=== PATIENT | male | born 1975 | race Caucasian/White ===

== ENCOUNTER 2022-07-11 21:41 | Inpatient (IN) | payer OTHER, SELFPAY ==
[2022-07-11 22:30] VITALS: BP 142/82; PULSE 87; RESP 18; TEMP 36.3; O2SAT 95
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
[2022-07-12 06:00] VITALS: BP 132/72; PULSE 73; RESP 18; TEMP 36.6; O2SAT 96
[2022-07-12] MEDS: Levothyroxine Sodium 112 MCG TABLET PO (08:12)
[2022-07-12] MEDS: Omeprazole 20 MG CAPSULE.DR PO ×2 (08:12→18:16)
[2022-07-12] MEDS: Acetaminophen 325 MG TABLET 650 MG PO ×2 (08:16→23:32)
--- NOTE | 2022-07-12 09:25 | HO.PM.IMCN ---
History of Present Illness Data of Consult Service Date: 07/12/22 Primary Care Provider: SHARI Hollins HPI Reason for consult: Routine Medical H&P This is an insightful 47 yo M who is admitted to the inpatient psychiatric unit. Medical consult has been requested for routine medical H&P (he was transferred from an outside facility). Pt seen and examined in the exam room. He denies any current medical issues. He endorses a medical history of HLD, hypothyroid and GERD. PMH HLD Hypothyroid GERD PSH Denies FH non-contributory SH Denies etoh, illicit substances; endorses smoking cigars a few times a year Review of Systems Review of Systems: negative except HPI PMFSH Social History Household Members: None Housing: Apartment Do you presently have visiting nurse or other home services: No Patient Tobacco Use Status: Never used Tobacco Smoked in Last 30 Days: No e-Cigarette/Vaping Use: Never Used Use of substances other than those prescribed or required for medical reasons: No Have you been hit, kicked, punched, or otherwise hurt by someone within the past year? If so, by whom?: No Do you feel safe in your current relationship?: No Current Relationship Is there a partner from a previous relationship who is making you feel unsafe now?: No Are you made to feel afraid or neglected: No Gnosticist Healthcare Practices: Anabaptist Advance Directives: No Advance Directives Information Provided: No Do you have thoughts of harming others: None Do you have a plan to hurt others: No Plan Recently lost weight without trying: No How much weight loss: Not applicable Eating poorly because of decreased appetite: No Nutrition screen score: 0 Nutrition Risks: No Nutritional Risk Poor oral hygiene: No Meds Allergies Allergy/AdvReac Type Severity Reaction Status Date / Time No Known Allergies Allergy Verified 07/11/22 22:21 Active Medications: Current Medications Acetaminophen (Acetaminophen 325 Mg Tablet) 650 mg PO Q6H PRN PRN Reason: Headache/Pain Mild Scale (1-3) Last Admin: 07/12/22 08:16 Dose: 650 mg Al Hydroxide/Mg Hydroxide (Magnesium Hydrox/Alum Hydrox 30 Ml Oral.Susp) 30 ml PO Q6H PRN PRN Reason: Heartburn/Nausea Haloperidol (Haloperidol 5 Mg Tablet) 10 mg PO BEDTIME BECKY Hydroxyzine HCl (Hydroxyzine Hcl 25 Mg Tablet) 25 mg PO Q6H PRN PRN Reason: Anxiety Levothyroxine Sodium (Levothyroxine Sodium 112 Mcg Tablet) 112 mcg PO DAILY@0630 [facility] Last Admin: 07/12/22 08:12 Dose: 112 mcg Magnesium Hydroxide (Milk Of Magnesia 30 Ml Oral.Susp) 30 ml PO DAILY PRN PRN Reason: Constipation Nicotine Polacrilex (Nicotine Polacrilex 2 Mg Gum) 4 mg BUCCAL Q2H PRN PRN Reason: Nicotine Cravings Omeprazole (Omeprazole 20 Mg Capsule.Dr) 20 mg PO BID@0630,1630 [facility] Last Admin: 07/12/22 08:12 Dose: 20 mg Quetiapine Fumarate (Quetiapine Fumarate 200 Mg Tablet) 200 mg PO BEDTIME [facility] Trazodone HCl (Trazodone Hcl 50 Mg Tablet) 50 mg PO BEDTIME PRN PRN Reason: Insomnia Home Medications Medication Instructions Recorded Confirmed Last Taken Type haloperidol 10 mg tablet 10 mg PO BEDTIME 07/11/22 07/11/22 07/11/22 20:39 History levothyroxine 112 mcg tablet 112 mcg PO DAILY 07/11/22 07/11/22 Unknown History omeprazole 20 mg capsule,delayed 20 mg PO BID 07/11/22 07/11/22 Unknown History release quetiapine 200 mg tablet (Seroquel) 200 mg PO BEDTIME 07/11/22 07/11/22 07/11/22 20:30 History atorvastatin 40 mg tablet 40 mg PO BEDTIME 07/12/22 07/12/22 Unknown History Physical Exam Vital Signs and Narrative: Vital Signs: Last Vital Signs Temp 97.9 F 07/12/22 06:00 Pulse 73 07/12/22 06:00 Resp 18 07/12/22 06:00 BP 132/72 07/12/22 06:00 Pulse Ox 96 07/12/22 06:00 O2 Del Method 07/12/22 06:00 Const: Other: General - no acute distress, appears comfortable Cardiovascular - regular rate and rhythm, S1-S2 Lungs - normal respiratory effort, clear to auscultation bilaterally, no wheezing Abdomen - soft, nontender, no rebound or guarding Extremities - no edema bilaterally Neuro - awake and alert, no focal deficits; cn 2-12 intact b/l Assessment and Plan (1) Routine medical exam: Status: Acute Plan 47 yo M admitted to inpatient psych. Medical consult requested for routine medical H&P (transferred from outside facility). Pt appears to be medically stable. Continue his baseline meds. Consider routine lab (CBC/BMP) if not done at transferring facility. Will sign off, please consult if any issues arise. Thank you.
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
[2022-07-12 20:15] VITALS: BP 147/78; PULSE 86; RESP 18; TEMP 36.6; O2SAT 95
[2022-07-12] MEDS: HaloperidoL 5 MG TABLET 10 MG PO (22:02)
[2022-07-12] MEDS: Atorvastatin Calcium 40 MG TABLET PO (22:02)
[2022-07-12] MEDS: Lithium Carbonate ER 300 MG TABLET.ER 600 MG PO (22:02)
[2022-07-12] MEDS: hydrOXYzine HCL 25 MG TABLET PO (22:02)
[2022-07-12] MEDS: QUEtiapine Fumarate 200 MG TABLET PO (22:02)
[2022-07-13] MEDS: traZODone HCL 50 MG TABLET PO ×2 (01:14→02:17)
[2022-07-13 08:10] VITALS: BP 128/74; PULSE 97; RESP 18; TEMP 36.4; O2SAT 95
[2022-07-13] MEDS: Lithium Carbonate ER 300 MG TABLET.ER 600 MG PO ×2 (10:12→20:36)
[2022-07-13] MEDS: Levothyroxine Sodium 112 MCG TABLET PO (10:13)
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
[2022-07-13] MEDS: Omeprazole 20 MG CAPSULE.DR PO ×2 (11:56→18:11)
[2022-07-13 19:25] VITALS: BP 158/85; PULSE 89; RESP 16; TEMP 36.6; O2SAT 96
[2022-07-13] MEDS: Atorvastatin Calcium 40 MG TABLET PO (20:36)
[2022-07-13] MEDS: QUEtiapine Fumarate 200 MG TABLET PO (20:36)
[2022-07-13] MEDS: HaloperidoL 5 MG TABLET 10 MG PO (20:36)
[2022-07-14] MEDS: traZODone HCL 50 MG TABLET PO ×2 (00:46→01:48)
[2022-07-14] MEDS: Acetaminophen 325 MG TABLET 650 MG PO ×2 (01:15→08:21)
[2022-07-14] MEDS: Dry Mouth Spray 60 ML SPRAY 1 SPRAY MUCOUS MEM ×2 (02:43→05:29)
[2022-07-14] MEDS: Omeprazole 20 MG CAPSULE.DR PO ×2 (05:52→16:11)
[2022-07-14] MEDS: Levothyroxine Sodium 112 MCG TABLET PO (05:52)
[2022-07-14 08:00] VITALS: BP 136/78; PULSE 84; RESP 18; TEMP 36.6; O2SAT 96
[2022-07-14] MEDS: Lithium Carbonate ER 300 MG TABLET.ER 600 MG PO ×2 (08:22→21:35)
[2022-07-14 19:15] VITALS: BP 132/82; PULSE 88; RESP 16; TEMP 36.8; O2SAT 96
--- NOTE | 2022-07-14 19:23 | HO.PSYCHPN ---
Subjective Subjective Date of Service: 07/14/22 Reason For Visit: Schizoaffective disorder bipolar type Interim History: pt still hyperverabl at times, elevated mood, pressured speech, disorganized thought process, racing thoughts, insomnia, poor attention/concentration, impulsivity.?Pt med compliant. Was awake until 1 am last night. Pt tolerating lithium with no side effects Medication Compliance: Yes Side effects from medications: No Attending Groups: No Review of Systems Acute medical concerns: No Medical Review of Systems: unchanged Review of Systems Review of Systems negative except HPI Mental Status Exam Mental Status Exam Narrative: calm, cooperative. intense eye contact. speech incr in amount. nml rate, loudness, tone. decr latency. thoughts generally linear in answering questions and attempting to lay out his narrative. delusions present. affect constricted, hypointense, non-labile. mood not assessed. AVH of angels and demons. denies SI/SIBI/HI. Diagnostics Vital Signs (24Hr): Vital Signs - 24 hr 07/14/22 08:00 Temperature 97.8 F Pulse Rate 84 Respiratory Rate 18 Blood Pressure 136/78 Pulse Oximetry 96 Oxygen Delivery Method Room Air Medications Medications Current Medications Acetaminophen (Acetaminophen 325 Mg Tablet) 650 mg PO Q6H PRN PRN Reason: Headache/Pain Mild Scale (1-3) Last Admin: 07/14/22 08:21 Dose: 650 mg Al Hydroxide/Mg Hydroxide (Magnesium Hydrox/Alum Hydrox 30 Ml Oral.Susp) 30 ml PO Q6H PRN PRN Reason: Heartburn/Nausea Atorvastatin Calcium (Atorvastatin Calcium 40 Mg Tablet) 40 mg PO BEDTIME [facility] Last Admin: 07/13/22 20:36 Dose: 40 mg Haloperidol (Haloperidol 5 Mg Tablet) 10 mg PO BEDTIME [facility] Last Admin: 07/13/22 20:36 Dose: 10 mg Hydroxyzine HCl (Hydroxyzine Hcl 25 Mg Tablet) 25 mg PO Q6H PRN PRN Reason: Anxiety Last Admin: 07/12/22 22:02 Dose: 25 mg Levothyroxine Sodium (Levothyroxine Sodium 112 Mcg Tablet) 112 mcg PO DAILY@0630 [facility] Last Admin: 07/14/22 05:52 Dose: 112 mcg [place] Carbonate ([place] Carbonate Er 300 Mg Tablet.Er) 600 mg PO BID [facility] Last Admin: 07/14/22 08:22 Dose: 600 mg Magnesium Hydroxide (Milk Of Magnesia 30 Ml Oral.Susp) 30 ml PO DAILY PRN PRN Reason: Constipation Melatonin (Melatonin 3 Mg Tablet) 3 mg PO BEDTIME BECKY Nicotine Polacrilex (Nicotine Polacrilex 2 Mg Gum) 4 mg BUCCAL Q2H PRN PRN Reason: Nicotine Cravings Omeprazole (Omeprazole 20 Mg Capsule.Dr) 20 mg PO BID@0630,1630 [facility] Last Admin: 07/14/22 16:11 Dose: 20 mg Quetiapine Fumarate (Quetiapine Fumarate 200 Mg Tablet) 200 mg PO BEDTIME BECKY Last Admin: 07/13/22 20:36 Dose: 200 mg Saliva Substitute (Dry Mouth [place] 60 Ml [place]) 1 spray MUCOUS MEM Q2H PRN PRN Reason: Dry Mouth Last Admin: 07/14/22 05:29 Dose: 1 spray Trazodone HCl (Trazodone Hcl 100 Mg Tablet) 100 mg PO BEDTIME PRN PRN Reason: Insomnia Allergies Allergies Allergy/AdvReac Type Severity Reaction Status Date / Time No Known Allergies Allergy Verified 07/11/22 22:21 Assessment & Plan Assessment & Plan (1) Schizoaffective disorder, bipolar type: Status: Acute Code(s): F25.0 - Schizoaffective disorder, bipolar type (2) Hypothyroidism: Status: Acute Code(s): E03.9 - Hypothyroidism, unspecified Plan 07/14/22 increased trazodone to 100mg aths and added melatonin 3mg at hs continue haldol 10 and seroquel 200 at HS (recently restarted after having been off of them for a week). started lithium 600 BID 07/12 sukhdev. euthyroid currently; continue thyroid replacement therapy. I spent _25 minutes with the patient and/or on the patient floor today, greater than?50% of which was spent counseling/coordinating care. Reason for contiued inpatient stay Substantial Risk for: harm to self, inability to function and rapid decompensation
[2022-07-14] MEDS: HaloperidoL 5 MG TABLET 10 MG PO (21:35)
[2022-07-14] MEDS: QUEtiapine Fumarate 200 MG TABLET PO (21:35)
[2022-07-14] MEDS: Melatonin 3 MG TABLET PO (21:35)
[2022-07-14] MEDS: Atorvastatin Calcium 40 MG TABLET PO (21:35)
[2022-07-14] MEDS: traZODone HCL 100 MG TABLET PO (21:39)
[2022-07-15] MEDS: Dry Mouth Spray 60 ML SPRAY 1 SPRAY MUCOUS MEM ×2 (04:20→22:39)
[2022-07-15] MEDS: Omeprazole 20 MG CAPSULE.DR PO ×2 (09:01→15:42)
[2022-07-15] MEDS: Lithium Carbonate ER 300 MG TABLET.ER 600 MG PO ×2 (09:01→20:23)
[2022-07-15] MEDS: Levothyroxine Sodium 112 MCG TABLET PO (09:01)
[2022-07-15 09:40] VITALS: BP 118/61; PULSE 90; RESP 16; TEMP 36.7; O2SAT 97
[2022-07-15] MEDS: QUEtiapine Fumarate 200 MG TABLET PO (20:23)
[2022-07-15] MEDS: Melatonin 3 MG TABLET PO (20:24)
[2022-07-15] MEDS: HaloperidoL 5 MG TABLET 10 MG PO (20:24)
[2022-07-15] MEDS: Atorvastatin Calcium 40 MG TABLET PO (20:24)
[2022-07-15 20:34] VITALS: BP 142/85; PULSE 86; RESP 20; TEMP 36.4; O2SAT 95
--- NOTE | 2022-07-15 22:06 | P.PNPSI_ITS ---
Subjective Subjective Date of Service: 07/15/22 Reason For Visit: Schizoaffective disorder bipolar type Interim History: calm, cooperative. remains delusional and tangential. asking for his hormone levels to be checked - cortisol and dopamine. an christ told him on the way out the door from the interview that it was the dopamine level he needed to get. reports he slept well last night for the first time in a very long time. informed we will be checking lithium level and associated labs on friday. per staff, c/o being up all NOC friday into friday. appearing hypomanic. hearing from [facility]. reports he is eating well. stood behind his 1:1 staff, holding their shoulders, and whispered into their ear. Mental Status Exam Mental Status Exam Narrative: calm, cooperative. intense eye contact. speech incr in amount. nml rate, loudness, tone. decr latency. thoughts generally tangential and delusional. affect constricted, normo-intense, non-labile. mood not assessed. AVH of angelmihaela and leonides. denies SI/SIBI/HI. Diagnostics Vital Signs (24Hr): Vital Signs - 24 hr 07/15/22 09:40 07/15/22 20:34 Temperature 98.1 F 97.5 F Pulse Rate 90 86 Respiratory Rate 16 20 Blood Pressure 118/61 142/85 H Pulse Oximetry 97 95 Oxygen Delivery Method Room Air Room Air Medications Medications Current Medications Acetaminophen (Acetaminophen 325 Mg Tablet) 650 mg PO Q6H PRN PRN Reason: Headache/Pain Mild Scale (1-3) Last Admin: 07/14/22 08:21 Dose: 650 mg Al Hydroxide/Mg Hydroxide (Magnesium Hydrox/Alum Hydrox 30 Ml Oral.Susp) 30 ml PO Q6H PRN PRN Reason: Heartburn/Nausea Atorvastatin Calcium (Atorvastatin Calcium 40 Mg Tablet) 40 mg PO BEDTIME [facility] Last Admin: 07/15/22 20:24 Dose: 40 mg Haloperidol (Haloperidol 5 Mg Tablet) 10 mg PO BEDTIME [facility] Last Admin: 07/15/22 20:24 Dose: 10 mg Hydroxyzine HCl (Hydroxyzine Hcl 25 Mg Tablet) 25 mg PO Q6H PRN PRN Reason: Anxiety Last Admin: 07/12/22 22:02 Dose: 25 mg Levothyroxine Sodium (Levothyroxine Sodium 112 Mcg Tablet) 112 mcg PO DAILY@0630 [facility] Last Admin: 07/15/22 09:01 Dose: 112 mcg [place] Carbonate ([place] Carbonate Er 300 Mg Tablet.Er) 600 mg PO BID [facility] Last Admin: 07/15/22 20:23 Dose: 600 mg Magnesium Hydroxide (Milk Of Magnesia 30 Ml Oral.Susp) 30 ml PO DAILY PRN PRN Reason: Constipation Melatonin (Melatonin 3 Mg Tablet) 3 mg PO BEDTIME [facility] Last Admin: 07/15/22 20:24 Dose: 3 mg Nicotine Polacrilex (Nicotine Polacrilex 2 Mg Gum) 4 mg BUCCAL Q2H PRN PRN Reason: Nicotine Cravings Omeprazole (Omeprazole 20 Mg Capsule.Dr) 20 mg PO BID@0630,1630 [facility] Last Admin: 07/15/22 15:42 Dose: 20 mg Quetiapine Fumarate (Quetiapine Fumarate 200 Mg Tablet) 200 mg PO BEDTIME [facility] Last Admin: 07/15/22 20:23 Dose: 200 mg Saliva Substitute (Dry Mouth [place] 60 Ml [place]) 1 spray MUCOUS MEM Q2H PRN PRN Reason: Dry Mouth Last Admin: 07/15/22 04:20 Dose: 1 spray Trazodone HCl (Trazodone Hcl 100 Mg Tablet) 100 mg PO BEDTIME PRN PRN Reason: Insomnia Last Admin: 07/14/22 21:39 Dose: 100 mg Allergies Allergies Allergy/AdvReac Type Severity Reaction Status Date / Time No Known Allergies Allergy Verified 07/11/22 22:21 Assessment & Plan Assessment & Plan (1) Schizoaffective disorder, bipolar type: Status: Acute Code(s): F25.0 - Schizoaffective disorder, bipolar type (2) Hypothyroidism: Status: Acute Code(s): E03.9 - Hypothyroidism, unspecified Plan 07/14/22 increased trazodone to 100mg aths and added melatonin 3mg at hs continue haldol 10 and seroquel 200 at HS (recently restarted after having been off of them for a week). started lithium 600 BID 07/12 sukhdev. euthyroid currently; continue thyroid replacement therapy. 07/15: check lithium level and associated labs weds. does not appear to have improved substantially since starting lithium. I spent ___25___ minutes with the patient and/or on the patient floor today, greater than?50% of which was spent counseling/coordinating care. Reason for contiued inpatient stay Substantial Risk for: inability to function and med/psych decompensation
[2022-07-15] MEDS: traZODone HCL 100 MG TABLET PO (22:39)
[2022-07-16] MEDS: Dry Mouth Spray 60 ML SPRAY 1 SPRAY MUCOUS MEM ×4 (00:03→22:24)
[2022-07-16] MEDS: traZODone HCL 100 MG TABLET PO (00:42)
[2022-07-16 08:10] VITALS: BP 112/56; PULSE 77; RESP 18; TEMP 36.6; O2SAT 98
[2022-07-16] MEDS: Lithium Carbonate ER 300 MG TABLET.ER 600 MG PO ×2 (09:36→22:22)
[2022-07-16] MEDS: Levothyroxine Sodium 112 MCG TABLET PO (09:36)
[2022-07-16] MEDS: Omeprazole 20 MG CAPSULE.DR PO ×2 (10:14→17:31)
--- NOTE | 2022-07-16 20:55 | P.PNPSI_ITS ---
Subjective Subjective Date of Service: 07/16/22 Reason For Visit: Schizoaffective disorder bipolar type Interim History: calm, cooperative. no substantial change in presentation. remains delusional and experiencing mixed-modality hallucinations. c/o nightmares. agrees to DC trazodone and increase HS seroquel from 200 mg to 300 mg. per staff, hypo- manic. angels and gargoyles. pleasant in the afternoon, social. c/o insomnia. medication for sleep not helpful. no SI/HI, feels safe on the unit. getting PRN trazodone for sleep, up every couple of hours in the night, c/o nightmares. Mental Status Exam Mental Status Exam Narrative: calm, cooperative. intense eye contact. speech nml amount. nml rate, loudness, tone, latency. thoughts generally more organized, remain delusional. affect constricted, normo-intense, non-labile. mood not assessed. AVH of angels and demons. denies SI/SIBI/HI. Diagnostics Vital Signs (24Hr): Vital Signs - 24 hr 07/16/22 08:10 Temperature 97.8 F Pulse Rate 77 Respiratory Rate 18 Blood Pressure 112/56 L Pulse Oximetry 98 Oxygen Delivery Method Room Air Medications Medications Current Medications Acetaminophen (Acetaminophen 325 Mg Tablet) 650 mg PO Q6H PRN PRN Reason: Headache/Pain Mild Scale (1-3) Last Admin: 07/14/22 08:21 Dose: 650 mg Al Hydroxide/Mg Hydroxide (Magnesium Hydrox/Alum Hydrox 30 Ml Oral.Susp) 30 ml PO Q6H PRN PRN Reason: Heartburn/Nausea Atorvastatin Calcium (Atorvastatin Calcium 40 Mg Tablet) 40 mg PO BEDTIME [facility] Last Admin: 07/15/22 20:24 Dose: 40 mg Haloperidol (Haloperidol 5 Mg Tablet) 10 mg PO BEDTIME [facility] Last Admin: 07/15/22 20:24 Dose: 10 mg Hydroxyzine HCl (Hydroxyzine Hcl 25 Mg Tablet) 25 mg PO Q6H PRN PRN Reason: Anxiety Last Admin: 07/12/22 22:02 Dose: 25 mg Levothyroxine Sodium (Levothyroxine Sodium 112 Mcg Tablet) 112 mcg PO DAILY@0630 [facility] Last Admin: 07/16/22 09:36 Dose: 112 mcg [place] Carbonate ([place] Carbonate Er 300 Mg Tablet.Er) 600 mg PO BID [facility] Last Admin: 07/16/22 09:36 Dose: 600 mg Magnesium Hydroxide (Milk Of Magnesia 30 Ml Oral.Susp) 30 ml PO DAILY PRN PRN Reason: Constipation Melatonin (Melatonin 3 Mg Tablet) 3 mg PO BEDTIME [facility] Last Admin: 07/15/22 20:24 Dose: 3 mg Nicotine Polacrilex (Nicotine Polacrilex 2 Mg Gum) 4 mg BUCCAL Q2H PRN PRN Reason: Nicotine Cravings Omeprazole (Omeprazole 20 Mg Capsule.Dr) 20 mg PO BID@0630,1630 [facility] Last Admin: 07/16/22 17:31 Dose: 20 mg Quetiapine Fumarate (Quetiapine Fumarate 200 Mg Tablet) 200 mg PO BEDTIME [facility] Last Admin: 07/15/22 20:23 Dose: 200 mg Saliva Substitute (Dry Mouth [place] 60 Ml [place]) 1 spray MUCOUS MEM Q2H PRN PRN Reason: Dry Mouth Last Admin: 07/16/22 06:39 Dose: 1 spray Trazodone HCl (Trazodone Hcl 100 Mg Tablet) 100 mg PO BEDTIME PRN PRN Reason: Insomnia Last Admin: 07/16/22 00:42 Dose: 100 mg Allergies Allergies Allergy/AdvReac Type Severity Reaction Status Date / Time No Known Allergies Allergy Verified 07/11/22 22:21 Assessment & Plan Assessment & Plan (1) Schizoaffective disorder, bipolar type: Status: Acute Code(s): F25.0 - Schizoaffective disorder, bipolar type (2) Hypothyroidism: Status: Acute Code(s): E03.9 - Hypothyroidism, unspecified Plan 07/14/22 increased trazodone to 100mg aths and added melatonin 3mg at hs continue haldol 10 and seroquel 200 at HS (recently restarted after having been off of them for a week). started lithium 600 BID 07/12 sukhdev. euthyroid currently; continue thyroid replacement therapy. 07/15: check lithium level and associated labs weds. does not appear to have improved substantially since starting lithium. 07/16: DC trazodone as pt c/o nightmares and other sedating medications more likely to be helpful for pt's illness. increase HS seroquel from 200 to 300 mg for insomnia/psychosis/velia. perhaps slight improvement in hyperverbality and thought organization. I spent ___25___ minutes with the patient and/or on the patient floor today, greater than?50% of which was spent counseling/coordinating care. Reason for contiued inpatient stay Substantial Risk for: inability to function
[2022-07-16 21:00] VITALS: BP 137/67; PULSE 81; RESP 16; TEMP 36.4; O2SAT 97
[2022-07-16] MEDS: QUEtiapine Fumarate 100 MG TABLET PO (22:23)
[2022-07-16] MEDS: HaloperidoL 5 MG TABLET 10 MG PO (22:23)
[2022-07-16] MEDS: Melatonin 3 MG TABLET PO (22:23)
[2022-07-16] MEDS: Atorvastatin Calcium 40 MG TABLET PO (22:24)
[2022-07-16] MEDS: QUEtiapine Fumarate 200 MG TABLET PO (22:46)
[2022-07-17 08:15] VITALS: BP 128/67; PULSE 71; RESP 18; TEMP 36.7; O2SAT 97
[2022-07-17 09:20] LABS: MANUAL DIFF FLAG NO
[2022-07-17 09:25] LABS: Basophils Absolute Auto 0.1 X10*3/uL (0.0-0.2); Basophils Percent Auto 0.9 % (0-2); Eosinophils Absolute Auto 0.3 X10*3/uL (0.0-0.4); Eosinophils Percent Auto 4.7 % (0-4); Hematocrit 40.6 % (42.0-52.0); Hemoglobin 13.1 g/dl (14.0-18.0); Imm Gran Abs Auto 0.01 X10*3/uL (0.00-0.03); Imm Gran Pct Auto 0.2 % (0.0-0.4); Lymphocytes Absolute Auto 1.6 X10*3/uL (1.2-4.9); Lymphocytes Percent Auto 28.7 % (20-40); Mean Corpuscular HGB Conc 32.3 g/dl (31.0-36.0); Mean Corpuscular Hemoglobin 27.7 pg (27.0-33.0); Mean Corpuscular Volume 85.8 fL (80.0-98.0); Mean Platelet Volume 8.8 fL (9.4-12.4); Monocytes Absolute Auto 0.6 X10*3/uL (0.1-1.2); Monocytes Percent Auto 10.4 % (2-11); Neutrophils Absolute Auto 3.1 x10*3/uL (2.0-8.3); Neutrophils Percent Auto 55.1 % (45-73); Platelet Count 218 X10*3/uL (160-400); Red Blood Count 4.73 X10*6/uL (4.60-5.80); Red Cell Distribution Width 14.2 % (11.0-16.0); White Blood Count 5.6 X10*3/uL (4.8-10.8)
[2022-07-17] MEDS: Lithium Carbonate ER 300 MG TABLET.ER 600 MG PO (09:31)
[2022-07-17] MEDS: Levothyroxine Sodium 112 MCG TABLET PO (09:31)
[2022-07-17 09:58] LABS: Lithium 0.37 mmol/L (0.60-1.20)
[2022-07-17 10:06] LABS: Anion Gap 11 (12-20); Blood Urea Nitrogen 12 mg/dL (9-16); Calcium 9.2 mg/dL (8.4-10.2); Carbon Dioxide 30 mmol/L (22-29); Chloride 103 mmol/L (96-108); Estimated Glomerular Filt Rate > 60; Glucose Random 102 mg/dL (60-115); Potassium 4.4 mmol/L (3.3-5.1); Sodium 140 mmol/L (135-145)
[2022-07-17] MEDS: Omeprazole 20 MG CAPSULE.DR PO ×2 (10:15→16:18)
--- NOTE | 2022-07-17 16:10 | P.PNPSI_ITS ---
Subjective Subjective Date of Service: 07/17/22 Reason For Visit: Schizoaffective disorder bipolar type Interim History: calm, cooperative. reports feeling a bit better today. no nightmares last night. not pressured, organized, not spontaneously going on about demons. review labs, low lithium level. agrees to increase dosing to 900 BID. per staff, eating well. c/o AVH. c/o poor sleep 2/2 nightmares. no anx. dep 11/15. denies SI/HI/AVH. Mental Status Exam Mental Status Exam Narrative: calm, cooperative. intense eye contact. speech nml amount. nml rate, loudness, tone, latency. thoughts organized, remain delusional. affect constricted, normo-intense, non-labile. mood not assessed. AVH of angels and demons. denies SI/SIBI/HI. Diagnostics Vital Signs (24Hr): Vital Signs - 24 hr 07/16/22 21:00 07/17/22 08:15 Temperature 97.6 F 98.1 F Pulse Rate 81 71 Respiratory Rate 16 18 Blood Pressure 137/67 128/67 Pulse Oximetry 97 97 Oxygen Delivery Method Room Air Room Air Labs Results: 07/17/22 09:02 07/17/22 09:02 Labs: Laboratory Results - last 48 hr 07/17/22 07/17/22 07/17/22 09:02 09:02 09:02 WBC 5.6 RBC 4.73 Hgb 13.1 L Hct 40.6 L MCV 85.8 MCH 27.7 MCHC 32.3 RDW 14.2 Plt Count 218 MPV 8.8 L Immature Gran % (Auto) 0.2 Neut % (Auto) 55.1 Lymph % (Auto) 28.7 [place] % (Auto) 10.4 Eos % (Auto) 4.7 H Baso % (Auto) 0.9 Lymph # (Auto) 1.6 [place] # (Auto) 0.6 Eos # (Auto) 0.3 Baso # (Auto) 0.1 Abs Immat Gran (auto) 0.01 Absolute Neuts (auto) 3.1 Absolute Nucleated RBC 0.000 Nucleated RBC % (auto) 0.0 Sodium 140 Potassium 4.4 Chloride 103 Carbon Dioxide 30 H Anion Gap 11 L BUN 12 Creatinine 0.72 Estim Creat Clear Calc TNP Estimated GFR > 60 Random Glucose 102 Calcium 9.2 [place] 0.37 L Medications Medications Current Medications Acetaminophen (Acetaminophen 325 Mg Tablet) 650 mg PO Q6H PRN PRN Reason: Headache/Pain Mild Scale (1-3) Last Admin: 07/14/22 08:21 Dose: 650 mg Al Hydroxide/Mg Hydroxide (Magnesium Hydrox/Alum Hydrox 30 Ml Oral.Susp) 30 ml PO Q6H PRN PRN Reason: Heartburn/Nausea Atorvastatin Calcium (Atorvastatin Calcium 40 Mg Tablet) 40 mg PO BEDTIME [facility] Last Admin: 07/16/22 22:24 Dose: 40 mg Haloperidol (Haloperidol 5 Mg Tablet) 10 mg PO BEDTIME [facility] Last Admin: 07/16/22 22:23 Dose: 10 mg Hydroxyzine HCl (Hydroxyzine Hcl 25 Mg Tablet) 25 mg PO Q6H PRN PRN Reason: Anxiety Last Admin: 07/12/22 22:02 Dose: 25 mg Levothyroxine Sodium (Levothyroxine Sodium 112 Mcg Tablet) 112 mcg PO DAILY@0630 [facility] Last Admin: 07/17/22 09:31 Dose: 112 mcg [place] Carbonate ([place] Carbonate Er 450 Mg Tablet.Er) 900 mg PO BID [facility] Magnesium Hydroxide (Milk Of Magnesia 30 Ml Oral.Susp) 30 ml PO DAILY PRN PRN Reason: Constipation Melatonin (Melatonin 3 Mg Tablet) 3 mg PO BEDTIME [facility] Last Admin: 07/16/22 22:23 Dose: 3 mg Nicotine Polacrilex (Nicotine Polacrilex 2 Mg Gum) 4 mg BUCCAL Q2H PRN PRN Reason: Nicotine Cravings Omeprazole (Omeprazole 20 Mg Capsule.Dr) 20 mg PO BID@0630,1630 [facility] Last Admin: 07/17/22 10:15 Dose: 20 mg Quetiapine Fumarate (Quetiapine Fumarate 300 Mg Tablet) 300 mg PO BEDTIME [facility] Saliva Substitute (Dry Mouth [place] 60 Ml [place]) 1 spray MUCOUS MEM Q2H PRN PRN Reason: Dry Mouth Last Admin: 07/16/22 22:24 Dose: 1 spray Allergies Allergies Allergy/AdvReac Type Severity Reaction Status Date / Time No Known Allergies Allergy Verified 07/11/22 22:21 Assessment & Plan Assessment & Plan (1) Schizoaffective disorder, bipolar type: Status: Acute Code(s): F25.0 - Schizoaffective disorder, bipolar type (2) Hypothyroidism: Status: Acute Code(s): E03.9 - Hypothyroidism, unspecified Plan 07/14/22 increased trazodone to 100mg aths and added melatonin 3mg at hs continue haldol 10 and seroquel 200 at HS (recently restarted after having been off of them for a week). started lithium 600 BID 07/12 sukhdev. euthyroid currently; continue thyroid replacement therapy. 07/15: check lithium level and associated labs weds. does not appear to have improved substantially since starting lithium. 07/16: DC trazodone as pt c/o nightmares and other sedating medications more likely to be helpful for pt's illness. increase HS seroquel from 200 to 300 mg for insomnia/psychosis/velia. perhaps slight improvement in hyperverbality and thought organization. 07/17: lithium level 0.37. increase dosing to 900 BID. improvements continue - not pressured, organized thoughts, appears more relaxed. I spent ___25___ minutes with the patient and/or on the patient floor today, greater than?50% of which was spent counseling/coordinating care. Reason for contiued inpatient stay Substantial Risk for: inability to function and rapid decompensation
[2022-07-17 18:43] VITALS: BP 131/77; PULSE 88; RESP 16; TEMP 36.8; O2SAT 96
[2022-07-17] MEDS: Acetaminophen 325 MG TABLET 650 MG PO (18:53)
[2022-07-17 18:56] VITALS: BMI 40.8
[2022-07-17] MEDS: HaloperidoL 5 MG TABLET 10 MG PO (19:49)
[2022-07-17] MEDS: Lithium Carbonate ER 450 MG TABLET.ER 900 MG PO (19:49)
[2022-07-17] MEDS: QUEtiapine Fumarate 300 MG TABLET PO (19:49)
[2022-07-17] MEDS: Melatonin 3 MG TABLET PO (19:50)
[2022-07-17] MEDS: Atorvastatin Calcium 40 MG TABLET PO (19:50)
[2022-07-18 07:00] VITALS: BMI 40.4
[2022-07-18 08:05] VITALS: BP 137/73; PULSE 80; RESP 16; TEMP 36.8; O2SAT 96
[2022-07-18] MEDS: Omeprazole 20 MG CAPSULE.DR PO ×2 (08:35→17:28)
[2022-07-18] MEDS: Lithium Carbonate ER 450 MG TABLET.ER 900 MG PO ×2 (08:35→20:02)
[2022-07-18] MEDS: Levothyroxine Sodium 112 MCG TABLET PO (08:35)
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
[2022-07-18 18:00] VITALS: BP 136/83; PULSE 89; RESP 16; TEMP 36.8; O2SAT 97
[2022-07-18] MEDS: QUEtiapine Fumarate 300 MG TABLET PO (20:02)
[2022-07-18] MEDS: HaloperidoL 5 MG TABLET 10 MG PO (20:02)
[2022-07-18] MEDS: Melatonin 3 MG TABLET PO (20:03)
[2022-07-18] MEDS: Atorvastatin Calcium 40 MG TABLET PO (20:03)
[2022-07-19] MEDS: Levothyroxine Sodium 112 MCG TABLET PO (08:19)
[2022-07-19] MEDS: Ferrous Sulfate 300 MG/5 ML LIQUID PO (08:19)
[2022-07-19] MEDS: Lithium Carbonate ER 450 MG TABLET.ER 900 MG PO ×2 (08:19→23:28)
[2022-07-19] MEDS: Omeprazole 20 MG CAPSULE.DR PO ×2 (08:19→17:18)
[2022-07-19 08:20] VITALS: BP 140/62; PULSE 78; RESP 16; TEMP 36.4; O2SAT 96
--- NOTE | 2022-07-19 15:32 | P.PNPSI_ITS ---
Subjective Subjective Date of Service: 07/19/22 Reason For Visit: Schizoaffective disorder bipolar type Interim History: calm, cooperative. able to reflect that he is more organized and slowed from when he came in. AVH continue apace, however. no complaints or requests. per staff, attending groups. eating well. AVH, anxiety, depression. visible. overwhelmed due to AVH. anx 8, dep 6. no SI/HI. feels safe on the unit. Mental Status Exam Mental Status Exam Narrative: calm, cooperative. intense eye contact, decreased eye blink. speech nml amount. nml rate, loudness, tone, latency. thoughts organized, remain delusional. affect constricted, hyper-intense, non-labile. mood not assessed. AVH of angels and demons. denies SI/SIBI/HI. Diagnostics Vital Signs (24Hr): Vital Signs - 24 hr 07/18/22 18:00 07/19/22 08:20 Temperature 98.3 F 97.5 F Pulse Rate 89 78 Respiratory Rate 16 16 Blood Pressure 136/83 140/62 H Pulse Oximetry 97 96 Oxygen Delivery Method Room Air Room Air BMI result Body Mass Index 40.4 Labs Results: 07/17/22 09:02 07/17/22 09:02 Medications Medications Current Medications Acetaminophen (Acetaminophen 325 Mg Tablet) 650 mg PO Q6H PRN PRN Reason: Headache/Pain Mild Scale (1-3) Last Admin: 07/17/22 18:53 Dose: 650 mg Al Hydroxide/Mg Hydroxide (Magnesium Hydrox/Alum Hydrox 30 Ml Oral.Susp) 30 ml PO Q6H PRN PRN Reason: Heartburn/Nausea Atorvastatin Calcium (Atorvastatin Calcium 40 Mg Tablet) 40 mg PO BEDTIME [facility] Last Admin: 07/18/22 20:03 Dose: 40 mg Ferrous Sulfate (Ferrous Sulfate 300 Mg/5 Ml Liquid) 300 mg PO DAILY [facility] Last Admin: 07/19/22 08:19 Dose: 300 mg Haloperidol (Haloperidol 5 Mg Tablet) 10 mg PO BEDTIME [facility] Last Admin: 07/18/22 20:02 Dose: 10 mg Hydroxyzine HCl (Hydroxyzine Hcl 25 Mg Tablet) 25 mg PO Q6H PRN PRN Reason: Anxiety Last Admin: 07/12/22 22:02 Dose: 25 mg Levothyroxine Sodium (Levothyroxine Sodium 112 Mcg Tablet) 112 mcg PO DAILY@0630 [facility] Last Admin: 07/19/22 08:19 Dose: 112 mcg [place] Carbonate ([place] Carbonate Er 450 Mg Tablet.Er) 900 mg PO BID [facility] Last Admin: 07/19/22 08:19 Dose: 900 mg Magnesium Hydroxide (Milk Of Magnesia 30 Ml Oral.Susp) 30 ml PO DAILY PRN PRN Reason: Constipation Melatonin (Melatonin 3 Mg Tablet) 3 mg PO BEDTIME [facility] Last Admin: 07/18/22 20:03 Dose: 3 mg Nicotine Polacrilex (Nicotine Polacrilex 2 Mg Gum) 4 mg BUCCAL Q2H PRN PRN Reason: Nicotine Cravings Omeprazole (Omeprazole 20 Mg Capsule.Dr) 20 mg PO BID@0630,1630 [facility] Last Admin: 07/19/22 08:19 Dose: 20 mg Quetiapine Fumarate (Quetiapine Fumarate 300 Mg Tablet) 300 mg PO BEDTIME [facility] Last Admin: 07/18/22 20:02 Dose: 300 mg Saliva Substitute (Dry Mouth [place] 60 Ml [place]) 1 spray MUCOUS MEM Q2H PRN PRN Reason: Dry Mouth Last Admin: 07/16/22 22:24 Dose: 1 spray Allergies Allergies Allergy/AdvReac Type Severity Reaction Status Date / Time No Known Allergies Allergy Verified 07/11/22 22:21 Assessment & Plan Assessment & Plan (1) Schizoaffective disorder, bipolar type: Status: Acute Code(s): F25.0 - Schizoaffective disorder, bipolar type (2) Hypothyroidism: Status: Acute Code(s): E03.9 - Hypothyroidism, unspecified Plan 07/14/22 increased trazodone to 100mg aths and added melatonin 3mg at hs continue haldol 10 and seroquel 200 at HS (recently restarted after having been off of them for a week). started lithium 600 BID 07/12 sukhdev. euthyroid currently; continue thyroid replacement therapy. 07/15: check lithium level and associated labs weds. does not appear to have improved substantially since starting lithium. 07/16: DC trazodone as pt c/o nightmares and other sedating medications more likely to be helpful for pt's illness. increase HS seroquel from 200 to 300 mg for insomnia/psychosis/velia. perhaps slight improvement in hyperverbality and thought organization. 07/17: lithium level 0.37. increase dosing to 900 BID. improvements continue - not pressured, organized thoughts, appears more relaxed. 07/18: continue current mgmt. no change in presentation. 07/18: continue current mgmt. no change in presentation. check lithium level around 07/22. I spent ___25___ minutes with the patient and/or on the patient floor today, greater than?50% of which was spent counseling/coordinating care. Reason for contiued inpatient stay Substantial Risk for: inability to function and rapid decompensation
[2022-07-19 23:25] VITALS: BP 139/80; PULSE 79; RESP 16; TEMP 36.6; O2SAT 96
[2022-07-19] MEDS: HaloperidoL 5 MG TABLET 10 MG PO (23:28)
[2022-07-19] MEDS: Atorvastatin Calcium 40 MG TABLET PO (23:29)
[2022-07-19] MEDS: Melatonin 3 MG TABLET PO (23:29)
[2022-07-19] MEDS: QUEtiapine Fumarate 300 MG TABLET PO (23:29)
[2022-07-20 09:15] VITALS: BP 133/68; PULSE 88; RESP 20; TEMP 36.8; O2SAT 95
[2022-07-20] MEDS: Levothyroxine Sodium 112 MCG TABLET PO (09:27)
[2022-07-20] MEDS: Omeprazole 20 MG CAPSULE.DR PO ×2 (09:27→17:58)
[2022-07-20] MEDS: Lithium Carbonate ER 450 MG TABLET.ER 900 MG PO ×2 (09:28→20:39)
[2022-07-20] MEDS: Ferrous Sulfate 300 MG/5 ML LIQUID PO (09:28)
[2022-07-20] MEDS: Acetaminophen 325 MG TABLET 650 MG PO (14:47)
--- NOTE | 2022-07-20 18:29 | HO.PSYCHPN ---
Subjective Subjective Date of Service: 07/20/22 Reason For Visit: Schizoaffective disorder bipolar type Interim History: calm, cooperative. aware he has slowed down a lot and his thoughts are much more organized than prior. continues to experience AVH, however. he believes they will never go away. describes how the guardian fozia are positioning themselves around the unit to guard against demons. c/o minnor ongoing insomnia, declines to increase seroquel. planning to check lithium mondahy. per staff, isolative. anx 11/15. denies depression. nervous about leaving the hospital, concerned he may be attacked by demons if he goes. went to sleep early, appeared to sleep well. Mental Status Exam Mental Status Exam Narrative: calm, cooperative. intense eye contact, decreased eye blink. speech nml amount. nml rate, loudness, tone, latency. thoughts organized, remain delusional. affect constricted, hyper-intense, non-labile. mood not assessed. AVH of angels and demons. denies SI/SIBI/HI. Diagnostics Vital Signs (24Hr): Vital Signs - 24 hr 07/19/22 23:25 07/20/22 09:15 Temperature 97.8 F 98.3 F Pulse Rate 79 88 Respiratory Rate 16 20 Blood Pressure 139/80 133/68 Pulse Oximetry 96 95 Oxygen Delivery Method Room Air Room Air BMI result Body Mass Index 40.4 Labs Results: 07/17/22 09:02 07/17/22 09:02 Medications Medications Current Medications Acetaminophen (Acetaminophen 325 Mg Tablet) 650 mg PO Q6H PRN PRN Reason: Headache/Pain Mild Scale (1-3) Last Admin: 07/20/22 14:47 Dose: 650 mg Al Hydroxide/Mg Hydroxide (Magnesium Hydrox/Alum Hydrox 30 Ml Oral.Susp) 30 ml PO Q6H PRN PRN Reason: Heartburn/Nausea Atorvastatin Calcium (Atorvastatin Calcium 40 Mg Tablet) 40 mg PO BEDTIME [facility] Last Admin: 07/19/22 23:29 Dose: 40 mg Ferrous Sulfate (Ferrous Sulfate 300 Mg/5 Ml Liquid) 300 mg PO DAILY [facility] Last Admin: 07/20/22 09:28 Dose: 300 mg Haloperidol (Haloperidol 5 Mg Tablet) 10 mg PO BEDTIME [facility] Last Admin: 07/19/22 23:28 Dose: 10 mg Hydroxyzine HCl (Hydroxyzine Hcl 25 Mg Tablet) 25 mg PO Q6H PRN PRN Reason: Anxiety Last Admin: 07/12/22 22:02 Dose: 25 mg Levothyroxine Sodium (Levothyroxine Sodium 112 Mcg Tablet) 112 mcg PO DAILY@0630 [facility] Last Admin: 07/20/22 09:27 Dose: 112 mcg [place] Carbonate ([place] Carbonate Er 450 Mg Tablet.Er) 900 mg PO BID [facility] Last Admin: 07/20/22 09:28 Dose: 900 mg Magnesium Hydroxide (Milk Of Magnesia 30 Ml Oral.Susp) 30 ml PO DAILY PRN PRN Reason: Constipation Melatonin (Melatonin 3 Mg Tablet) 3 mg PO BEDTIME [facility] Last Admin: 07/19/22 23:29 Dose: 3 mg Nicotine Polacrilex (Nicotine Polacrilex 2 Mg Gum) 4 mg BUCCAL Q2H PRN PRN Reason: Nicotine Cravings Omeprazole (Omeprazole 20 Mg Capsule.Dr) 20 mg PO BID@0630,1630 [facility] Last Admin: 07/20/22 17:58 Dose: 20 mg Quetiapine Fumarate (Quetiapine Fumarate 300 Mg Tablet) 300 mg PO BEDTIME [facility] Last Admin: 07/19/22 23:29 Dose: 300 mg Saliva Substitute (Dry Mouth [place] 60 Ml [place]) 1 spray MUCOUS MEM Q2H PRN PRN Reason: Dry Mouth Last Admin: 07/16/22 22:24 Dose: 1 spray Allergies Allergies Allergy/AdvReac Type Severity Reaction Status Date / Time No Known Allergies Allergy Verified 07/11/22 22:21 Assessment & Plan Assessment & Plan (1) Schizoaffective disorder, bipolar type: Status: Acute Code(s): F25.0 - Schizoaffective disorder, bipolar type (2) Hypothyroidism: Status: Acute Code(s): E03.9 - Hypothyroidism, unspecified Plan 07/14/22 increased trazodone to 100mg aths and added melatonin 3mg at hs continue haldol 10 and seroquel 200 at HS (recently restarted after having been off of them for a week). started lithium 600 BID 07/12 sukhdev. euthyroid currently; continue thyroid replacement therapy. 07/15: check lithium level and associated labs weds. does not appear to have improved substantially since starting lithium. 07/16: DC trazodone as pt c/o nightmares and other sedating medications more likely to be helpful for pt's illness. increase HS seroquel from 200 to 300 mg for insomnia/psychosis/velia. perhaps slight improvement in hyperverbality and thought organization. 07/17: lithium level 0.37. increase dosing to 900 BID. improvements continue - not pressured, organized thoughts, appears more relaxed. 07/18: continue current mgmt. no change in presentation. 07/18: continue current mgmt. no change in presentation. check lithium level around 07/22. 07/20: continue current mgmt. stable presentation with improved manic Sx but ongoing psychotic Sx. I spent ____15__ minutes with the patient and/or on the patient floor today, greater than?50% of which was spent counseling/coordinating care. Reason for contiued inpatient stay Substantial Risk for: inability to function and med/psych decompensation
[2022-07-20 20:32] VITALS: BP 138/74; PULSE 83; RESP 18; O2SAT 95
[2022-07-20] MEDS: QUEtiapine Fumarate 300 MG TABLET PO (20:39)
[2022-07-20] MEDS: Atorvastatin Calcium 40 MG TABLET PO (20:39)
[2022-07-20] MEDS: Melatonin 3 MG TABLET PO (20:39)
[2022-07-20] MEDS: HaloperidoL 5 MG TABLET 10 MG PO (20:40)
[2022-07-21] MEDS: Dry Mouth Spray 60 ML SPRAY 1 SPRAY MUCOUS MEM (06:50)
[2022-07-21 09:05] VITALS: BP 133/60; PULSE 80; RESP 20; TEMP 36.7; O2SAT 97
[2022-07-21] MEDS: Lithium Carbonate ER 450 MG TABLET.ER 900 MG PO ×2 (09:13→21:47)
[2022-07-21] MEDS: Omeprazole 20 MG CAPSULE.DR PO ×2 (09:13→17:03)
[2022-07-21] MEDS: Levothyroxine Sodium 112 MCG TABLET PO (09:13)
[2022-07-21] MEDS: Ferrous Sulfate 300 MG/5 ML LIQUID PO (09:14)
[2022-07-21 18:00] VITALS: BP 147/75; PULSE 88; RESP 18; TEMP 36.9; O2SAT 96
[2022-07-21] MEDS: Melatonin 3 MG TABLET PO (21:48)
[2022-07-21] MEDS: QUEtiapine Fumarate 300 MG TABLET PO (21:48)
[2022-07-21] MEDS: Atorvastatin Calcium 40 MG TABLET PO (21:48)
[2022-07-21] MEDS: HaloperidoL 5 MG TABLET 10 MG PO (21:48)
--- NOTE | 2022-07-21 21:58 | HO.PSYCHPN ---
Subjective Subjective Date of Service: 07/21/22 Reason For Visit: Schizoaffective disorder bipolar type Interim History: calm, cooperative, resting in bed. no complaints or requests. per staff, feeling better. active, brighter. developing plans for after discharge. having nightmares. no anx/dep. eating and sleeping well. listening to music. Mental Status Exam Mental Status Exam Narrative: calm, cooperative. intense eye contact, decreased eye blink. speech nml amount. nml rate, loudness, tone, latency. thoughts organized, remain delusional. affect constricted, hyper-intense, non-labile. mood not assessed. AVH of angels and yobanions. denies SI/SIBI/HI. Diagnostics Vital Signs (24Hr): Vital Signs - 24 hr 07/21/22 09:05 Temperature 98.1 F Pulse Rate 80 Respiratory Rate 20 Blood Pressure 133/60 Pulse Oximetry 97 Oxygen Delivery Method Room Air BMI result Body Mass Index 40.4 Labs Results: 07/17/22 09:02 07/17/22 09:02 Medications Medications Current Medications Acetaminophen (Acetaminophen 325 Mg Tablet) 650 mg PO Q6H PRN PRN Reason: Headache/Pain Mild Scale (1-3) Last Admin: 07/20/22 14:47 Dose: 650 mg Al Hydroxide/Mg Hydroxide (Magnesium Hydrox/Alum Hydrox 30 Ml Oral.Susp) 30 ml PO Q6H PRN PRN Reason: Heartburn/Nausea Atorvastatin Calcium (Atorvastatin Calcium 40 Mg Tablet) 40 mg PO BEDTIME [facility] Last Admin: 07/21/22 21:48 Dose: 40 mg Ferrous Sulfate (Ferrous Sulfate 300 Mg/5 Ml Liquid) 300 mg PO DAILY [facility] Last Admin: 07/21/22 09:14 Dose: 300 mg Haloperidol (Haloperidol 5 Mg Tablet) 10 mg PO BEDTIME [facility] Last Admin: 07/21/22 21:48 Dose: 10 mg Hydroxyzine HCl (Hydroxyzine Hcl 25 Mg Tablet) 25 mg PO Q6H PRN PRN Reason: Anxiety Last Admin: 07/12/22 22:02 Dose: 25 mg Levothyroxine Sodium (Levothyroxine Sodium 112 Mcg Tablet) 112 mcg PO DAILY@0630 [facility] Last Admin: 07/21/22 09:13 Dose: 112 mcg [place] Carbonate ([place] Carbonate Er 450 Mg Tablet.Er) 900 mg PO BID [facility] Last Admin: 07/21/22 21:47 Dose: 900 mg Magnesium Hydroxide (Milk Of Magnesia 30 Ml Oral.Susp) 30 ml PO DAILY PRN PRN Reason: Constipation Melatonin (Melatonin 3 Mg Tablet) 3 mg PO BEDTIME [facility] Last Admin: 07/21/22 21:48 Dose: 3 mg Nicotine Polacrilex (Nicotine Polacrilex 2 Mg Gum) 4 mg BUCCAL Q2H PRN PRN Reason: Nicotine Cravings Omeprazole (Omeprazole 20 Mg Capsule.Dr) 20 mg PO BID@0630,1630 [facility] Last Admin: 07/21/22 17:03 Dose: 20 mg Quetiapine Fumarate (Quetiapine Fumarate 300 Mg Tablet) 300 mg PO BEDTIME [facility] Last Admin: 07/21/22 21:48 Dose: 300 mg Saliva Substitute ([place]ry [place]outh [place] 60 Ml [place]) 1 spray MUCOUS MEM Q2H PRN PRN Reason: Dry Mouth Last Admin: 07/21/22 06:50 Dose: 1 spray Allergies Allergies Allergy/AdvReac Type Severity Reaction Status Date / Time No Known Allergies Allergy Verified 07/11/22 22:21 Assessment & Plan Assessment & Plan (1) Schizoaffective disorder, bipolar type: Status: Acute Code(s): F25.0 - Schizoaffective disorder, bipolar type (2) Hypothyroidism: Status: Acute Code(s): E03.9 - Hypothyroidism, unspecified Plan 07/14/22 increased trazodone to 100mg aths and added melatonin 3mg at hs continue haldol 10 and seroquel 200 at HS (recently restarted after having been off of them for a week). started lithium 600 BID 07/12 sukhdev. euthyroid currently; continue thyroid replacement therapy. 07/15: check lithium level and associated labs weds. does not appear to have improved substantially since starting lithium. 07/16: DC trazodone as pt c/o nightmares and other sedating medications more likely to be helpful for pt's illness. increase HS seroquel from 200 to 300 mg for insomnia/psychosis/velia. perhaps slight improvement in hyperverbality and thought organization. 07/17: lithium level 0.37. increase dosing to 900 BID. improvements continue - not pressured, organized thoughts, appears more relaxed. 07/18: continue current mgmt. no change in presentation. 07/18: continue current mgmt. no change in presentation. check lithium level around 07/22. 07/20: continue current mgmt. stable presentation with improved manic Sx but ongoing psychotic Sx. 07/21: stable, contnue current mgmt. check labs tomorrow morning. I spent ___15___ minutes with the patient and/or on the patient floor today, greater than?50% of which was spent counseling/coordinating care. Reason for contiued inpatient stay Substantial Risk for: inability to function and med/psych decompensation
[2022-07-22 08:16] VITALS: BP 132/83; PULSE 82; RESP 17; TEMP 36.7; O2SAT 98
[2022-07-22] MEDS: Ferrous Sulfate 300 MG/5 ML LIQUID PO (08:18)
[2022-07-22] MEDS: Lithium Carbonate ER 450 MG TABLET.ER 900 MG PO ×2 (08:19→20:41)
[2022-07-22] MEDS: Omeprazole 20 MG CAPSULE.DR PO ×2 (08:19→17:37)
[2022-07-22] MEDS: Levothyroxine Sodium 112 MCG TABLET PO (08:19)
[2022-07-22 08:27] LABS: MANUAL DIFF FLAG NO
[2022-07-22 08:37] LABS: Basophils Percent Auto 0.6 % (0-2); Eosinophils Absolute Auto 0.3 X10*3/uL (0.0-0.4); Eosinophils Percent Auto 4.8 % (0-4); Hematocrit 40.3 % (42.0-52.0); Hemoglobin 13.1 g/dl (14.0-18.0); Imm Gran Abs Auto 0.04 X10*3/uL (0.00-0.03); Imm Gran Pct Auto 0.6 % (0.0-0.4); Lymphocytes Percent Auto 28.8 % (20-40); Mean Corpuscular HGB Conc 32.5 g/dl (31.0-36.0); Mean Corpuscular Hemoglobin 27.7 pg (27.0-33.0); Mean Corpuscular Volume 85.2 fL (80.0-98.0); Mean Platelet Volume 8.9 fL (9.4-12.4); Monocytes Absolute Auto 0.7 X10*3/uL (0.1-1.2); Monocytes Percent Auto 10.5 % (2-11); Neutrophils Absolute Auto 3.7 x10*3/uL (2.0-8.3); Neutrophils Percent Auto 54.7 % (45-73); Platelet Count 207 X10*3/uL (160-400); Red Blood Count 4.73 X10*6/uL (4.60-5.80); Red Cell Distribution Width 14.5 % (11.0-16.0); White Blood Count 6.8 X10*3/uL (4.8-10.8)
[2022-07-22 09:13] LABS: Lithium 0.66 mmol/L (0.60-1.20)
[2022-07-22 09:16] LABS: Anion Gap 11 (12-20); Blood Urea Nitrogen 12 mg/dL (9-16); Carbon Dioxide 29 mmol/L (22-29); Chloride 104 mmol/L (96-108); Creatinine Clr Calc Pharmacy 156.6; Estimated Glomerular Filt Rate > 60; Glucose Random 116 mg/dL (60-115); Potassium 4.3 mmol/L (3.3-5.1); Sodium 140 mmol/L (135-145)
--- NOTE | 2022-07-22 14:13 | HO.PSYCHPN ---
Subjective Subjective Date of Service: 07/22/22 Reason For Visit: Schizoaffective disorder bipolar type Interim History: calm, cooperative. reports feeling improved mood-javier, especially in terms of depression he came in with. discuss expectation that we will not make progress on AVH and that discharge later this week may be appropriate. pt appears to be in agreement. per staff, alert, awake. guarded. denies anx/dep. denies SI/HI. endorsing AVH. safe, active, appropriate. eating and sleeping well. Mental Status Exam Mental Status Exam Narrative: calm, cooperative. intense eye contact, decreased eye blink. speech nml amount. nml rate, loudness, tone, latency. thoughts organized, remain delusional. affect constricted, hyper-intense, non-labile. mood much less depressed. AVH of angels and demons. denies SI/SIBI/HI. Diagnostics Vital Signs (24Hr): Vital Signs - 24 hr 07/21/22 18:00 07/22/22 08:16 Temperature 98.5 F 98.1 F Pulse Rate 88 82 Respiratory Rate 18 17 Blood Pressure 147/75 H 132/83 Pulse Oximetry 96 98 Oxygen Delivery Method Room Air Room Air BMI result Body Mass Index 40.4 Labs Results: 07/22/22 08:13 07/22/22 08:13 Labs: Laboratory Results - last 48 hr 07/22/22 07/22/22 07/22/22 08:13 08:13 08:13 WBC 6.8 RBC 4.73 Hgb 13.1 L Hct 40.3 L MCV 85.2 MCH 27.7 MCHC 32.5 RDW 14.5 Plt Count 207 MPV 8.9 L Immature Gran % (Auto) 0.6 H Neut % (Auto) 54.7 Lymph % (Auto) 28.8 [place] % (Auto) 10.5 Eos % (Auto) 4.8 H Baso % (Auto) 0.6 Lymph # (Auto) 2.0 [place] # (Auto) 0.7 Eos # (Auto) 0.3 Baso # (Auto) 0.0 Abs Immat Gran (auto) 0.04 H Absolute Neuts (auto) 3.7 Absolute Nucleated RBC 0.000 Nucleated RBC % (auto) 0.0 Sodium 140 Potassium 4.3 Chloride 104 Carbon Dioxide 29 Anion Gap 11 L BUN 12 Creatinine 0.76 Estim Creat Clear Calc 156.6 Estimated GFR > 60 Random Glucose [address] [place] 0.66 Medications Medications Current Medications Acetaminophen (Acetaminophen 325 Mg Tablet) 650 mg PO Q6H PRN PRN Reason: Headache/Pain Mild Scale (1-3) Last Admin: 07/20/22 14:47 Dose: 650 mg Al Hydroxide/Mg Hydroxide (Magnesium Hydrox/Alum Hydrox 30 Ml Oral.Susp) 30 ml PO Q6H PRN PRN Reason: Heartburn/Nausea Atorvastatin Calcium (Atorvastatin Calcium 40 Mg Tablet) 40 mg PO BEDTIME [facility] Last Admin: 07/21/22 21:48 Dose: 40 mg Ferrous Sulfate (Ferrous Sulfate 300 Mg/5 Ml Liquid) 300 mg PO DAILY [facility] Last Admin: 07/22/22 08:18 Dose: 300 mg Haloperidol (Haloperidol 5 Mg Tablet) 10 mg PO BEDTIME [facility] Last Admin: 07/21/22 21:48 Dose: 10 mg Hydroxyzine HCl (Hydroxyzine Hcl 25 Mg Tablet) 25 mg PO Q6H PRN PRN Reason: Anxiety Last Admin: 07/12/22 22:02 Dose: 25 mg Levothyroxine Sodium (Levothyroxine Sodium 112 Mcg Tablet) 112 mcg PO DAILY@0630 [facility] Last Admin: 07/22/22 08:19 Dose: [address] [place] [address] [place] Carbonate ([place] [address] [place] Carbonate Er 450 Mg Tablet.Er) 900 mg PO BID [facility] Last Admin: 07/22/22 08:19 Dose: 900 mg Magnesium Hydroxide (Milk Of Magnesia 30 Ml Oral.Susp) 30 ml PO DAILY PRN PRN Reason: Constipation Melatonin (Melatonin 3 Mg Tablet) 3 mg PO BEDTIME [facility] Last Admin: 07/21/22 21:48 Dose: 3 mg Nicotine Polacrilex (Nicotine Polacrilex 2 Mg Gum) 4 mg BUCCAL Q2H PRN PRN Reason: Nicotine Cravings Omeprazole (Omeprazole 20 Mg Capsule.Dr) 20 mg PO BID@0630,1630 [facility] Last Admin: 07/22/22 08:19 Dose: 20 mg Quetiapine Fumarate (Quetiapine Fumarate 300 Mg Tablet) 300 mg PO BEDTIME [facility] Last Admin: 07/21/22 21:48 Dose: 300 mg Saliva Substitute (Dry Mouth [place] 60 Ml [place]) 1 spray MUCOUS MEM Q2H PRN PRN Reason: Dry Mouth Last Admin: 07/21/22 06:50 Dose: 1 spray Allergies Allergies Allergy/AdvReac Type Severity Reaction Status Date / Time No Known Allergies Allergy Verified 07/11/22 22:21 Assessment & Plan Assessment & Plan (1) Schizoaffective disorder, bipolar type: Status: Acute Code(s): F25.0 - Schizoaffective disorder, bipolar type (2) Hypothyroidism: Status: Acute Code(s): E03.9 - Hypothyroidism, unspecified Plan 07/14/22 increased trazodone to 100mg aths and added melatonin 3mg at hs continue haldol 10 and seroquel 200 at HS (recently restarted after having been off of them for a week). started lithium 600 BID 07/12 sukhdev. euthyroid currently; continue thyroid replacement therapy. 07/15: check lithium level and associated labs weds. does not appear to have improved substantially since starting lithium. 07/16: DC trazodone as pt c/o nightmares and other sedating medications more likely to be helpful for pt's illness. increase HS seroquel from 200 to 300 mg for insomnia/psychosis/velia. perhaps slight improvement in hyperverbality and thought organization. 07/17: lithium level 0.37. increase dosing to 900 BID. improvements continue - not pressured, organized thoughts, appears more relaxed. 07/18: continue current mgmt. no change in presentation. 07/18: continue current mgmt. no change in presentation. check lithium level around 07/22. 07/20: continue current mgmt. stable presentation with improved manic Sx but ongoing psychotic Sx. 07/21: stable, continue current mgmt. check labs tomorrow morning. 07/22: stable, mood very much improved from admission. discussing discharge later this week. labs reassuring, lithium 0.66. I spent __20____ minutes with the patient and/or on the patient floor today, greater than?50% of which was spent counseling/coordinating care. Reason for contiued inpatient stay Substantial Risk for: inability to function and rapid decompensation
[2022-07-22 20:35] VITALS: BP 134/63; PULSE 72; RESP 18; TEMP 36.7; O2SAT 96
[2022-07-22] MEDS: HaloperidoL 5 MG TABLET 10 MG PO (20:41)
[2022-07-22] MEDS: Atorvastatin Calcium 40 MG TABLET PO (20:41)
[2022-07-22] MEDS: Melatonin 3 MG TABLET PO (20:41)
[2022-07-22] MEDS: QUEtiapine Fumarate 300 MG TABLET PO (20:41)
[2022-07-23] MEDS: Levothyroxine Sodium 112 MCG TABLET PO (08:04)
[2022-07-23 08:15] VITALS: BP 141/72; PULSE 78; RESP 18; TEMP 36.9; O2SAT 98
[2022-07-23] MEDS: Lithium Carbonate ER 450 MG TABLET.ER 900 MG PO ×2 (08:53→20:35)
[2022-07-23] MEDS: Omeprazole 20 MG CAPSULE.DR PO ×2 (08:53→17:45)
[2022-07-23] MEDS: Ferrous Sulfate 300 MG/5 ML LIQUID PO (08:54)
--- NOTE | 2022-07-23 14:52 | P.PNPSI_ITS ---
Subjective Subjective Date of Service: 07/23/22 Reason For Visit: Schizoaffective disorder bipolar type Interim History: calm, cooperative. feels his mood is much improved from admission. does not plan to stay and make med changes in attempt to address AVH. in agreement with plan to discharge by the end of the week. denies anxiety regarding AVH or their permanence. no other complaints or requests. MD advised pt to consider when he might feel ready to go. per staff, isolative, withdrawn. med-compliant. high anxiety, worried AVH won't go away. sleeping a lot. Mental Status Exam Mental Status Exam Narrative: calm, cooperative. intense eye contact, decreased eye blink. speech nml amount. nml rate, loudness, tone, latency. thoughts organized, remain delusional. affect constricted, hyper-intense, non-labile. mood much less depressed. AVH of angels and demons. denies SI/SIBI/HI. Diagnostics Vital Signs (24Hr): Vital Signs - 24 hr 07/22/22 20:35 07/23/22 08:15 Temperature 98.1 F 98.5 F Pulse Rate 72 78 Respiratory Rate 18 18 Blood Pressure 134/63 141/72 H Pulse Oximetry 96 98 Oxygen Delivery Method Room Air Room Air BMI result Body Mass Index 40.4 Labs Results: 07/22/22 08:13 07/22/22 08:13 Labs: Laboratory Results - last 48 hr 07/22/22 07/22/22 07/22/22 08:13 08:13 08:13 WBC 6.8 RBC 4.73 Hgb 13.1 L Hct 40.3 L MCV 85.2 MCH 27.7 MCHC 32.5 RDW 14.5 Plt Count 207 MPV 8.9 L Immature Gran % (Auto) 0.6 H Neut % (Auto) 54.7 Lymph % (Auto) 28.8 [place] % (Auto) 10.5 Eos % (Auto) 4.8 H Baso % (Auto) 0.6 Lymph # (Auto) 2.0 [place] # (Auto) 0.7 Eos # (Auto) 0.3 Baso # (Auto) 0.0 Abs Immat Gran (auto) 0.04 H Absolute Neuts (auto) 3.7 Absolute Nucleated RBC 0.000 Nucleated RBC % (auto) 0.0 Sodium 140 Potassium 4.3 Chloride 104 Carbon Dioxide 29 Anion Gap 11 L BUN 12 Creatinine 0.76 Estim Creat Clear Calc 156.6 Estimated GFR > 60 Random Glucose 116 H Calcium 9.0 [place] 0.66 Medications Medications Current Medications Acetaminophen (Acetaminophen 325 Mg Tablet) 650 mg PO Q6H PRN PRN Reason: Headache/Pain Mild Scale (1-3) Last Admin: 07/20/22 14:47 Dose: 650 mg Al Hydroxide/Mg Hydroxide (Magnesium Hydrox/Alum Hydrox 30 Ml Oral.Susp) 30 ml PO Q6H PRN PRN Reason: Heartburn/Nausea Atorvastatin Calcium (Atorvastatin Calcium 40 Mg Tablet) 40 mg PO BEDTIME [facility] Last Admin: 07/22/22 20:41 Dose: 40 mg Ferrous Sulfate (Ferrous Sulfate 300 Mg/5 Ml Liquid) 300 mg PO DAILY [facility] Last Admin: 07/23/22 08:54 Dose: 300 mg Haloperidol (Haloperidol 5 Mg Tablet) 10 mg PO BEDTIME [facility] Last Admin: 07/22/22 20:41 Dose: 10 mg Hydroxyzine HCl (Hydroxyzine Hcl 25 Mg Tablet) 25 mg PO Q6H PRN PRN Reason: Anxiety Last Admin: 07/12/22 22:02 Dose: 25 mg Levothyroxine Sodium (Levothyroxine Sodium 112 Mcg Tablet) 112 mcg PO DAILY@0630 [facility] Last Admin: 07/23/22 08:04 Dose: 112 mcg [place] Carbonate ([place] Carbonate Er 450 Mg Tablet.Er) 900 mg PO BID [facility] Last Admin: 07/23/22 08:53 Dose: 900 mg Magnesium Hydroxide (Milk Of Magnesia 30 Ml Oral.Susp) 30 ml PO DAILY PRN PRN Reason: Constipation Melatonin (Melatonin 3 Mg Tablet) 3 mg PO BEDTIME [facility] Last Admin: 07/22/22 20:41 Dose: 3 mg Nicotine Polacrilex (Nicotine Polacrilex 2 Mg Gum) 4 mg BUCCAL Q2H PRN PRN Reason: Nicotine Cravings Omeprazole (Omeprazole 20 Mg Capsule.Dr) 20 mg PO BID@0630,1630 [facility] Last Admin: 07/23/22 08:53 Dose: 20 mg Quetiapine Fumarate (Quetiapine Fumarate 300 Mg Tablet) 300 mg PO BEDTIME [facility] Last Admin: 07/22/22 20:41 Dose: 300 mg Saliva Substitute (Dry Mouth [place] 60 Ml [place]) 1 spray MUCOUS MEM Q2H PRN PRN Reason: Dry Mouth Last Admin: 07/21/22 06:50 Dose: 1 spray Allergies Allergies Allergy/AdvReac Type Severity Reaction Status Date / Time No Known Allergies Allergy Verified 07/11/22 22:21 Assessment & Plan Assessment & Plan (1) Schizoaffective disorder, bipolar type: Status: Acute Code(s): F25.0 - Schizoaffective disorder, bipolar type (2) Hypothyroidism: Status: Acute Code(s): E03.9 - Hypothyroidism, unspecified Plan 07/14/22 increased trazodone to 100mg aths and added melatonin 3mg at hs continue haldol 10 and seroquel 200 at HS (recently restarted after having been off of them for a week). started lithium 600 BID 07/12 sukhdev. euthyroid currently; continue thyroid replacement therapy. 07/15: check lithium level and associated labs weds. does not appear to have improved substantially since starting lithium. 07/16: DC trazodone as pt c/o nightmares and other sedating medications more likely to be helpful for pt's illness. increase HS seroquel from 200 to 300 mg for insomnia/psychosis/velia. perhaps slight improvement in hyperverbality and thought organization. 07/17: lithium level 0.37. increase dosing to 900 BID. improvements continue - not pressured, organized thoughts, appears more relaxed. 07/18: continue current mgmt. no change in presentation. 07/18: continue current mgmt. no change in presentation. check lithium level around 07/22. 07/20: continue current mgmt. stable presentation with improved manic Sx but ongoing psychotic Sx. 07/21: stable, continue current mgmt. check labs tomorrow morning. 07/22: stable, mood very much improved from admission. discussing discharge later this week. labs reassuring, lithium 0.66. 07/23: remains improved, feeling relatively comfortable with current AVH, doesn't want to change medications to address them during the present hospitalization. planning to discharge sometime later in the week, will reflect on which day is best. I spent ___20___ minutes with the patient and/or on the patient floor today, greater than?50% of which was spent counseling/coordinating care. Reason for contiued inpatient stay Substantial Risk for: inability to function and rapid decompensation
[2022-07-23 20:00] VITALS: BP 133/70; PULSE 84; RESP 18; TEMP 36.5; O2SAT 93
[2022-07-23] MEDS: QUEtiapine Fumarate 300 MG TABLET PO (20:35)
[2022-07-23] MEDS: Atorvastatin Calcium 40 MG TABLET PO (20:35)
[2022-07-23] MEDS: HaloperidoL 5 MG TABLET 10 MG PO (20:35)
[2022-07-23] MEDS: Melatonin 3 MG TABLET PO (20:35)
[2022-07-24 08:30] VITALS: BP 133/64; PULSE 69; RESP 18; TEMP 36.7; O2SAT 96
[2022-07-24] MEDS: Omeprazole 20 MG CAPSULE.DR PO ×2 (09:55→16:09)
[2022-07-24] MEDS: Lithium Carbonate ER 450 MG TABLET.ER 900 MG PO ×2 (09:55→20:33)
[2022-07-24] MEDS: Ferrous Sulfate 300 MG/5 ML LIQUID PO (09:56)
[2022-07-24] MEDS: Levothyroxine Sodium 112 MCG TABLET PO (09:56)
--- NOTE | 2022-07-24 14:28 | P.PNPSI_ITS ---
Subjective Subjective Date of Service: 07/24/22 Reason For Visit: Schizoaffective disorder bipolar type Subjective Notes: Conditional Voluntary Interim History: Pt reports feeling much better than when he came. He reports less VH of demons and angels. He also reports feeling less depressed. No SI/HI. Pt reports sleeping and eating.No behavioral concerns. Medication Compliance: Yes Side effects from medications: No Attending Groups: No Review of Systems Review of Systems negative except HPI Mental Status Exam Mental Status Exam Narrative: calm, cooperative. intense eye contact, decreased eye blink. speech nml amount. nml rate, loudness, tone, latency. thoughts organized, remain delusional. affect constricted, hyper-intense, non-labile. mood much less depressed. AVH of angels and demons. denies SI/SIBI/HI. Diagnostics Vital Signs (24Hr): Vital Signs - 24 hr 07/24/22 20:30 Temperature 98.1 F Pulse Rate 86 Respiratory Rate 16 Blood Pressure 164/91 H Pulse Oximetry 95 Oxygen Delivery Method Room Air BMI result Body Mass Index 40.4 Labs Results: 07/22/22 08:13 07/22/22 08:13 Medications Medications Current Medications Acetaminophen (Acetaminophen 325 Mg Tablet) 650 mg PO Q6H PRN PRN Reason: Headache/Pain Mild Scale (1-3) Last Admin: 07/20/22 14:47 Dose: 650 mg Al Hydroxide/Mg Hydroxide (Magnesium Hydrox/Alum Hydrox 30 Ml Oral.Susp) 30 ml PO Q6H PRN PRN Reason: Heartburn/Nausea Atorvastatin Calcium (Atorvastatin Calcium 40 Mg Tablet) 40 mg PO BEDTIME [facility] Last Admin: 07/24/22 20:32 Dose: 40 mg Ferrous Sulfate (Ferrous Sulfate 300 Mg/5 Ml Liquid) 300 mg PO DAILY [facility] Last Admin: 07/25/22 08:58 Dose: 300 mg Haloperidol (Haloperidol 5 Mg Tablet) 10 mg PO BEDTIME [facility] Last Admin: 07/24/22 20:32 Dose: 10 mg Hydroxyzine HCl (Hydroxyzine Hcl 25 Mg Tablet) 25 mg PO Q6H PRN PRN Reason: Anxiety Last Admin: 07/12/22 22:02 Dose: 25 mg Levothyroxine Sodium (Levothyroxine Sodium 112 Mcg Tablet) 112 mcg PO DAILY@0630 [facility] Last Admin: 07/25/22 08:58 Dose: 112 mcg [place] Carbonate ([place] Carbonate Er 450 Mg Tablet.Er) 900 mg PO BID [facility] Last Admin: 07/25/22 08:58 Dose: 900 mg Magnesium Hydroxide (Milk Of Magnesia 30 Ml Oral.Susp) 30 ml PO DAILY PRN PRN Reason: Constipation Melatonin (Melatonin 3 Mg Tablet) 3 mg PO BEDTIME [facility] Last Admin: 07/24/22 20:33 Dose: 3 mg Nicotine Polacrilex (Nicotine Polacrilex 2 Mg Gum) 4 mg BUCCAL Q2H PRN PRN Reason: Nicotine Cravings Omeprazole (Omeprazole 20 Mg Capsule.Dr) 20 mg PO BID@0630,1630 [facility] Last Admin: 07/25/22 08:57 Dose: 20 mg Quetiapine Fumarate (Quetiapine Fumarate 300 Mg Tablet) 300 mg PO BEDTIME [facility] Last Admin: 07/24/22 20:33 Dose: 300 mg Saliva Substitute (Dry Mouth [place] 60 Ml [place]) 1 spray MUCOUS MEM Q2H PRN PRN Reason: Dry Mouth Last Admin: 07/21/22 06:50 Dose: 1 spray Allergies Allergies Allergy/AdvReac Type Severity Reaction Status Date / Time No Known Allergies Allergy Verified 07/11/22 22:21 Assessment & Plan Assessment & Plan (1) Schizoaffective disorder, bipolar type: Status: Acute Code(s): F25.0 - Schizoaffective disorder, bipolar type (2) Hypothyroidism: Status: Acute Code(s): E03.9 - Hypothyroidism, unspecified Plan 07/14/22 increased trazodone to 100mg aths and added melatonin 3mg at hs continue haldol 10 and seroquel 200 at HS (recently restarted after having been off of them for a week). started lithium 600 BID 07/12 sukhdev. euthyroid currently; continue thyroid replacement therapy. 07/15: check lithium level and associated labs weds. does not appear to have improved substantially since starting lithium. 07/16: DC trazodone as pt c/o nightmares and other sedating medications more likely to be helpful for pt's illness. increase HS seroquel from 200 to 300 mg for insomnia/psychosis/velia. perhaps slight improvement in hyperverbality and thought organization. 07/17: lithium level 0.37. increase dosing to 900 BID. improvements continue - not pressured, organized thoughts, appears more relaxed. 11/10: continue current mgmt. no change in presentation. 07/18: continue current mgmt. no change in presentation. check lithium level around 07/22. 07/20: continue current mgmt. stable presentation with improved manic Sx but ongoing psychotic Sx. 07/21: stable, continue current mgmt. check labs tomorrow morning. 07/22: stable, mood very much improved from admission. discussing discharge later this week. labs reassuring, lithium 0.66. 07/23: remains improved, feeling relatively comfortable with current AVH, doesn't want to change medications to address them during the present hospitalization. planning to discharge sometime later in the week, will reflect on which day is best. 07/24 continue tx. I spent minutes with the patient and/or on the patient floor today, greater than?50% of which was spent counseling/coordinating care. Reason for contiued inpatient stay Substantial Risk for: inability to function
[2022-07-24 20:30] VITALS: BP 164/91; PULSE 86; RESP 16; TEMP 36.7; O2SAT 95
[2022-07-24] MEDS: HaloperidoL 5 MG TABLET 10 MG PO (20:32)
[2022-07-24] MEDS: Atorvastatin Calcium 40 MG TABLET PO (20:32)
[2022-07-24] MEDS: QUEtiapine Fumarate 300 MG TABLET PO (20:33)
[2022-07-24] MEDS: Melatonin 3 MG TABLET PO (20:33)
[2022-07-25 08:45] VITALS: BP 133/87; PULSE 91; RESP 18; TEMP 36.8; O2SAT 97
[2022-07-25] MEDS: Omeprazole 20 MG CAPSULE.DR PO (08:57)
[2022-07-25] MEDS: Levothyroxine Sodium 112 MCG TABLET PO (08:58)
[2022-07-25] MEDS: Ferrous Sulfate 300 MG/5 ML LIQUID PO (08:58)
[2022-07-25] MEDS: Lithium Carbonate ER 450 MG TABLET.ER 900 MG PO (08:58)
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
--- NOTE | 2022-07-25 11:38 | PC.NURSE ---
Patient alert, oriented x3. Reports he feels ready for discharge, denies SI/HI. Reviewed discharge instructions, medications, and belongings with patient. Patient verbalized understanding, denies any questions or concerns at this time. Affect even, thought process logical. Patient able to identify several coping strategies for the future including Zoroastrian. Patient will also be attending partial hospitalization after discharge.
== END 2022-07-25 10:55 | disposition home or self-care (01) | DRG 885 ==
PROVIDERS: Admitting Provider Psychiatry & Neurology Psychiatry; PCP Nurse Practitioner Family; Visit Provider Psychiatry & Neurology Psychiatry
DX: F25.0 Schizoaffective disorder, bipolar type (principal); R45.851 Suicidal ideations; E03.9 Hypothyroidism, unspecified; Z62.810 Personal history of physical and sexual abuse in childhood; Z91.14 Patient's other noncompliance with medication regimen; Z79.890 Hormone replacement therapy; Z79.899 Other long term (current) drug therapy
CPT/HCPCS: 36415; 80048; 80178; 85025

== ENCOUNTER 2022-12-17 23:12 | Inpatient (IN) | payer OTHER, SELFPAY ==
--- OUTSIDE RECORDS SUMMARY | 2022-12-17 23:14 | XMS_ITS | Continuity of Care Document ---
Author Name Unknown Organization [facility] Adult Address [address] [place] [address]- Care Team Providers Care Grinder Set Up Operator External Name Role Phone Ines HAN, Linda Cohen Primary Care Physician Encounter [facility] Date(s): 03/27/22 - 04/26/[address] [address] Allergies, Adverse Reactions, Alerts No Known Allergies Immunizations Given and Recorded Vaccine Date Status Refusal Reason hepatitis B adult vaccine 03/12/22 Given hepatitis B adult vaccine 1 02/12/22 Given tetanus/diphtheria/pertussis, acel(Tdap) 2 02/19/22 Given influenza virus vaccine, inactivated 3 02/12/22 Gi rachid influenza virus vaccine, inactivated 06/03/20 Devonte rded influenza virus vaccine, inactivated 05/24/14 Devonte rded influenza virus vaccine, inactivated 09/16/12 Devonte rded SARS-CoV-2 (COVID-19) mRNA-1273 vaccine 08/08/21 R ecorded SARS-CoV-2 (COVID-19) mRNA-1273 vaccine 12/22/20 R ecorded SARS-CoV-2 (COVID-19) mRNA-1273 vaccine 11/24/20 R ecorded 1Result Comment: [facility]# [id number] 2Result Comment: [facility]# [id number] 3Result Comment: [facility]# [id number] Medications atorvastatin 40 mg oral tablet 1 tablet = 40 mg, By Mouth, Daily at bedtime, # 30 tablet, 5 Refills, Maintenance, 01/25/22 13:39:00 EDT, Tablet, [facility] #[id number], Partial fill upon patient request if the prescription isfor a schedule II opioid drug. Start Date: 01/25/22 Status: Ordered haloperidol 10 mg oral tablet TAKE 1 TABLET BY MOUTH AT BEDTIME FOR PSYCHOSIS Start Date: 11/07/21 Status: Ordered levothyroxine 0.112 mg oral tablet 1 tablet = 112 mcg, By Mouth, Daily in AM, 1 TABLET BY MOUTH DAILY IN THE MORNING ON AN EMPTY STOMACH, # 30 tablet, 5 Refills, Maintenance, 01/25/22 13:39:00 EDT, Tablet, [facility] #[id number],Partial fill upon patient request if the prescripti... Start Date: 01/25/22 Status: Ordered NuLYTELY with Flavor Packs oral powder for reconstitution 240 mL, By Mouth, Every 10 minutes, split prep method, take 1st half of prep evening before procedure, 2nd half 6 hrs prior to procedure., # 1 each, 0 Refills, Maintenance, 05/27/22 17:00:00 EDT, RECPowder, [facility] #[id number], test date 05/10... Start Date: 05/27/22 Status: Ordered omeprazole 20 mg oral enteric coated capsule See Instructions, TAKE 1 CAPSULE BY MOUTH EVERY 12 HOURS, # 60 capsule, 2 Refills, Maintenance, 03/28/22 8:10:00 EDT, [facility] #[id number], Partial fill upon patient request if the prescription is for a schedule II opioid drug., 182.2, cm, 06/0... Start Date: 03/28/22 Status: Ordered QUEtiapine 200 mg oral tablet TAKE 1 TABLET BY MOUTH AT BEDTIME FOR PSYCHOSIS OR MOOD Start Date: 11/07/21 Status: Ordered Problem List Condition Effective Dates Status Health Status Inform ant Manic depression(Confirmed) Active GERD (gastroesophageal reflu x disease)(Confirmed) Active Hyperlipidemia(Confirmed) Active Hypothyroidism(Confirmed) Active Insomnia(Confirmed) Active Anxiety and depression(Confirmed) Active Obese class II(Confirmed) Active Prediabetes(Confirmed) Active Schizoaffective disorder(Confirmed) Active Social History Social History Type Response Smoking Status Never (less than 100 in lifetime) entered on: 11/07/21 Sex
--- OUTSIDE RECORDS SUMMARY | 2022-12-17 23:14 | XMS_ITS | Continuity of Care Document ---
Author Name Unknown Organization [facility] ter Address [address] [place] [id number]- Care Team Providers Care Falafel Cart Cook Name Role Phone Ines HAN, Linda Cohen Primary Care Physician Encounter [facility] Date(s): 07/10/22 - 07/11/[address] [address]- Discharge Disposition: Transfer to [facility] Attending Physician: Abrahan Sexton MD Admitting Physician: Abrahan Sexton MD Referring Physician: Not on Staff, Referring MD Allergies, Adverse Reactions, Alerts No Known Allergies [...] mRNA-1273 vaccine 11/24/20 R ecorded 1Result Comment: [facility]# [id number] 2Result Comment: [facility]# [id number] 3Result Comment: [facility]# [id number] Medications atorvastatin 40 mg oral tablet 1 tablet = 40 mg, By Mouth, Daily at bedtime, # 30 tablet, 5 Refills, Maintenance, 01/25/22 13:39:00 EDT, Tablet, [facility][id number], Partial fill upon patient request if the [...] 5 Refills, Maintenance, 01/25/22 13:39:00 EDT, Tablet, [facility] #[id number],Partial fill upon patient request if the prescripti... Start Date: 01/25/22 Status: Ordered NuLYTELY with Flavor Packs oral powder for reconstitution 240 mL, By Mouth, Every 10 minutes, split prep method, take 1st half of prep evening before procedure, 2nd half 6 hrs prior to procedure., # 1 each, 0 Refills, Maintenance, 05/27/22 17:00:00 EDT, [facility] #[id number], test date 05/10... Start Date: 05/27/22 Status: Ordered omeprazole 20 mg oral enteric coated capsule See Instructions, TAKE 1 CAPSULE BY MOUTH EVERY other day, # 60 capsule, 2 Refills, Maintenance, 03/28/22 8:10:00 EDT, [facility] #[id number], Partial fill upon patient request if the prescription is for a schedule II opioid drug., 182.2, cm, ... Start Date: 03/28/22 Status: Ordered QUEtiapine 200 mg oral tablet TAKE 1 TABLET BY MOUTH AT BEDTIME FOR PSYCHOSIS OR MOOD Start Date: 11/07/21 Status: Ordered Problem List Condition Confirmation Course Effective Dates Status H ealth Status Informant Manic depression Confirmed Active GERD (gastroesophageal reflux disease) Confirmed Active Hyperlipidemia Confirmed Active Hypothyroidism Confirmed Active Insomnia Confirmed Active Anxiety and depression Confirmed Active Obese class II Confirmed Active Prediabetes Confirmed Active Psychosis Confirmed Active Schizoaffective disorder Confirmed Active Vital Signs Most recent to oldest [Reference Range]: 1 2 3 Height 175 cm (07/11/22 4:43 PM) 175 cm (07/11/22 6:35 AM) Weight 121.5 kg (07/11/22 4:43 PM) 121.5 kg (07/11/22 6:35 AM) 121.5 kg (07/11/22 3:07 AM) Oxygen Saturation [94-100 %] 93 % *L* (07/11/22 8:08 PM) 95 % (07/11/22 4:43 PM) 95 % (07/11/22 9:08 AM) Pulse Rate [55-90 bpm] 74 bpm (07/11/22 8:08 PM) 73 bpm (07/11/22 4:43 PM) 73 bpm (07/11/22 9:08 AM) Body Mass Index [18.5-24.99 kg/m2] 39.67 kg/m2 *>HHI* (07/11/22 4:43 PM) Blood Pressure [90-138/55-84 mm Hg] 134/81mm Hg (07/11/22 8:08 PM) 142/78mm Hg *H* (07/11/22 4:43 PM) 113/56mm Hg (07/11/22 9:08 AM) Respiratory Rate [16-30 br/min] 18 br/min (07/11/22 8:08 PM) 18 br/min (07/11/22 4:43 PM) 16 br/min (07/11/22 9:08 AM) Temperature [96.8-100.4 DegF] 97.6 DegF (07/11/22 8:08 PM) 97.6 DegF (07/11/22 4:43 PM) 98.3 DegF (07/11/22 9:08 AM) Mode of Delivery (Oxygen) Room air (07/11/22 8:08 PM) Room air (07/11/22 4:43 PM) Room air (07/11/22 9:08 AM) Blood pressure sites Arm, right (07/11/22 8:08 PM) Arm, left (07/11/22 4:43 PM) Arm, left (07/11/22 9:08 AM) Temperature Route Oral (07/11/22 8:08 PM) Oral (07/11/22 4:43 PM) Oral (07/11/22 9:08 AM) Dry Weight 121.5 kg (07/11/22 4:43 PM) 121.5 kg (07/11/22 6:35 AM) 121.5 kg (07/11/22 3:07 AM) Weight Obtained Via Standing scale 1 (07/10/22 1:44 PM) 1Result Comment: Obtained earlier in the day at PCP office; copying information Social History Social History Type Response Smoking Status Never (less than 100 in lifetime) entered on: 11/07/21 Sex Patient Care team information Personnel Name: Linda Chacon NP Address: Address: [address] [place] [id number]
--- OUTSIDE RECORDS SUMMARY | 2022-12-17 23:14 | XMS_ITS | Continuity of Care Document ---
Author Name Unknown Organization [facility] Adult Address [address] [place] [address]- Care Team Providers Care Microfilm Camera Operator Name Role Phone Ines SPORTS MANAGEMENT PROFESSOR, Linda Cohen Primary Care Physician Encounter [facility] Date(s): 09/12/22 - 10/12/[address] [address]- Allergies, Adverse Reactions, Alerts No Known Allergies Immunizations Given and Recorded Vaccine Date Status Refusal Reason hepatitis B adult vaccine 08/12/22 Given hepatitis B adult vaccine 03/12/22 Given hepatitis [...] mRNA-1273 vaccine 11/24/20 R ecorded 1Result Comment: [facility]# [id number] 2Result Comment: [facility]# [id number] 3Result Comment: [facility]# [id number] Medications atorvastatin 40 mg oral tablet 1 tablet = 40 mg, By Mouth, Daily at bedtime, # 30 tablet, 5 Refills, Maintenance, 08/13/22 16:56:00 EST, Tablet, [facility] #[id number], Partial fill upon patient request if the prescription isfor a schedule II opioid drug., 175, cm, 07/29/22 8... Start Date: 08/13/22 Status: Ordered Centrum Adults oral tablet By Mouth, Daily, 0 Refills, Maintenance, 07/29/22 8:39:00 EST, Partial fill upon patient request ifthe prescription is for a schedule II opioid drug. Start Date: 07/29/22 Status: Ordered ferrous sulfate 325 mg oral tablet 1 tablet = 325 mg, By Mouth, Daily, # 90 tablet, 5 Refills, Maintenance, 09/12/22 12:34:00 EST, Tablet, [facility] #[id number], Partial fill upon patient request if the prescription is for a schedule II opioid drug., 175, cm, 07/29/22 8:27:00 EST... Start Date: 09/12/22 Status: Ordered haloperidol 10 mg oral tablet TAKE 1 TABLET BY MOUTH AT BEDTIME FOR PSYCHOSIS Start Date: 11/07/21 Status: Ordered levothyroxine 0.112 mg oral tablet 1 tablet = 112 mcg, By Mouth, Daily in AM, 1 TABLET BY MOUTH DAILY IN THE MORNING ON AN EMPTY STOMACH, # 90 tablet, 5 Refills, Maintenance, 07/29/22 8:57:00 EST, Tablet, [facility] #[id number], Partial fill upon patient request if the prescriptio... Start Date: 07/29/22 Status: Ordered lithium 450 mg oral tablet, extended release TAKE 2 TABLETS BY MOUTH TWICE DAILY Start Date: 07/29/22 Status: Ordered Melatonin 3 mg oral tablet 1 tablet = 3 mg, By Mouth, Daily at bedtime, for 90 days, TAKE 1 TABLET BY MOUTH AT BEDTIME, # 90 tablet, 4 Refills, Acute 10/22/23 8:58:00 EST, 07/29/22 8:58:00 EST, Tablet, [facility] #[id number], Partial fill upon patient request if the prescr... Start Date: 07/29/22 Stop Date: 10/22/23 Status: Ordered NuLYTELY with Flavor Packs oral powder for reconstitution 240 mL, By Mouth, Every 10 minutes, split prep method, take 1st half of prep evening before procedure, 2nd half 6 hrs prior to procedure., # 1 each, 0 Refills, Maintenance, 05/27/22 17:00:00 EDT, [facility] #[id number], test date .. Start Date: 05/27/22 Status: Ordered omeprazole 20 mg oral enteric coated capsule 1 capsule = 20 mg, By Mouth, Every Friday, and Friday, # 13 capsule, 6 Refills, Maintenance, 09/27/22 8:56:00 EST, [facility] #[id number], Partial fill upon patient request if the prescription is for a schedule II opioid drug., 175, c... Start Date: 09/27/22 Stop Date: 04/25/23 Status: Ordered QUEtiapine 300 mg oral tablet 1 tablet = 300 mg, By Mouth, Daily at bedtime, # 90 tablet, 0 Refills, Maintenance, 07/29/22 8:37:00 EST, Tablet, Partial fill upon patient request if the prescription is for a schedule II opioid drug. Start Date: 07/29/22 Status: Ordered QUEtiapine 300 mg oral tablet TAKE 1 TABLET BY MOUTH AT BEDTIME Start Date: 07/29/22 Status: Ordered Problem List Condition Confirmation Course Effective Dates Status H ealth Status Informant Manic depression Confirmed Active GERD (gastroesophageal reflux disease) Confirmed Active Hyperlipidemia Confirmed Active Hypothyroidism Confirmed Active Insomnia Confirmed Active Anxiety and depression Confirmed Active Prediabetes Confirmed Active Psychosis Confirmed Active Schizoaffective disorder Confirmed Active Severe obesity Confirmed Active Social History Social History Type Response Smoking Status Never (less than 100 in lifetime) entered on: 11/07/21 Sex Patient Care team information Care Team Personnel Name: Linda Chacon NP Position: S PCO Associate Professional Member Role: PCP Address: Address: [address] [place] [address]
--- OUTSIDE RECORDS SUMMARY | 2022-12-17 23:15 | XMS_ITS | Continuity of Care Document ---
Author Name Unknown Organization [facility] Adult Address [address] [place] [address]- Care Team Providers Care Scientist Engineer Name Role Phone Linda Chacon NP Primary Care Physician [phone] [place] [facility] [place] - 03/09/22 [facility] [address] [place] [id number]- Allergies, Adverse Reactions, Alerts No Known Allergies Immunizations Given and Recorded Vaccine Date Status Refusal Reason tetanus/diphtheria/pertussis, acel(Tdap) 1 02/19/22 Given influenza virus vaccine, inactivated 2 02/12/22 Gi rachid influenza virus vaccine, inactivated 06/03/20 Devonte rded influenza virus vaccine, inactivated 05/24/14 Devonte rded influenza virus vaccine, inactivated 09/16/12 Devonte rded hepatitis B adult vaccine 3 02/12/22 Given SARS-CoV-2 (COVID-19) mRNA-1273 vaccine 08/08/21 R ecorded SARS-CoV-2 (COVID-19) mRNA-1273 vaccine 12/22/20 R ecorded SARS-CoV-2 (COVID-19) mRNA-1273 vaccine 11/24/20 R ecorded 1Result Comment: [facility]# [id number] 2Result Comment: [facility]# [id number] 3Result Comment: [facility]# [id number] Medications atorvastatin 40 mg oral tablet 1 tablet = 40 mg, By Mouth, Daily at bedtime, # 30 tablet, 5 Refills, Maintenance, 01/25/22 13:39:00 EDT, Tablet, [facility] #[id number], Partial fill upon patient request if the [...] 5 Refills, Maintenance, 01/25/22 13:39:00 EDT, Tablet, [facility] #[id number],Partial fill upon patient request if the prescripti... Start Date: 01/25/22 Status: Ordered NuLYTELY with Flavor Packs oral powder for reconstitution 240 mL, By Mouth, Every 10 minutes, split prep method, take 1st half of prep evening before procedure, 2nd half 6 hrs prior to procedure., # 1 each, 0 Refills, Maintenance, 05/27/22 17:00:00 EDT, RECPowder, [facility] #[id number], test date .. Start Date: 05/27/22 Status: Ordered omeprazole 20 mg oral enteric coated capsule TAKE 1 CAPSULE BY MOUTH EVERY 12 HOURS Start Date: 11/07/21 Status: Ordered QUEtiapine 200 mg oral tablet [...]
--- OUTSIDE RECORDS SUMMARY | 2022-12-17 23:15 | XMS_ITS | Continuity of Care Document ---
Author Name Unknown Organization [facility] Adult Address [address] [place] [address]- Care Team Providers Care Shop Mechanic Name Role Phone Ines INSPECTOR WIRE PRODUCTS, Linda Cohen Primary Care Physician [facility]counter [facility] Date(s): 10/09/22 - 11/08/[address] [address]- Allergies, Adverse Reactions, Alerts No Known Allergies [...] mRNA-1273 vaccine 11/24/20 R ecorded 1Result Comment: [facility]# [id number] 2Result Comment: [facility]# [id number] 3Result Comment: [facility]# [id number] Medications atorvastatin 40 mg oral tablet 1 tablet = 40 mg, By Mouth, Daily at bedtime, # 30 tablet, 5 Refills, Maintenance, 08/13/22 16:56:00 EST, Tablet, [facility] #[id number], Partial fill upon patient request if the [...] 5 Refills, Maintenance, 09/12/22 12:34:00 EST, Tablet, [facility] #[id number], Partial fill upon patient request if the [...] tablet, 5 Refills, Maintenance, 07/29/22 8:57:00 EST, [id number], Partial fill upon patient request if the prescriptio... Start Date: 07/29/22 Status: Ordered lithium 450 mg oral tablet, extended release 1 tablet = 450 mg, By Mouth, 2 times a day, TAKE 1 TABLETS BY MOUTH TWICE DAILY Start Date: 07/29/22 Status: Ordered Melatonin 3 mg oral tablet 1 tablet = 3 mg, By Mouth, Daily at bedtime, 0 Refills, Maintenance, 11/04/22 9:39:00 EST, Partial fill upon patient request if the prescription is for a schedule II opioid drug. Start Date: 11/04/22 Status: Ordered Melatonin 3 mg oral tablet 1 tablet = 3 mg, By Mouth, Daily at bedtime, for 90 days, TAKE 1 TABLET BY MOUTH AT BEDTIME, # 90 tablet, 4 Refills, Acute 10/22/23 8:58:00 EST, 07/29/22 8:58:00 EST, [facility][id number], Partial fill upon patient request if the prescr... Start Date: 07/29/22 Stop Date: 10/22/23 Status: Ordered NuLYTELY with Flavor Packs oral powder for reconstitution 240 mL, By Mouth, Every 10 minutes, split prep method, take 1st half of prep evening before procedure, 2nd half 6 hrs prior to procedure., # 1 each, 0 Refills, Maintenance, 05/27/22 17:00:00 EDT, RECPowder, [facility] #[id number], test date 05/10... Start Date: 05/27/22 Status: Ordered omeprazole 20 mg oral enteric coated capsule 1 capsule = 20 mg, By Mouth, Every Friday, and Friday, # 13 capsule, 6 Refills, Maintenance, 09/27/22 8:56:00 EST, [facility] #[id number], Partial fill upon patient request if the [...] opioid drug. Start Date: 07/29/22 Status: Ordered traZODone 50 mg oral tablet 50 mg, 1, tablet, By Mouth, Daily at bedtime, PRN, Refills 0, Maintenance, Insomnia, 11/04/22 9:39:00 EST, Partial fill upon patient request if the prescription is for a schedule II opioid drug. Start Date: 11/04/22 Status: Ordered Problem List Condition Confirmation Course Effective Dates Status H ealth Status Informant Manic depression Confirmed Active GERD (gastroesophageal reflux disease) Confirmed Active Hyperlipidemia Confirmed Active Hypothyroidism Confirmed Active Insomnia Confirmed Active Anxiety and depression Confirmed Active Posttraumatic stress disorder Confirmed Active Prediabetes Confirmed Active Psychosis Confirmed Active Schizoaffective disorder, bipolar type Confirmed Active Schizoaffective disorder Confirmed Active Severe obesity Confirmed Active Social History Social History Type Response Smoking Status Never (less than 100 in lifetime) entered on: 11/07/21 Sex Patient Care team information Care Team Personnel Name: Linda Chacon NP Position: [facility] PCO Associate Professional Member Role: PCP Address: Address: [address] [place] [phone]-
--- OUTSIDE RECORDS SUMMARY | 2022-12-17 23:15 | XMS_ITS | Continuity of Care Document ---
Author Name Unknown Organization [facility] Adult Address [address] [place] [address]- Care Team Providers Care Power Sewing Machine Operator Name Role Phone Ines GETTER OPERATOR, Linda Cohen Primary Care Physician [facility]counter [facility] Date(s): 07/05/22 - 08/04/[address] [address]- Allergies, Adverse Reactions, Alerts No Known Allergies [...] mRNA-1273 vaccine 11/24/20 R ecorded 1Result Comment: [facility]# [id number] 2Result Comment: [facility]# [id number] 3Result Comment: [facility]# [id number] Medications atorvastatin 40 mg oral tablet 1 tablet = 40 mg, By Mouth, Daily at bedtime, # 90 tablet, 3 Refills, Maintenance, 07/29/22 8:54:00EST, Tablet, [facility] #[id number], Partial fill upon patient request if the prescription is for a schedule II opioid drug., 175, cm, 07/29/22 8:... Start Date: 07/29/22 Status: Ordered Centrum Adults oral tablet By Mouth, Daily, 0 Refills, Maintenance, 07/29/22 8:39:00 EST, Partial fill upon patient request ifthe prescription is for a schedule II opioid drug. Start Date: 07/29/22 Status: Ordered ferrous sulfate 325 mg oral tablet 1 tablet = 325 mg, By Mouth, Daily, # 270 tablet, 0 Refills, Maintenance, 07/29/22 8:38:00 EST, Tablet, Partial fill upon patient request if the prescription is for a schedule II opioid drug. Start Date: 07/29/22 Status: Ordered haloperidol 10 mg oral tablet TAKE 1 TABLET BY MOUTH AT BEDTIME FOR PSYCHOSIS Start Date: 11/07/21 Status: Ordered levothyroxine 0.112 mg oral tablet 1 tablet = 112 mcg, By Mouth, Daily in AM, 1 TABLET BY MOUTH DAILY IN THE MORNING ON AN EMPTY STOMACH, # 90 tablet, 5 Refills, Maintenance, 07/29/22 8:57:00 EST, Tablet, [facility] #[id number], Partial fill upon patient request if the [...] 10/22/23 8:58:00 EST, 07/29/22 8:58:00 EST, Tablet, [facility] #[id number], Partial fill upon patient request if the prescr... Start Date: 07/29/22 Stop Date: 10/22/23 Status: Ordered naproxen 500 mg oral tablet 1 tablet = 500 mg, By Mouth, 2 times a day, PRN Pain , Moderate, for 14 days, with food, # 28 tablet, 0 Refills, Acute 08/12/22 9:03:00 EST, 07/29/22 9:03:00 EST, Tablet, [facility] #[id number],Partial fill upon patient request if the prescripti... Start Date: 07/29/22 Stop Date: 08/12/22 Status: Ordered NuLYTELY with Flavor Packs oral powder for reconstitution 240 mL, By Mouth, Every 10 minutes, split prep method, take 1st half of prep evening before procedure, 2nd half 6 hrs prior to procedure., # 1 each, 0 Refills, Maintenance, 05/27/22 17:00:00 EDT, [facility] #[id number], test date 05/10... Start Date: 05/27/22 Status: Ordered omeprazole 20 mg oral enteric coated capsule 1 capsule = 20 mg, By Mouth, Every Friday, and Friday, # 13 capsule, 2 Refills, Maintenance, 03/28/22 8:10:00 EDT, [facility] #[id number], Partial fill upon patient request if the prescription is for a schedule II opioid drug., 182.2,... Start Date: 03/28/22 Stop Date: 09/27/22 Status: Ordered QUEtiapine 300 mg oral tablet [...] Associate Professional Member Role: PCP Address: Address: [facility] [address]rd floor [place], [place] [address]
--- OUTSIDE RECORDS SUMMARY | 2022-12-17 23:15 | XMS_ITS | Continuity of Care Document ---
Author Name Unknown Organization [facility] Address [address] [place] [address]- Care Team Providers Care Computer Help Desk Specialist Name Role Phone Ines HAN, Linda Cohen Primary Care Physician Encounter [facility] Date(s): 02/07/22 - 03/09/22 [facility] [address] [place] [address] [place] Allergies, Adverse Reactions, Alerts No Known Allergies [...] mRNA-1273 vaccine 11/24/20 R ecorded 1Result Comment: [facility]# [id number] 2Result Comment: [facility]# [id number] 3Result Comment: [facility]# [id number] Medications atorvastatin 40 mg oral tablet 1 tablet = 40 mg, By Mouth, Daily at bedtime, # 30 tablet, 5 Refills, Maintenance, 01/25/22 13:39:00 EDT, Tablet, [facility] #[id number], Partial fill upon patient request if the [...] 5 Refills, Maintenance, 01/25/22 13:39:00 EDT, Tablet, [facility] #[id number],Partial fill upon patient request if the prescripti... Start Date: 01/25/22 Status: Ordered NuLYTELY with Flavor Packs oral powder for reconstitution 240 mL, By Mouth, Every 10 minutes, split prep method, take 1st half of prep evening before procedure, 2nd half 6 hrs prior to procedure., # 1 each, 0 Refills, Maintenance, 05/27/22 17:00:00 EDT, [facility]Powder, [facility] #[id number], test date .. Start Date: 05/27/22 Status: [...]
--- OUTSIDE RECORDS SUMMARY | 2022-12-17 23:15 | XMS_ITS | Continuity of Care Document ---
Author Name Unknown Organization [facility] ter Address [address] [place] [address]- Care Team Providers Care Channel Account Manager Name Role Phone Ines HAN, Linda Cohen Primary Care Physician [place] [facility] [place] 11/04/22 - 11/05/[address] [address]- Encounter Diagnosis Visual hallucination(Final) - 11/04/22 Manic state(Final) - 11/04/22 Discharge Disposition: Transfer to Psych Facility Attending Physician: Meredith Azul MD Admitting Physician: Meredith Azul MD Referring Physician: Not on Staff, Referring [...] mRNA-1273 vaccine 11/24/20 R ecorded 1Result Comment: [facility]# [id number] 2Result Comment: [facility]# [id number] 3Result Comment: [facility]# [id number] Medications atorvastatin 40 mg oral tablet 1 tablet = 40 mg, By Mouth, Daily at bedtime, # 30 tablet, 5 Refills, Maintenance, 08/13/22 16:56:00 EST, Tablet, [facility] #[id number], Partial fill upon patient request if the [...] 5 Refills, Maintenance, 09/12/22 12:34:00 EST, Tablet, [facility] #[id number], Partial fill upon patient request if the [...] 5 Refills, Maintenance, 07/29/22 8:57:00 EST, Tablet, [facility] #[id number], Partial fill upon patient request if the [...] 10/22/23 8:58:00 EST, 07/29/22 8:58:00 EST, Tablet, [facility] #[id number], Partial fill upon patient request if the prescr... Start Date: 07/29/22 Stop Date: 10/22/23 Status: Ordered NuLYTELY with Flavor Packs oral powder for reconstitution 240 mL, By Mouth, Every 10 minutes, split prep method, take 1st half of prep evening before procedure, 2nd half 6 hrs prior to procedure., # 1 each, 0 Refills, Maintenance, 05/27/22 17:00:00 EDT, [facility]Powder, [facility] #[id number], test date 05/10... Start Date: 05/27/22 Status: Ordered omeprazole 20 mg oral enteric coated capsule 1 capsule = 20 mg, By Mouth, Every Friday, and Friday, # 13 capsule, 6 Refills, Maintenance, 09/27/22 8:56:00 EST, [facility] #[id number], Partial fill upon patient request if the [...] disorder Confirmed Active Severe obesity Confirmed Active Vital Signs Most recent to oldest [Reference Range]: 1 2 3 Oxygen Saturation [94-100 %] 99 % (11/05/22 2:29 PM) 98 % (11/05/22 6:27 AM) 99 % (11/04/22 8:59 PM) Pulse Rate [55-90 bpm] 80 bpm (11/05/22 2:29 PM) 80 bpm (11/05/22 6:27 AM) 70 bpm (11/04/22 8:59 PM) Blood Pressure [90-138/55-84 mm Hg] 134/77mm Hg (11/05/22 2:29 PM) 115/65mm Hg (11/05/22 6:27 AM) 133/77mm Hg (11/04/22 8:59 PM) Respiratory Rate [16-30 br/min] 18 br/min (11/05/22 2:29 PM) 18 br/min (11/05/22 6:27 AM) 16 br/min (11/04/22 8:59 PM) Temperature [96.8-100.4 DegF] 97.3 DegF (11/05/22 2:29 PM) 98.9 DegF (11/04/22 8:59 PM) 97.6 DegF (11/04/22 6:00 PM) Mode of Delivery (Oxygen) Room air (11/05/22 2:29 PM) Room air (11/04/22 8:59 PM) Room air (11/04/22 6:00 PM) Blood pressure sites Arm, right (11/05/22 2:29 PM) Arm, right (11/05/22 6:27 AM) Arm, left (11/04/22 8:59 PM) Temperature Route Oral (11/05/22 2:29 PM) Oral (11/04/22 8:59 PM) Oral (11/04/22 6:00 PM) Social History Social History Type Response Smoking Status Never (less than 100 in lifetime) entered on: 11/07/21 Sex EKG study * Event Display: ECG 12-Lead Authored Date: Please click on pdf link to open report * Event Display: ECG 12-Lead Authored Date: [id number] Ventricular Rate: 76 BPM Atrial Rate: 76 BPM P-R Interval: 156 ms QRS Duration: 86 ms Q-T Interval: 386 ms QTC Calculation(Bazett): 434 ms P [place]: 52 degrees R [place]: 38 degrees T [place]: 27 degrees Normal sinus rhythm Normal ECG When compared with ECG of 11-JUL-2022 11:17, No significant change was found Confirmed by CLAU BONNER DO ([id number]) on 11/04/2022 8:06:45 AM Dixon: CLAU BONNER DO Patient Care team information Care Team Personnel Name: Linda Chacon NP Position: [facility] PCO Associate Professional Member Role: PCP Address: Address: [address] [place] [address]- Name: *[facility], ED Attending Position: [facility] ED Attendings Patient Name: Meredith Azul MD Position: [facility] ED Medicine MD Member Role: Admitting Physician Address: Address: [address] [place] [address] [place] [address]- Name: Adela Bardales RN Position: [facility] ED RN W/OE and Tasks Member Role: Patient Care Provider
--- OUTSIDE RECORDS SUMMARY | 2022-12-17 23:15 | XMS_ITS | Continuity of Care Document ---
Author Name Unknown Organization [facility] Adult Address [address] [place] [address]- Care Team Providers Care Abrasive Coating Machine Operator Name Role Phone Ines WET PROCESS HEAD MILLER, Linda Cohen Primary Care Physician [phone] Encounter [facility] Date(s): 11/07/22 - 12/07/[address] [address]- Allergies, Adverse Reactions, Alerts No Known Allergies [...] vaccine 11/24/20 R ecorded 1Result Comment: [facility]# [id number] 2Result Comment: [facility]# [id number] 3Result Comment: [facility]# [id number] Medications atorvastatin 40 mg oral tablet 1 tablet = 40 mg, By Mouth, Daily at bedtime, # 30 tablet, 5 Refills, Maintenance, 08/13/22 16:56:00 EST, Tablet, [facility] #[id number], Partial fill upon patient request if the [...] 5 Refills, Maintenance, 09/12/22 12:34:00 EST, Tablet, [facility] #[id number], Partial fill upon patient request if the [...] tablet, 5 Refills, Maintenance, 07/29/22 8:57:00 EST, [facility] #[id number], Partial fill upon patient request if the [...] Acute 10/22/23 8:58:00 EST, 07/29/22 8:58:00 EST, [facility] #[id number], Partial fill upon patient request if the prescr... Start Date: 07/29/22 Stop Date: 10/22/23 Status: Ordered NuLYTELY with Flavor Packs oral powder for reconstitution 240 mL, By Mouth, Every 10 minutes, split prep method, take 1st half of prep evening before procedure, 2nd half 6 hrs prior to procedure., # 1 each, 0 Refills, Maintenance, 05/27/22 17:00:00 EDT, RECPowder, [facility] #[id number], test date 05/10... Start Date: 05/27/22 Status: Ordered omeprazole 20 mg oral enteric coated capsule 1 capsule = 20 mg, By Mouth, Every Friday, and Friday, # 13 capsule, 6 Refills, Maintenance, 09/27/22 8:56:00 EST, [facility] #[id number], Partial fill upon patient request if the [...] Team Personnel Name: Linda Chacon NP Position: [facility] PCO Associate Professional Member Role: PCP Address: Address: [address] [place] [address]
--- OUTSIDE RECORDS SUMMARY | 2022-12-17 23:15 | XMS_ITS | Continuity of Care Document ---
Author Name Unknown Organization [facility] Adult Address [address] [place] [address]- Care Team Providers Care Thermoplastic Technician Name Role Phone Ines HAN, Linda Cohen Primary Care Physician Encounter [facility] Date(s): 02/11/22 - 03/13/[address] [address] Allergies, Adverse Reactions, Alerts No Known Allergies [...] mRNA-1273 vaccine 11/24/20 R ecorded 1Result Comment: [facility]# [id number] 2Result Comment: [facility]# [id number] 3Result Comment: [facility]# [id number] Medications atorvastatin 40 mg oral tablet 1 tablet = 40 mg, By Mouth, Daily at bedtime, # 30 tablet, 5 Refills, Maintenance, 01/25/22 13:39:00 EDT, Tablet, [facility] #[id number], Partial fill upon patient request if the [...] 5 Refills, Maintenance, 01/25/22 13:39:00 EDT, Tablet, [facility] #[id number],Partial fill upon patient request if the prescripti... Start Date: 01/25/22 Status: Ordered NuLYTELY with Flavor Packs oral powder for reconstitution 240 mL, By Mouth, Every 10 minutes, split prep method, take 1st half of prep evening before procedure, 2nd half 6 hrs prior to procedure., # 1 each, 0 Refills, Maintenance, 05/27/22 17:00:00 EDT, RECPowder, [facility] #[id number], test date .. Start Date: 05/27/22 Status: [...]
--- OUTSIDE RECORDS SUMMARY | 2022-12-17 23:15 | XMS_ITS | Continuity of Care Document ---
Author Name Unknown Organization [facility] Adult Address [address] [place] [address]- Care Team Providers Care Molding Process Technician Name Role Phone Linda Chacon NP Primary Care Physician [place] [facility] [place] 02/06[place]22 - 02/13/22 [facility] [address] [place] [address]- Attending Physician: Linda Chacon NP Allergies, Adverse Reactions, Alerts No Known Allergies Immunizations Given and Recorded Vaccine Date Status Refusal Reason influenza virus vaccine, inactivated 1 02/12/22 Gi rachid influenza virus vaccine, inactivated 06/03/20 Devonte rded influenza virus vaccine, inactivated 05/24/14 Devonte rded influenza virus vaccine, inactivated 09/16/12 Devonte rded hepatitis B adult vaccine 2 02/12/22 Given SARS-CoV-2 (COVID-19) mRNA-1273 vaccine 08/08/21 R ecorded SARS-CoV-2 (COVID-19) mRNA-1273 vaccine 12/22/20 R ecorded SARS-CoV-2 (COVID-19) mRNA-1273 vaccine 11/24/20 R ecorded 1Result Comment: [facility]# [id number] 2Result Comment: [facility]# [id number] Medications atorvastatin 40 mg oral tablet 1 tablet = 40 mg, By Mouth, Daily at bedtime, # 30 tablet, 5 Refills, Maintenance, 01/25/22 13:39:00 EDT, Tablet, [facility] #[id number], Partial fill upon patient request if the [...] 5 Refills, Maintenance, 01/25/22 13:39:00 EDT, Tablet, [facility] #[id number],Partial fill upon patient request if the prescripti... Start Date: 01/25/22 Status: Ordered NuLYTELY with Flavor Packs oral powder for reconstitution 240 mL, By Mouth, Every 10 minutes, split prep method, take 1st half of prep evening before procedure, 2nd half 6 hrs prior to procedure., # 1 each, 0 Refills, Maintenance, 05/27/22 17:00:00 EDT, [facility]Powder, [facility] #[id number], test date .. Start Date: 05/27/22 Status: [...] Active Obese class II(Confirmed) Active Prediabetes(Confirmed) Active Schizo affective schizophrenia(Confirmed) Active Vital Signs Most recent to oldest [Reference Range]: 1 Height 182.2 cm (02/06/22 2:44 PM) Weight 123.8 kg (02/06/22 2:44 PM) Oxygen Saturation [94-100 %] 97 % (02/06/22 2:44 PM) Pulse Rate [55-90 bpm] 82 bpm (02/06/22 2:44 PM) Body Mass Index [18.5-24.99] 37.29 *>HHI* (02/06/22 2:44 PM) Blood Pressure [90-138/55-84 mm Hg] 123/ 83mm Hg (02/06/22 2:44 PM) Temperature [96.8-100.4 DegF] 98.2 DegF (02/06/22 2:44 PM) Mode of Delivery (Oxygen) Room air (02/06/22 2:44 PM) Blood pressure sites Arm, right (02/06/22 2:44 PM) Temperature Route Oral (02/06/22 2:44 PM) Weight Obtained Via Standing scale (02/06/22 2:44 PM) Social History Social History Type Response Smoking Status Never (less than 100 in lifetime) entered on: 11/07/21 Sex
--- OUTSIDE RECORDS SUMMARY | 2022-12-17 23:15 | XMS_ITS | Continuity of Care Document ---
Author Name Unknown Organization [facility] Adult Address [address] [place] [address]- Care Team Providers Care Air Conditioning Service Technician Name Role Phone Ines STATISTICAL ANALYST, Linda Cohen Primary Care Physician [phone] [facility]counter [facility] Date(s): 10/24/22 - 12/08/22 [facility] [address] [place] [address]- Attending Physician: Kaylee AMBROSE, Nelly Allergies, Adverse Reactions, Alerts No Known Allergies [...] vaccine 11/24/20 R ecorded 1Result Comment: [facility]# [id number] 2Result Comment: [facility]# [id number] 3Result Comment: [facility]# [id number] Medications atorvastatin 40 mg oral tablet 1 tablet = 40 mg, By Mouth, Daily at bedtime, # 30 tablet, 5 Refills, Maintenance, 08/13/22 16:56:00 EST, Tablet, [facility] #[id number], Partial fill upon patient request if the [...] 5 Refills, Maintenance, 09/12/22 12:34:00 EST, Tablet, [facility] #[id number], Partial fill upon patient request if the [...] 5 Refills, Maintenance, 07/29/22 8:57:00 EST, Tablet, [facility] #[id number], Partial fill upon patient request if the [...] 10/22/23 8:58:00 EST, 07/29/22 8:58:00 EST, Tablet, [facility] #[id number], Partial fill upon patient request if the prescr... Start Date: 07/29/22 Stop Date: 10/22/23 Status: Ordered NuLYTELY with Flavor Packs oral powder for reconstitution 240 mL, By Mouth, Every 10 minutes, split prep method, take 1st half of prep evening before procedure, 2nd half 6 hrs prior to procedure., # 1 each, 0 Refills, Maintenance, 05/27/22 17:00:00 EDT, Any, [facility] #[id number], test date 05/10... Start Date: 05/27/22 Status: Ordered omeprazole 20 mg oral enteric coated capsule 1 capsule = 20 mg, By Mouth, Every Friday, and Friday, # 13 capsule, 6 Refills, Maintenance, 09/27/22 8:56:00 EST, [facility] #[id number], Partial fill upon patient request if the [...] Team Personnel Name: Linda Chacon NP Position: [facility] PCO Associate Professional Member Role: PCP Address: Address: [address] [place] [address]
--- OUTSIDE RECORDS SUMMARY | 2022-12-17 23:15 | XMS_ITS | Continuity of Care Document ---
Author Name Unknown Organization [facility] Adult Address [address] [place] [address]- Care Team Providers Care Railroad Car Cleaner Name Role Phone Ines HAN, Linda Cohen Primary Care Physician [facility] Date(s): 02/14/22 - 03/16/[address] [address] Allergies, Adverse Reactions, Alerts No [...] mRNA-1273 vaccine 11/24/20 R ecorded 1Result Comment: [facility]# [id number] 2Result Comment: [facility]# [id number] 3Result Comment: [facility]# [id number] Medications atorvastatin 40 mg oral tablet 1 tablet = 40 mg, By Mouth, Daily at bedtime, # 30 tablet, 5 Refills, Maintenance, 01/25/22 13:39:00 EDT, Tablet, [facility] #[id number], Partial fill upon patient request if the [...] 5 Refills, Maintenance, 01/25/22 13:39:00 EDT, Tablet, [facility] #[id number],Partial fill upon patient request if the prescripti... Start Date: 01/25/22 Status: Ordered NuLYTELY with Flavor Packs oral powder for reconstitution 240 mL, By Mouth, Every 10 minutes, split prep method, take 1st half of prep evening before procedure, 2nd half 6 hrs prior to procedure., # 1 each, 0 Refills, Maintenance, 05/27/22 17:00:00 EDT, [facility]Pow[facility], [facility] #[id number], test date .. Start Date: 05/27/22 Status: [...]
--- OUTSIDE RECORDS SUMMARY | 2022-12-17 23:15 | XMS_ITS | Continuity of Care Document ---
Author Name Unknown Organization [facility] Adult Address [address] [place] [address]- Care Team Providers Care Radiology Receptionist Name Role Phone Ines HAN, Linda Cohen Primary Care Physician [phone] [facility] Date[facility]s): 02/26/22 - 03/28/[address] [address] Allergies, Adverse Reactions, Alerts No Known [...] R ecorded 1Result Comment: [facility]# [id number] 2Result Comment: [facility]# [id number] 3Result Comment: [facility]# [id number] Medications atorvastatin 40 mg oral tablet 1 tablet = 40 mg, By Mouth, Daily at bedtime, # 30 tablet, 5 Refills, Maintenance, 01/25/22 13:39:00 EDT, Tablet, [facility] #[id number], Partial fill upon patient request if the [...] 5 Refills, Maintenance, 01/25/22 13:39:00 EDT, Tablet, [facility] #[id number],Partial fill upon patient request if the prescripti... Start Date: 01/25/22 Status: Ordered NuLYTELY with Flavor Packs oral powder for reconstitution 240 mL, By Mouth, Every 10 minutes, split prep method, take 1st half of prep evening before procedure, 2nd half 6 hrs prior to procedure., # 1 each, 0 Refills, Maintenance, 05/27/22 17:00:00 EDT, RECPowder, [facility] #[id number], test date 05/10... Start Date: 05/27/22 Status: Ordered omeprazole 20 mg oral enteric coated capsule See Instructions, TAKE 1 CAPSULE BY MOUTH EVERY 12 HOURS, # 60 capsule, 2 Refills, Maintenance, 03/28/22 8:10:00 EDT, [facility] #[id number], Partial fill upon patient request if the [...]
--- OUTSIDE RECORDS SUMMARY | 2022-12-17 23:15 | XMS_ITS | Continuity of Care Document ---
Author Name Unknown Organization [facility] Adult Address [address] [place] [address]- Care Team Providers Care Plumbing Assembler Installer Name Role Phone Ines HAN, Linda Cohen Primary Care Physician [facility] Date(s): 02/12/22 - 02/19/[address] [address] Attending Physician: Not on Staff, Attending MD Allergies, Adverse Reactions, Alerts No Known [...] R ecorded 1Result Comment: [facility]# [id number] 2Result Comment: [facility]# [id number] 3Result Comment: [facility]# [id number] Medications atorvastatin 40 mg oral tablet 1 tablet = 40 mg, By Mouth, Daily at bedtime, # 30 tablet, 5 Refills, Maintenance, 01/25/22 13:39:00 EDT, Tablet, [facility] #[id number], Partial fill upon patient request if the [...] 5 Refills, Maintenance, 01/25/22 13:39:00 EDT, Tablet, [facility] #[id number],Partial fill upon patient request if the prescripti... Start Date: 01/25/22 Status: Ordered NuLYTELY with Flavor Packs oral powder for reconstitution 240 mL, By Mouth, Every 10 minutes, split prep method, take 1st half of prep evening before procedure, 2nd half 6 hrs prior to procedure., # 1 each, 0 Refills, Maintenance, 05/27/22 17:00:00 EDT, RECPowder, [facility] #[id number], test date .. Start Date: 05/27/22 Status: [...] Active Prediabetes(Confirmed) Active Schizo affective schizophrenia(Confirmed) Active Social History Social History Type Response Smoking Status Never (less than 100 in lifetime) entered on: 11/07/21 Sex
--- OUTSIDE RECORDS SUMMARY | 2022-12-17 23:15 | XMS_ITS | Continuity of Care Document ---
Author Name Unknown Organization [facility] Adult Address [address] [place] [address]- Care Team Providers Care Beverage Distiller Name Role Phone Ines HAN, Linda Cohen Primary Care Physician [phone] Encounter [facility] Date(s): 07/09/22 - 08/08/22 [facility] Adult [address] [place] [address]- Allergies, Adverse Reactions, Alerts No Known Allergies [...] mRNA-1273 vaccine 11/24/20 R ecorded 1Result Comment: [facility] [place]# [id number] 2Result Comment: [facility] [place] 2[facility]# [id number] 3Result Comment: [facility] [place] 2[facility]# [id number] Medications atorvastatin 40 mg oral tablet 1 tablet = 40 mg, By Mouth, Daily at bedtime, # 90 tablet, 3 Refills, Maintenance, 07/29/22 8:54:00EST, Tablet, [facility] #[id number], Partial fill upon patient request if the [...] 5 Refills, Maintenance, 07/29/22 8:57:00 EST, Tablet, [facility] #[id number], Partial fill upon patient request if the [...] 10/22/23 8:58:00 EST, 07/29/22 8:58:00 EST, Tablet, [facility] #[id number], Partial fill upon patient request if the prescr... Start Date: 07/29/22 Stop Date: 10/22/23 Status: Ordered naproxen 500 mg oral tablet 1 tablet = 500 mg, By Mouth, 2 times a day, PRN Pain , Moderate, for 14 days, with food, # 28 tablet, 0 Refills, Acute 08/12/22 9:03:00 EST, 07/29/22 9:03:00 EST, Tablet, [facility] #[id number],Partial fill upon patient request if the prescripti... Start Date: 07/29/22 Stop Date: 08/12/22 Status: Ordered NuLYTELY with Flavor Packs oral powder for reconstitution 240 mL, By Mouth, Every 10 minutes, split prep method, take 1st half of prep evening before procedure, 2nd half 6 hrs prior to procedure., # 1 each, 0 Refills, Maintenance, 05/27/22 17:00:00 EDT, [facility] #[id number], test date 05/10... Start Date: 05/27/22 Status: Ordered omeprazole 20 mg oral enteric coated capsule 1 capsule = 20 mg, By Mouth, Every Friday, and Friday, # 13 capsule, 2 Refills, Maintenance, 03/28/22 8:10:00 EDT, [facility] #[id number], Partial fill upon patient request if the [...] Associate Professional Member Role: PCP Address: Address: [address] [facility] [address] [place], [place] [address]
--- OUTSIDE RECORDS SUMMARY | 2022-12-17 23:15 | XMS_ITS | Continuity of Care Document ---
Author Name Unknown Organization [facility] Adult Address [address] [place] [address]- Care Team Providers Care Land Degradation Analyst Name Role Phone Ines HAN, Linda Cohen Primary Care Physician En[place] [id number] Date(s): 11/08/21 - 01/20/22 [facility] Adult [address] [place] [address]- Attending Physician: Linda Chacon NP Referring Physician: Nelly Page MD Allergies, Adverse Reactions, Alerts No Known Allergies Immunizations Given and Recorded Vaccine Date Status Refusal Reason SARS-CoV-2 (COVID-19) mRNA-1273 vaccine 08/08/21 R ecorded SARS-CoV-2 (COVID-19) mRNA-1273 vaccine 12/22/20 R ecorded SARS-CoV-2 (COVID-19) mRNA-1273 vaccine 11/24/20 R ecorded influenza virus vaccine, inactivated 06/03/20 Dev[facility] influenza virus vaccine, inactivated 05/24/14 [facility] influenza virus vaccine, inactivated 09/16/12 [facility] Medications atorvastatin 40 mg oral tablet TAKE 1 TABLET BY MOUTH AT BEDTIME Start Date: 11/07/21 Status: Ordered haloperidol 10 mg oral tablet TAKE 1 TABLET BY MOUTH AT BEDTIME FOR PSYCHOSIS Start Date: 11/07/21 Status: Ordered levothyroxine 0.112 mg oral tablet TAKE 1 TABLET BY MOUTH EVERY MORNING ON AN EMPTY STOMACH Start Date: 11/07/21 Status: Ordered omeprazole 20 mg oral enteric [...] Active Insomnia(Confirmed) Active Anxiety and depression(Confirmed) Active Schizo affective schizophrenia(Confirmed) Active Social History Social History Type Response Smoking Status Never (less than 100 in lifetime) entered on: 11/07/21 Sex
--- OUTSIDE RECORDS SUMMARY | 2022-12-17 23:15 | XMS_ITS | Continuity of Care Document ---
Author Name Unknown Organization [facility] Adult Address [address] [place] [address]- Care Team Providers Care Broadcast Operations Engineer Name Role Phone Linda Chacon NP Primary Care Physician [phone] [facility]counter [facility] Date(s): 07/29/22 - 08/05/22 [facility] Adult [address] [place] [address]- Attending Physician: Linda Chacon NP Allergies, Adverse [...] mRNA-1273 vaccine 11/24/20 R ecorded 1Result Comment: [facility]# [id number] 2Result Comment: [facility]# [id number] 3Result Comment: [facility]# [id number] Medications atorvastatin 40 mg oral tablet 1 tablet = 40 mg, By Mouth, Daily at bedtime, # 90 tablet, 3 Refills, Maintenance, 07/29/22 8:54:00EST, Tablet, [facility] | [facility] #[id number], Partial fill upon patient request if the [...] 5 Refills, Maintenance, 07/29/22 8:57:00 EST, Tablet, [facility] #[id number], Partial fill upon patient request if the [...] 10/22/23 8:58:00 EST, 07/29/22 8:58:00 EST, Tablet, [facility] #[id number], Partial fill upon patient request if the prescr... Start Date: 07/29/22 Stop Date: 10/22/23 Status: Ordered naproxen 500 mg oral tablet 1 tablet = 500 mg, By Mouth, 2 times a day, PRN Pain , Moderate, for 14 days, with food, # 28 tablet, 0 Refills, Acute 08/12/22 9:03:00 EST, 07/29/22 9:03:00 EST, Tablet, [facility] #[id number],Partial fill upon patient request if the prescripti... Start Date: 07/29/22 Stop Date: 08/12/22 Status: Ordered NuLYTELY with Flavor Packs oral powder for reconstitution 240 mL, By Mouth, Every 10 minutes, split prep method, take 1st half of prep evening before procedure, 2nd half 6 hrs prior to procedure., # 1 each, 0 Refills, Maintenance, 05/27/22 17:00:00 EDT, [facility] | [facility] #[id number], test date 05/10... Start Date: 05/27/22 Status: Ordered omeprazole 20 mg oral enteric coated capsule 1 capsule = 20 mg, By Mouth, Every Friday, and Friday, # 13 capsule, 2 Refills, Maintenance, 03/28/22 8:10:00 EDT, [facility] #[id number], Partial fill upon patient request if the [...] recent to oldest [Reference Range]: 1 Height 175 cm (07/29/22 8:27 AM) Weight 126.7 kg (07/29/22 8:27 AM) Oxygen Saturation [94-100 %] 98 % (07/29/22 8:27 AM) Pulse Rate [55-90 bpm] 89 bpm (07/29/22 8:27 AM) Body Mass Index [18.5-24.99 kg/m2] 41.37 kg/m2 *>HHI* (07/29/22 8:27 AM) Blood Pressure [90-138/55-84 mm Hg] 137/ 87mm Hg (07/29/22 8:27 AM) Blood pressure sites Arm, right (07/29/22 8:27 AM) Weight Obtained Via Standing scale (07/29/22 8:27 AM) Social History Social History Type Response Smoking Status Never (less than 100 in lifetime) entered on: 11/07/21 Sex Consult note * Adela Morales RN: PERFORM, MODIFY, SIGN, VERIFY Event Display: Consult Authored Date: [id number] Patient: ROSELIA KEBEDE Age: 47 years Sex: Male : 1975 Associated Diagnoses: None Author: Adela Morales RN Visit Information Referral Request: Non-Surgical. Referring Physician: Linda Chacon NP. Results Review Pain Location Intermittent low back pain How long have you had pain Ongoing 2 yrs Pain the result of an injury Fell 2 yrs ago Numbness present No Weakness present No Pain Assessment 0-10 Scale Worst pain in last 2 weeks4. Least pain in last 2 weeks3. Aggravating activities AM worse, can't run/jog Alleviating activities None specific Loss of bowel/bladder control Yes leaking a lot in the last year Previous Radiology Studies X-Ray Xray ordered Previous Treatments Physical Therapy Treatment effectivePT 2 yrs ago Previous back/neck surgery No Medications used for pain control Tylenol as needed Note * Trista Monique: PERFORM, SIGN, VERIFY Event Display: Patient Education/Instruction Authored Date: [facility] *[facility] Clinical Summary Name ROSELIA KEBEDE Age 47 Years 1975 PCP Ines HAN, Linda Cohen [id number] Visit Date 07/29/2022 07:45:00 Additional Instructions: Scheduled Appointments?? Future Appointments ?*[facility] ?Phone:??--?Fax:??-- ?Appt. Date:??08/12/2022?9:00 AM ?Scheduled Provider:??[facility] Clinical Follow-Up Instructions ?? Diagnosis Anxiety disorder, unspecified; Bipolar disorder, unspecified; Unspecified psychosis not due to a substance or known physiological condition; Dorsalgia, unspecified; Unspecified injury of lower back, initial encounter; Gastro- esophageal reflux disease without esophagitis; Anemia, unspecified; Hyperli pidemia, unspecified; Insomnia, unspecified; Schizoaffective disorder, unspecified Medications: Please continue your medications until treatment is completed or stopped by your provider. Discuss any questions related to medications with your provider. New Medications [id number], [address] [place] [phone], [phone] Atorvastatin (atorvastatin 40 mg oral tablet) 1 tab(s) Oral Daily at Bedtime. Refills: 3. Next Dose: Levothyroxine (levothyroxine 0.112 mg oral tablet) 1 tab(s) Oral Daily in the morning. 1 TABLET BY MOUTH DAILY IN THE MORNING ON AN EMPTY STOMACH. Refills: 5. Next Dose: Naproxen (naproxen 500 mg oral tablet) 1 tab(s) Oral twice a day as needed Pain , Moderate for 14 Days. with food. Refills: 0. Next Dose: Medications to Continue Taking That Have Changed [facility] #[id number], [address] [place] [phone], [phone] - Melatonin (Melatonin 3 mg oral tablet) 1 tab(s) Oral Daily at Bedtime for 90 Days. TAKE 1 TABLET BY MOUTH AT BEDTIME. Refills: 4. Next Dose: These medications were not printed or sent to your pharmacy - Omeprazole (omeprazole 20 mg oral enteric coated capsule) 1 capsule Oral every Friday, and Friday for 30 Days. Refills: 2. Next Dose: - Quetiapine (QUEtiapine 300 mg oral tablet) 1 tab(s) Oral Daily at Bedtime. Next Dose: - Quetiapine (QUEtiapine 300 mg oral tablet) TAKE 1 TABLET BY MOUTH AT BEDTIME. Next Dose: Medications to Continue with No Changes These medications were not printed or sent to your pharmacy Ferrous Sulfate (ferrous sulfate 325 mg oral tablet) 1 tab(s) Oral Daily. Next Dose: Haloperidol (haloperidol 10 mg oral tablet) TAKE 1 TABLET BY MOUTH AT BEDTIME FOR PSYCHOSIS. Next Dose: [place] (lithium 450 mg oral tablet, extended release) TAKE 2 TABLETS BY MOUTH TWICE DAILY. Next Dose: Multivitamin With Minerals (Centrum Adults oral tablet) Oral Daily. Next Dose: PEG Electrolyte Solution (NuLYTELY with Flavor Packs oral powder for reconstitution) 240 MilliliterOral every 10 minutes. split prep method, take 1st half of prep evening before procedure, 2nd half 6 hrs prior to procedure.. Refills: 0. Next Dose: Allergy Info:?? NKA Medications Given This Visit Future Orders ?Lumbar Spine 2 or 3 Views? Order Date:07/29/22?- Complete on or after?07/29/22 Vital Signs Height 175 cm Weight 126.7 kg BMI 41.37 kg/m2 Blood Pressure 137 mm Hg/87 mm Hg Temperature Pulse Rate 89 bpm Respiratory Rate 02 Sat Mode of Delivery 98 %/ You can now view a summary of your hospital visit from the comfort of your home through a free online portal called [employer]. [employer] is a website that allows you to securely view your medical information including discharge summary, medications and follow-up visits. ??You can alsosend a secure electronic message to your doctor???s office to request appointments, renew medications or just ask a question. You can enroll at [email or web address] or register during your next office visit. Disclaimer:?? The information provided is of a general nature and is intended to be used in conjunction with the recommendations and advice of your health care practitioner. ??Every effort has been made to ensure that the information provided is accurate and complete at the time it is provided to you however, as your needs change, or, as new ??information becomes available, different or additional instructions may be required. If you have questions, please consult with your primary care provider or pharmacist, as appropriate. ??This information is not intended to serve as substitution for assessment and evaluation by a qualified health care provider. If you do not have a primary care provider, you may find a [facility] provider by calling [facility] at [phone]. For information about the plan of care including goals and instructions for your diagnosis, please see the patient education orders section of this document. Patient Education Materials?? The content of this educational material or handout may have been modified, supplemented, or adapted from its original content and format to support your individualized medical care. Patient Care team information Care Team Personnel Name: Linda Chacon NP Position: S PCO Associate Professional Member Role: PCP Address: Address: [address] [place] [address]- [place]"
--- OUTSIDE RECORDS SUMMARY | 2022-12-17 23:15 | XMS_ITS | Continuity of Care Document ---
Author Name Unknown Organization [facility] Adult Address [address] [place] [address]- Care Team Providers Care Airplane Pilot Supervisor Name Role Phone Ines HAN, Linda Cohen Primary Care Physician [phone] [facility]counter [facility] Date(s): 02/27/22 - 03/29/[address] [address] Allergies, Adverse Reactions, Alerts No Known Allergies [...] mRNA-1273 vaccine 11/24/20 R ecorded 1Result Comment: [facility]# [id number] 2Result Comment: [facility]# [id number] 3Result Comment: [facility]# [id number] Medications atorvastatin 40 mg oral tablet 1 tablet = 40 mg, By Mouth, Daily at bedtime, # 30 tablet, 5 Refills, Maintenance, 01/25/22 13:39:00 EDT, Tablet, [email or web address] #[id number], Partial fill upon patient request if the [...] 5 Refills, Maintenance, 01/25/22 13:39:00 EDT, Tablet, [email or web address] #[id number],Partial fill upon patient request if the prescripti... Start Date: 01/25/22 Status: Ordered NuLYTELY with Flavor Packs oral powder for reconstitution 240 mL, By Mouth, Every 10 minutes, split prep method, take 1st half of prep evening before procedure, 2nd half 6 hrs prior to procedure., # 1 each, 0 Refills, Maintenance, 05/27/22 17:00:00 EDT, [facility], [facility] #[id number], test date 05/10... Start Date: 05/27/22 Status: Ordered omeprazole 20 mg oral enteric coated capsule See Instructions, TAKE 1 CAPSULE BY MOUTH EVERY 12 HOURS, # 60 capsule, 2 Refills, Maintenance, 03/28/22 8:10:00 EDT, [facility] #[id number], Partial fill upon patient request if the [...]
--- OUTSIDE RECORDS SUMMARY | 2022-12-17 23:15 | XMS_ITS | Continuity of Care Document ---
Author Name Unknown Organization [facility] Adult Address [address] [place] [address]- Care Team Providers Care Radio Rigger Name Role Phone Ines SALES MERCHANDISE ASSOCIATE, Linda Cohen Primary Care Physician [facility]counter [facility] Date(s): 10/23/22 - 11/22/[address] [address]- Allergies, Adverse Reactions, Alerts No Known Allergies [...] vaccine 11/24/20 R ecorded 1Result Comment: [facility]# [id number] 2Result Comment: [facility]# [id number] 3Result Comment: [facility]# [id number] Medications atorvastatin 40 mg oral tablet 1 tablet = 40 mg, By Mouth, Daily at bedtime, # 30 tablet, 5 Refills, Maintenance, 08/13/22 16:56:00 EST, Tablet, [facility] #[id number], Partial fill upon patient request if the [...] 5 Refills, Maintenance, 09/12/22 12:34:00 EST, Tablet, [facility] #[id number], Partial fill upon patient request if the [...] tablet, 5 Refills, Maintenance, 07/29/22 8:57:00 EST, [facility] #[id number], Partial fill upon patient request if the [...] 10/22/23 8:58:00 EST, 07/29/22 8:58:00 EST, Tablet, [facility] #[id number], Partial fill upon patient request if the prescr... Start Date: 07/29/22 Stop Date: 10/22/23 Status: Ordered NuLYTELY with Flavor Packs oral powder for reconstitution 240 mL, By Mouth, Every 10 minutes, split prep method, take 1st half of prep evening before procedure, 2nd half 6 hrs prior to procedure., # 1 each, 0 Refills, Maintenance, 05/27/22 17:00:00 EDT, [facility], [facility] #[id number], test date 05/10... Start Date: 05/27/22 Status: Ordered omeprazole 20 mg oral enteric coated capsule 1 capsule = 20 mg, By Mouth, Every Friday, and Friday, # 13 capsule, 6 Refills, Maintenance, 09/27/22 8:56:00 EST, [facility] #[id number], Partial fill upon patient request if the [...] Team Personnel Name: Linda Chacon NP Position: [facility] PCO Associate Professional Member Role: PCP Address: Address: [address] [place] [phone]
--- OUTSIDE RECORDS SUMMARY | 2022-12-17 23:15 | XMS_ITS | Continuity of Care Document ---
Author Name Unknown Organization [facility] Adult Address [address] [place] [address]- Care Team Providers Care Can Runner Name Role Phone Linda Chacon NP Primary Care Physician [phone] Encounter [facility] Date(s): 07/10/22 - 07/17/22 [facility] Adult [address] [place] [address]- Encounter Diagnosis Schizoaffective disorder(Discharge Diagnosis) - 07/10/22 Anxiety and depression(Discharge Diagnosis) - 07/10/22 Psychosis(Discharge Diagnosis) - 07/10/22 Attending Physician: Not on Staff, Attending MD [...] vaccine 11/24/20 R ecorded 1Result Comment: [facility]# [id number] 2Result Comment: [facility]# [id number] 3Result Comment: [facility]# [id number] Medications atorvastatin 40 mg oral tablet 1 tablet = 40 mg, By Mouth, Daily at bedtime, # 30 tablet, 5 Refills, Maintenance, 01/25/22 13:39:00 EDT, Tablet, [facility] #[id number], Partial fill upon patient request if the [...] 5 Refills, Maintenance, 01/25/22 13:39:00 EDT, Tablet, [facility] #[id number],Partial fill upon patient request if the prescripti... Start Date: 01/25/22 Status: Ordered NuLYTELY with Flavor Packs oral powder for reconstitution 240 mL, By Mouth, Every 10 minutes, split prep method, take 1st half of prep evening before procedure, 2nd half 6 hrs prior to procedure., # 1 each, 0 Refills, Maintenance, 05/27/22 17:00:00 EDT, RECPowder, [facility] #[id number], test date 05/10... Start Date: 05/27/22 Status: Ordered omeprazole 20 mg oral enteric coated capsule See Instructions, TAKE 1 CAPSULE BY MOUTH EVERY other day, # 60 capsule, 2 Refills, Maintenance, 03/28/22 8:10:00 EDT, [facility] #[id number], Partial fill upon patient request if the [...] Psychosis Confirmed Active Schizoaffective disorder Confirmed Active Diagnosis Diagnosis Type Effective Dates Health Status Clinical Service Informant Schizoaffective disorder Discharge Diagnosis 07/10/22 Anxiety and depression Discharge Diagnosis 07/10/22 Psychosis Discharge Diagnosis 07/10/22 Vital Signs Most recent to oldest [Reference Range]: 1 2 Height 182.2 cm (07/10/22 11:15 AM) 182.2 cm (07/10/22 11:07 AM) Weight 121.5 kg (07/10/22 11:07 AM) Oxygen Saturation [94-100 %] 97 % (07/10/22 11:07 AM) Pulse Rate [55-90 bpm] 88 bpm (07/10/22 11:07 AM) Body Mass Index [18.5-24.99 kg/m2] 36.6 kg/m2 *>HHI* (07/10/22 11:07 AM) Blood Pressure [90-138/55-84 mm Hg] 146/ 91mm Hg *H* (07/10/22 11:15 AM) 151/79mm Hg *H* (07/10/22 11:07 AM) Blood pressure sites Arm, left (07/10/22 11:15 AM) Arm, left (07/10/22 11:07 AM) Weight Obtained Via Standing scale (07/10/22 11:07 AM) Social History Social History Type Response Smoking Status Never (less than 100 in lifetime) entered on: 11/07/21 Sex Note * Libby Ortiz: PERFORM, SIGN, VERIFY Event Display: Patient Education/Instruction Authored Date: [id number] [facility] *[facility] Clinical Summary Name ROSELIA KEBEDE Age 47 Years 1975 PCP Ines HAN, Linda Cohen [phone] Visit Date 07/10/2022 10:40:00 Additional Instructions: Scheduled Appointments?? Future Appointments ?*[facility] ?Phone:??--?Fax:??-- ?Appt. Date:??08/12/2022?9:00 AM ?Scheduled Provider:??[facility] ?*[facility] ?[address],??[address] ?Phone:??--?Fax:??-- ?Appt. Date:??08/21/2022?3:50 PM ?Scheduled Provider:??Ines HAN, Linda Cohen Follow-Up Instructions ?? Diagnosis Unspecified psychosis not due to a substance or known physiological condition; Anxiety disorder, unspecified; Schizoaffective disorder, unspecified Medications: Please continue your medications until treatment is completed or stopped by your provider. Discuss any questions related to medications with your provider. Medications to Continue Taking That Have Changed These medications were not printed or sent to your pharmacy - Omeprazole (omeprazole 20 mg oral enteric coated capsule) TAKE 1 CAPSULE BY MOUTH EVERY other day. Refills: 2. Next Dose: Medications to Continue with No Changes These medications were not printed or sent to your pharmacy Atorvastatin (atorvastatin 40 mg oral tablet) 1 tab(s) Oral Daily at Bedtime. Refills: 5. Next Dose: Haloperidol (haloperidol 10 mg oral tablet) TAKE 1 TABLET BY MOUTH AT BEDTIME FOR PSYCHOSIS. Next Dose: Levothyroxine (levothyroxine 0.112 mg oral tablet) 1 tab(s) Oral Daily in the morning. 1 TABLET BY MOUTH DAILY IN THE MORNING ON AN EMPTY STOMACH. Refills: 5. Next Dose: PEG Electrolyte Solution (NuLYTELY with Flavor Packs oral powder for reconstitution) 240 MilliliterOral every 10 minutes. split prep method, take 1st half of prep evening before procedure, 2nd half 6 hrs prior to procedure.. Refills: 0. Next Dose: Quetiapine (QUEtiapine 200 mg oral tablet) TAKE 1 TABLET BY MOUTH AT BEDTIME FOR PSYCHOSIS OR MOOD. Next Dose: Allergy Info:?? NKA Medications Given This Visit Future Orders ?No future orders Vital Signs Height 182.2 cm Weight 121.5 kg BMI 36.6 kg/m2 Blood Pressure 146 mm Hg/91 mm Hg Temperature Pulse Rate 88 bpm Respiratory Rate 02 Sat Mode of Delivery 97 %/ You can now view a summary of your hospital visit from the comfort of your home through a free online portal called [employer]. [employer] is a website that allows you to securely view your medical information including discharge summary, medications and follow-up visits. ??You can alsosend a secure electronic message to your doctor???s office to request appointments, renew medications or just ask a question. You can enroll at [email or web address] or register during your next office visit. [...] primary care provider, you may find a [facility] provider by calling [facility] at [phone]. For information about the plan of care [...] Professional Member Role: PCP Address: Address: [address]rd [place] [address]-
--- OUTSIDE RECORDS SUMMARY | 2022-12-17 23:15 | XMS_ITS | Continuity of Care Document ---
Author Name Unknown Organization [facility] Adult Address [address] [place] [address]- Care Team Providers Care Compensation Associate Name Role Phone Linda Chacon NP Primary Care Physician Encounter [facility] Date(s): 02/08/22 - 03/10/22 [facility] Adult [address] [place] [address]- Allergies, Adverse Reactions, Alerts No Known Allergies [...] mRNA-1273 vaccine 11/24/20 R ecorded 1Result Comment: [facility]# [id number] 2Result Comment: [facility]# [id number] 3Result Comment: [facility]# [id number] Medications atorvastatin 40 mg oral tablet 1 tablet = 40 mg, By Mouth, Daily at bedtime, # 30 tablet, 5 Refills, Maintenance, 01/25/22 13:39:00 EDT, Tablet, [facility] #[id number], Partial fill upon patient request if the [...] 5 Refills, Maintenance, 01/25/22 13:39:00 EDT, Tablet, [facility] #[id number],Partial fill upon patient request if the prescripti... Start Date: 01/25/22 Status: Ordered NuLYTELY with Flavor Packs oral powder for reconstitution 240 mL, By Mouth, Every 10 minutes, split prep method, take 1st half of prep evening before procedure, 2nd half 6 hrs prior to procedure., # 1 each, 0 Refills, Maintenance, 05/27/22 17:00:00 EDT, RECPowder, [facility] #[id number], test date .. Start Date: 05/27/22 Status: [...]
--- OUTSIDE RECORDS SUMMARY | 2022-12-17 23:15 | XMS_ITS | Continuity of Care Document ---
Author Name Unknown Organization [facility] Adult Address [address] [place] [address]- Care Team Providers Care Optimization Analyst Name Role Phone Ines HAN, Linda Cohen Primary Care Physician Encounter [facility] Date(s): 10/25/21 - 11/24/21 [facility] Adult [address] [place] [address]- Allergies, Adverse Reactions, Alerts No Known Allergies [...]
--- OUTSIDE RECORDS SUMMARY | 2022-12-17 23:15 | XMS_ITS | Continuity of Care Document ---
Author Name Unknown Organization [facility] Adult Address [address] [place] [address]- Care Team Providers Care Sales Leader Name Role Phone Ines HAN, Linda Cohen Primary Care Physician Encounter [facility] Date(s): 08/09/22 - 09/08/22 [facility] Adult [address] [place] [address]- Allergies, Adverse Reactions, Alerts No Known Allergies [...] mRNA-1273 vaccine 11/24/20 R ecorded 1Result Comment: [facility]# [id number] 2Result Comment: [facility]# [id number] 3Result Comment: [facility]# [id number] Medications atorvastatin 40 mg oral tablet 1 tablet = 40 mg, By Mouth, Daily at bedtime, # 30 tablet, 5 Refills, Maintenance, 08/13/22 16:56:00 EST, Tablet, [facility] #[id number], Partial fill upon patient request if the [...] 5 Refills, Maintenance, 07/29/22 8:57:00 EST, Tablet, [facility] #[id number], Partial fill upon patient request if the [...] 10/22/23 8:58:00 EST, 07/29/22 8:58:00 EST, Tablet, [facility] #[id number], Partial fill upon patient request if the prescr... Start Date: 07/29/22 Stop Date: 10/22/23 Status: Ordered NuLYTELY with Flavor Packs oral powder for reconstitution 240 mL, By Mouth, Every 10 minutes, split prep method, take 1st half of prep evening before procedure, 2nd half 6 hrs prior to procedure., # 1 each, 0 Refills, Maintenance, 05/27/22 17:00:00 EDT, [facility] #[id number], test date .. Start Date: 05/27/22 Status: Ordered omeprazole 20 mg oral enteric coated capsule 1 capsule = 20 mg, By Mouth, Every Friday, and Friday, # 13 capsule, 2 Refills, Maintenance, 03/28/22 8:10:00 EDT, [facility] #[id number], Partial fill upon patient request if the [...] Professional Member Role: PCP Address: Address: [address] [facility] [address] [place], [place] [address]
--- OUTSIDE RECORDS SUMMARY | 2022-12-17 23:15 | XMS_ITS | Continuity of Care Document ---
Author Name Unknown Organization [facility] Adult Address [address] [place] [address]- Care Team Providers Care Provider Scribe Name Role Phone Ines HAN, Lnida Cohen Primary Care Physician Encounter [facility] Date(s): 02/11/22 - 03/13/[address] [address] Allergies, Adverse Reactions, Alerts [...] Comment: [facility]# [id number] 2Result Comment: [facility]# [id number] 3Result Comment: [facility]# [id number] Medications atorvastatin 40 mg oral tablet 1 tablet = 40 mg, By Mouth, Daily at bedtime, # 30 tablet, 5 Refills, Maintenance, 01/25/22 13:39:00 EDT, Tablet, [facility] #[id number], Partial fill upon patient request if the [...] 5 Refills, Maintenance, 01/25/22 13:39:00 EDT, Tablet, [facility] #[id number],Partial fill upon patient request if the prescripti... Start Date: 01/25/22 Status: Ordered NuLYTELY with Flavor Packs oral powder for reconstitution 240 mL, By Mouth, Every 10 minutes, split prep method, take 1st half of prep evening before procedure, 2nd half 6 hrs prior to procedure., # 1 each, 0 Refills, Maintenance, 05/27/22 17:00:00 EDT, RECPowder, [facility] #[id number], test date .. Start Date: 05/27/22 Status: [...]
--- OUTSIDE RECORDS SUMMARY | 2022-12-17 23:15 | XMS_ITS | Continuity of Care Document ---
Author Name Unknown Organization [facility] Adult Address [address] [place] [address]- Care Team Providers Care Bench Carpenter Name Role Phone Linda Chacon NP Primary Care Physician Encounter [facility] Date(s): 11/07/21 - 11/14/21 [facility] Adult [address] [place] [address]- Encounter Diagnosis Insomnia(Discharge Diagnosis) - 11/07/21 Attending Physician: Linda Chacon NP Allergies, Adverse [...] and depression(Confirmed) Active Schizo affective schizophrenia(Confirmed) Active Diagnosis Diagnosis Type Effective Dates Health Status Clini brandee Service Informant Insomnia Discharge Diagnosis 11/07/21 Social History Social History Type Response Smoking Status Never (less than 100 in lifetime) entered on: 11/07/21 Sex
--- OUTSIDE RECORDS SUMMARY | 2022-12-17 23:15 | XMS_ITS | Continuity of Care Document ---
Author Name Unknown Organization [facility] Adult Address [address] [place] [address]- Care Team Providers Care Gang Head Saw Operator Name Role Phone Ines HAN, Linda Cohen Primary Care Physician Encounter [facility] Date(s): 03/12/22 - 03/19/[address] [address] Attending Physician: Not on Staff, Attending MD [...] vaccine 11/24/20 R ecorded 1Result Comment: [facility]# [id number] 2Result Comment: [facility]# [id number] 3Result Comment: [facility]# [id number] Medications atorvastatin 40 mg oral tablet 1 tablet = 40 mg, By Mouth, Daily at bedtime, # 30 tablet, 5 Refills, Maintenance, 01/25/22 13:39:00 EDT, Tablet, [facility] #[id number], Partial fill upon patient request if the [...] 5 Refills, Maintenance, 01/25/22 13:39:00 EDT, Tablet, [facility] #[id number],Partial fill upon patient request if the prescripti... Start Date: 01/25/22 Status: Ordered NuLYTELY with Flavor Packs oral powder for reconstitution 240 mL, By Mouth, Every 10 minutes, split prep method, take 1st half of prep evening before procedure, 2nd half 6 hrs prior to procedure., # 1 each, 0 Refills, Maintenance, 05/27/22 17:00:00 EDT, RECPowder, [facility] #[id number], test date .. Start Date: 05/27/22 Status: [...]
--- OUTSIDE RECORDS SUMMARY | 2022-12-17 23:15 | XMS_ITS | Continuity of Care Document ---
Author Name Unknown Organization [facility] Adult Address [address] [place] [address]- Care Team Providers Care Venetian Blind Maker Name Role Phone Ines HAN, Linda Cohen Primary Care Physician Encounter [facility] Date(s): 02/19/22 - 02/26/22 [facility] Adult [address] [place] [address]- Attending Physician: Conner Newberry MD Allergies, Adverse Reactions, Alerts No Known [...] R ecorded 1Result Comment: [facility]# [id number] 2Result Comment: [facility]# [id number] 3Result Comment: [facility]# [id number] Medications atorvastatin 40 mg oral tablet 1 tablet = 40 mg, By Mouth, Daily at bedtime, # 30 tablet, 5 Refills, Maintenance, 01/25/22 13:39:00 EDT, Tablet, [facility] #[id number], Partial fill upon patient request if the [...] 5 Refills, Maintenance, 01/25/22 13:39:00 EDT, Tablet, [facility] #[id number],Partial fill upon patient request if the prescripti... Start Date: 01/25/22 Status: Ordered NuLYTELY with Flavor Packs oral powder for reconstitution 240 mL, By Mouth, Every 10 minutes, split prep method, take 1st half of prep evening before procedure, 2nd half 6 hrs prior to procedure., # 1 each, 0 Refills, Maintenance, 05/27/22 17:00:00 EDT, RECPowder, [facility] #[id number], test date .. Start Date: 05/27/22 Status: [...]
--- OUTSIDE RECORDS SUMMARY | 2022-12-17 23:15 | XMS_ITS | Continuity of Care Document ---
Author Name Unknown Organization [facility] Adult Address [address] [place] [address]- Care Team Providers Care Lithopone Mill Worker Name Role Phone Ines SHOW CARD WRITER, Linda Cohen Primary Care Physician Encounter [facility] Date(s): 08/12/22 - 08/19/[address] [address]- Attending Physician: Not on Staff, Attending MD [...] vaccine 11/24/20 R ecorded 1Result Comment: [facility]# [id number] 2Result Comment: [facility]# [id number] 3Result Comment: [facility]# [id number] Medications atorvastatin 40 mg oral tablet 1 tablet = 40 mg, By Mouth, Daily at bedtime, # 30 tablet, 5 Refills, Maintenance, 08/13/22 16:56:00 EST, Tablet, [facility] #[id number], Partial fill upon patient request if the [...] 5 Refills, Maintenance, 07/29/22 8:57:00 EST, Tablet, [facility] #[id number], Partial fill upon patient request if the [...] 10/22/23 8:58:00 EST, 07/29/22 8:58:00 EST, Tablet, [facility] #[id number], Partial fill upon patient request if the prescr... Start Date: 07/29/22 Stop Date: 10/22/23 Status: Ordered NuLYTELY with Flavor Packs oral powder for reconstitution 240 mL, By Mouth, Every 10 minutes, split prep method, take 1st half of prep evening before procedure, 2nd half 6 hrs prior to procedure., # 1 each, 0 Refills, Maintenance, 05/27/22 17:00:00 EDT, [facility] #[id number], test date 05/10... Start Date: 05/27/22 Status: Ordered omeprazole 20 mg oral enteric coated capsule 1 capsule = 20 mg, By Mouth, Every Friday, and Friday, # 13 capsule, 2 Refills, Maintenance, 03/28/22 8:10:00 EDT, [facility] #[id number], Partial fill upon patient request if the [...] Professional Member Role: PCP Address: Address: [address] [facility] [address] [place], [place] [address]
--- OUTSIDE RECORDS SUMMARY | 2022-12-17 23:15 | XMS_ITS | Continuity of Care Document ---
Author Name Unknown Organization [facility] ter Address [address] [place] [address]- Care Team Providers Care Cook Ice Cream Name Role Phone Ines HAN, Linda Cohen Primary Care Physician Encounter [facility] Date(s): 10/02/22 - 10/03/[address] [address]- Encounter Diagnosis Schizoaffective disorder(Final) - 10/02/22 Visual hallucinations(Final) - 10/02/22 Auditory hallucinations(Final) - 10/02/22 Discharge Disposition: Transfer to Psych Facility Attending [...] mRNA-1273 vaccine 11/24/20 R ecorded 1Result Comment: [facility]# [id number] 2Result Comment: [facility]# [id number] 3Result Comment: [facility]# [id number] Medications atorvastatin 40 mg oral tablet 1 tablet = 40 mg, By Mouth, Daily at bedtime, # 30 tablet, 5 Refills, Maintenance, 08/13/22 16:56:00 EST, Tablet, [facility] #[id number], Partial fill upon patient request if the [...] 5 Refills, Maintenance, 09/12/22 12:34:00 EST, Tablet, [facility] #[id number], Partial fill upon patient request if the [...] 5 Refills, Maintenance, 07/29/22 8:57:00 EST, Tablet, [facility] #[id number], Partial fill upon patient request if the [...] 10/22/23 8:58:00 EST, 07/29/22 8:58:00 EST, Tablet, [facility] #[id number], Partial fill upon patient request if the prescr... Start Date: 07/29/22 Stop Date: 10/22/23 Status: Ordered NuLYTELY with Flavor Packs oral powder for reconstitution 240 mL, By Mouth, Every 10 minutes, split prep method, take 1st half of prep evening before procedure, 2nd half 6 hrs prior to procedure., # 1 each, 0 Refills, Maintenance, 05/27/22 17:00:00 EDT, [facility], [facility] #[id number], test date .. Start Date: 05/27/22 Status: Ordered omeprazole 20 mg oral enteric coated capsule 1 capsule = 20 mg, By Mouth, Every Friday, and Friday, # 13 capsule, 6 Refills, Maintenance, 09/27/22 8:56:00 EST, [facility] #[id number], Partial fill upon patient request if the [...] 1 2 3 Oxygen Saturation [94-100 %] 98 % (10/03/22 10:28 AM) 98 % (10/03/22 5:40 AM) 94 % (10/02/22 10:33 PM) Pulse Rate [55-90 bpm] 96 bpm *H* (10/03/22 10:28 AM) 100 bpm *H* (10/03/22 5:40 AM) 90 bpm (10/02/22 10:33 PM) Blood Pressure [90-138/55-84 mm Hg] 138/84mm Hg (10/03/22 10:28 AM) 140/95mm Hg *H* (10/03/22 5:40 AM) 166/84mm Hg *H* (10/02/22 10:33 PM) Respiratory Rate [16-30 br/min] 18 br/min (10/03/22 10:28 AM) 20 br/min (10/03/22 5:40 AM) 16 br/min (10/02/22 10:33 PM) Temperature [96.8-100.4 DegF] 98.6 DegF (10/03/22 10:28 AM) 94 DegF *L* (10/03/22 5:40 AM) 99.3 DegF (10/02/22 10:33 PM) Mode of Delivery (Oxygen) Room air (10/03/22 10:28 AM) Room air (10/03/22 5:40 AM) Room air (10/02/22 10:33 PM) Blood pressure sites Arm, right (10/03/22 10:28 AM) Arm, left (10/03/22 5:40 AM) Arm, right (10/02/22 10:33 PM) Temperature Route Oral (10/03/22 10:28 AM) Oral (10/03/22 5:40 AM) Oral (10/02/22 10:33 PM) Social History Social History Type Response Smoking Status Never (less than 100 in lifetime) entered on: 11/07/21 Sex Hospital Progress note * Event Display: Progress Note Hospital Authored Date: Patient Care team information Care Team Personnel Name: Ines HAN, Linda Cohen Position: [facility] PCO Associate Professional Member Role: PCP Address: Address: [address] [facility] 3rd [place] [address]- Name: *[facility], ED Attending Position: [facility] ED Attendings Patient Name: Tiffanie SCHREIBER, Fabián Position: [facility] ED RN W/OE and Tasks Member Role: Patient Care Provider Name: Latha AMBROSE, Meredith Rojo Position: [facility] ED Medicine MD Member Role: Admitting Physician Address: Address: [address] [place] [address]-
--- OUTSIDE RECORDS SUMMARY | 2022-12-17 23:15 | XMS_ITS | Continuity of Care Document ---
Author Name Unknown Organization [facility] Adult Address [address] [place] [address]- Care Team Providers Care Shirt Sorter Name Role Phone Ines HAN, Linda Cohen Primary Care Physician Encounter [facility] Date(s): 02/26/22 - 03/28/[address] [address] Allergies, Adverse Reactions, Alerts No Known Allergies [...] vaccine 11/24/20 R ecorded 1Result Comment: [facility]# [id number] 2Result Comment: [facility]# [id number] 3Result Comment: [facility]# [id number] Medications atorvastatin 40 mg oral tablet 1 tablet = 40 mg, By Mouth, Daily at bedtime, # 30 tablet, 5 Refills, Maintenance, 01/25/22 13:39:00 EDT, Tablet, [facility] #[id number], Partial fill upon patient request if the [...] 5 Refills, Maintenance, 01/25/22 13:39:00 EDT, Tablet, [facility] #[id number],Partial fill upon patient request if the prescripti... Start Date: 01/25/22 Status: Ordered NuLYTELY with Flavor Packs oral powder for reconstitution 240 mL, By Mouth, Every 10 minutes, split prep method, take 1st half of prep evening before procedure, 2nd half 6 hrs prior to procedure., # 1 each, 0 Refills, Maintenance, 05/27/22 17:00:00 EDT, [facility], [facility] #[id number], test date 05/10... Start Date: 05/27/22 Status: Ordered omeprazole 20 mg oral enteric coated capsule See Instructions, TAKE 1 CAPSULE BY MOUTH EVERY 12 HOURS, # 60 capsule, 2 Refills, Maintenance, 03/28/22 8:10:00 EDT, [facility] #[id number], Partial fill upon patient request if the [...]
--- OUTSIDE RECORDS SUMMARY | 2022-12-17 23:15 | XMS_ITS | Continuity of Care Document ---
Author Name Unknown Organization [facility] Address [address] [place] [address]- Care Team Providers Care Blacking Machine Operator Name Role Phone Ines ACADEMIC GUIDANCE SPECIALIST, Linda Cohen Primary Care Physician Encounter [facility] Date(s): 10/10/22 - 11/22/22 [facility] [address] [place] [id number] Attending Physician: Kaylee AMBROSE, Nelly Allergies, Adverse [...] mRNA-1273 vaccine 11/24/20 R ecorded 1Result Comment: [facility]# [id number] 2Result Comment: [facility]# [id number] 3Result Comment: [facility]# [id number] Medications atorvastatin 40 mg oral tablet 1 tablet = 40 mg, By Mouth, Daily at bedtime, # 30 tablet, 5 Refills, Maintenance, 08/13/22 16:56:00 EST, Tablet, [facility] #[id number], Partial fill upon patient request if the [...] 5 Refills, Maintenance, 09/12/22 12:34:00 EST, Tablet, [facility] #[id number], Partial fill upon patient request if the [...] 5 Refills, Maintenance, 07/29/22 8:57:00 EST, Tablet, [facility] #[id number], Partial fill upon patient request if the [...] 10/22/23 8:58:00 EST, 07/29/22 8:58:00 EST, Tablet, [facility][id number], Partial fill upon patient request if the prescr... Start Date: 07/29/22 Stop Date: 10/22/23 Status: Ordered NuLYTELY with Flavor Packs oral powder for reconstitution 240 mL, By Mouth, Every 10 minutes, split prep method, take 1st half of prep evening before procedure, 2nd half 6 hrs prior to procedure., # 1 each, 0 Refills, Maintenance, 05/27/22 17:00:00 EDT, Any, [facility] #[id number], test date 05/10... Start Date: 05/27/22 Status: Ordered omeprazole 20 mg oral enteric coated capsule 1 capsule = 20 mg, By Mouth, Every Friday, and Friday, # 13 capsule, 6 Refills, Maintenance, 09/27/22 8:56:00 EST, [facility] #[id number], Partial fill upon patient request if the [...] Team Personnel Name: Linda Chacon NP Position: [facility] PCO Associate Professional Member Role: PCP Address: Address: [address] [place] [id number]
[2022-12-17 23:30] VITALS: BP 129/71; PULSE 82; TEMP 36.7; O2SAT 94
[2022-12-17] MEDS: Melatonin 3 MG TABLET 9 MG PO (23:51)
[2022-12-17] MEDS: traZODone HCL 100 MG TABLET PO (23:52)
[2022-12-17] MEDS: QUEtiapine Fumarate 300 MG TABLET PO (23:52)
[2022-12-17] MEDS: Topiramate 25 MG TABLET PO (23:52)
[2022-12-17] MEDS: HaloperidoL 5 MG TABLET 10 MG PO (23:52)
[2022-12-17] MEDS: Atorvastatin Calcium 40 MG TABLET PO (23:53)
[2022-12-18 00:39] VITALS: BMI 39.3
[2022-12-18] MEDS: Magnesium Hydrox/Alum Hydrox 30 ML ORAL.SUSP PO (03:19)
--- NOTE | 2022-12-18 03:48 | PC.ADMIT ---
admission for 12/17/22-patient was a referral from [facility] ER after assessment by crisis team. nurse to nurse and collateral information obtained prior to admission. legal: CV. dx; schizophrenia. patient is known to [facility] from a previous admission. presents as depressed with delusional thinking. reports that he went on a ''10 day fast'' that included not taking his medications. stated ''I had a cigar with the [employer] on [facility]'' referring to a group of demons. patient has no history of smoking and denied smoking at [facility] when assessed as well as when tool on admission was reviewed. unable to reality test. initially presented as mute but was given food and fluids during nursing assessment and stated ''I'm talking now because I am eating'' religiously preoccupied but polite. no drug or alcohol use. medical issues include, hyperlipidemia, thyroid d/o, gerd. medications reconciled at [facility] and orders placed by psychiatrist. patient reports that his goal for hospitalization is to be placed at an assisted living facility as he reports ''I can't take care of myself, i need more help'' states he has VNA services. safety tool initiated and completed. treatment plan initiated. oriented to unit.
[2022-12-18] MEDS: Levothyroxine Sodium 112 MCG TABLET PO (06:06)
[2022-12-18 08:55] LABS: Estimated Average Glucose 126 mg/dL
--- NOTE | 2022-12-18 09:00 | ECG_ITS ---
Test Reason : qtc check Blood Pressure : / mmHG Vent. Rate : 076 BPM Atrial Rate : 076 BPM P-R Int : 150 ms QRS Dur : 086 ms QT Int : 380 ms P-R-T Axes : 067 069 043 degrees QTc Int : 427 ms Normal sinus rhythm Normal ECG No previous ECGs available Referred By: Rebeka Baker Electronically Signed By:WINIFRED MOREJON MD
[2022-12-18 09:08] LABS: Cholesterol 148 mg/dL; HDL Cholesterol 30 mg/dL; LDL Cholesterol Calculated 60 mg/dl; Magnesium 2.2 mg/dL (1.6-2.6); Triglycerides 291 mg/dL
[2022-12-18 09:23] VITALS: BP 130/74; PULSE 83; TEMP 36.8; O2SAT 94
[2022-12-18] MEDS: Topiramate 25 MG TABLET PO ×2 (09:27→21:01)
[2022-12-18] MEDS: lamoTRIgine 25 MG TABLET PO (09:27)
[2022-12-18] MEDS: HaloperidoL 5 MG TABLET 10 MG PO ×3 (09:27→21:01)
[2022-12-18] MEDS: Aspirin Enteric Coated 81 MG TABLET.DR PO (09:28)
[2022-12-18] MEDS: hydrOXYzine HCL 25 MG TABLET PO (09:28)
[2022-12-18 09:38] LABS: Folate 13.2 ng/mL (> or = 4.0); Free T4 (Free Thyroxine) 1.26 ng/dL (0.71-1.85); Thyroid Stimulating Hormone 2.69 uIU/mL (0.32-4.0); Vitamin B12 606 pg/mL (200-900)
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
[2022-12-18] MEDS: Omeprazole 20 MG CAPSULE.DR PO ×2 (11:16→21:01)
--- NOTE | 2022-12-18 12:29 | HO.PM.IMCN ---
History of Present Illness Data of Consult Service Date: 12/18/22 Requesting physician: Rebeka Baker Primary Care Provider: Unknown Physician HPI Reason for consult: medical H&P 47-year-old male with history of anxiety depression, GERD, hyperlipidemia, hypothyroidism, PTSD, prediabetes, schizoaffective disorder bipolar type, and severe obesity admitted to Psychiatry with consult placed to hospitalist service for medical H and P. The patient has no acute concerns. He is reporting chronic issues with blurred vision stating he needs new glasses. He is also reporting chronic bilateral shoulder pain related to rotator cuff tears which he has not had surgically repaired. He denies any alcohol use, cigarette smoking, or drug use. He states he occasionally smokes a cigar. Review of Systems Review of Systems: General: No fevers, malaise, unintentional weight loss HEENT: +blurred vision. No diplopia. No sore throat, nasal congestion, rhinorrhea, sinus pain, ear pain Cardiovascular: No chest pain, palpitations, or leg edema Respiratory: No shortness of breath, wheezing, cough GI: No abdominal pain, nausea, vomiting, diarrhea, constipation, melena, hematochezia : No dysuria, hematuria, increased urinary frequency, decreased urinary output MSK: No myalgia, back pain. +bilateral shoulder pain Neuro: No headaches, weakness, paresthesias Skin: No rashes or lesions PMF Medical History GERD (gastroesophageal reflux disease) Hyperlipidemia Hypothyroidism Prediabetes Schizoaffective disorder, bipolar type Severe obesity (BMI 35.0-35.9 with comorbidity) Social History Household Members: None Housing: Apartment Do you presently have visiting nurse or other home services: Yes Patient Tobacco Use Status: Never used Tobacco e-Cigarette/Vaping Use: Never Used Second Hand Smoke Exposure: No Use of substances other than those prescribed or required for medical reasons: No Currently Displaying Signs/Symptoms of Drug Intoxication Withdrawal: No Have you been hit, kicked, punched, or otherwise hurt by someone within the past year? If so, by whom?: No Do you feel safe in your current relationship?: No Current Relationship Is there a partner from a previous relationship who is making you feel unsafe now?: No Are you made to feel afraid or neglected: No Spiritual Healthcare Practices: none identified Rastafari Healthcare Practices: none identified Cultural Healthcare Practices: none identified Advance Directives: No Advance Directives Information Provided: Yes Do you have thoughts of harming others: None Do you have a plan to hurt others: No Plan Recently lost weight without trying: No How much weight loss: Not applicable Eating poorly because of decreased appetite: No Nutrition screen score: 0 Nutrition Risks: No Nutritional Risk Poor oral hygiene: No service: No Sexual orientation: Don't Know Meds Allergies Allergy/AdvReac Type Severity Reaction Status Date / Time No Known Allergies Allergy Verified 07/11/22 22:21 Active Medications: Current Medications Acetaminophen (Acetaminophen 325 Mg Tablet) 650 mg PO Q6H PRN PRN Reason: Headache/Pain Mild Scale (1-3) Al Hydroxide/Mg Hydroxide (Magnesium Hydrox/Alum Hydrox 30 Ml Oral.Susp) 30 ml PO Q6H PRN PRN Reason: Heartburn/Nausea Last Admin: 12/18/22 03:19 Dose: 30 ml Aspirin (Aspirin Enteric Coated 81 Mg Tablet.) 81 mg PO DAILY [facility] Last Admin: 12/18/22 09:28 Dose: 81 mg Atorvastatin Calcium (Atorvastatin Calcium 40 Mg Tablet) 40 mg PO BEDTIME [facility] Last Admin: 12/17/22 23:53 Dose: 40 mg Haloperidol (Haloperidol 5 Mg Tablet) 10 mg PO TID [facility] Last Admin: 12/18/22 09:27 Dose: 10 mg Hydroxyzine HCl (Hydroxyzine Hcl 25 Mg Tablet) 25 mg PO Q6H PRN PRN Reason: Anxiety Last Admin: 12/18/22 09:28 Dose: 25 mg Lamotrigine (Lamotrigine 25 Mg Tablet) 25 mg PO DAILY [facility] Last Admin: 12/18/22 09:27 Dose: 25 mg Levothyroxine Sodium (Levothyroxine Sodium 112 Mcg Tablet) 112 mcg PO DAILY@0600 [facility] Last Admin: 12/18/22 06:06 Dose: 112 mcg Magnesium Hydroxide (Milk Of Magnesia 30 Ml Oral.Susp) 30 ml PO DAILY PRN PRN Reason: Constipation Melatonin (Melatonin 3 Mg Tablet) 9 mg PO BEDTIME [facility] Last Admin: 12/17/22 23:51 Dose: 9 mg Omeprazole (Omeprazole 20 Mg Capsule.) 20 mg PO BID [facility] Last Admin: 12/18/22 11:16 Dose: 20 mg Quetiapine Fumarate (Quetiapine Fumarate 300 Mg Tablet) 300 mg PO BEDTIME [facility] Last Admin: 12/17/22 23:52 Dose: 300 mg Topiramate (Topiramate 25 Mg Tablet) 25 mg PO BID [facility] Last Admin: 12/18/22 09:27 Dose: 25 mg Trazodone HCl (Trazodone Hcl 100 Mg Tablet) 100 mg PO BEDTIME [facility] Last Admin: 12/17/22 23:52 Dose: 100 mg Home Medications Medication Instructions Recorded Confirmed Last Taken Type atorvastatin 40 mg tablet 40 mg PO BEDTIME 07/12/22 07/12/22 12/17/22 23:30 History aspirin 81 mg chewable tablet 1 tab PO QAM 12/18/22 12/18/22 12/15/22 09:00 History ferrous sulfate 325 mg (65 mg 325 mg PO DAILY 12/18/22 12/18/22 Unknown History iron) tablet,delayed release haloperidol 5 mg tablet 10 mg PO TID 12/18/22 12/17/22 23:30 History lamotrigine 25 mg tablet 25 mg PO DAILY 12/18/22 12/18/22 12/17/22 23:30 History melatonin 3 mg tablet 9 mg PO BEDTIME 12/18/22 12/18/22 12/17/22 23:30 History topiramate 100 mg tablet 100 mg PO BID 12/18/22 12/18/22 Unknown History Physical Exam Vital Signs and Narrative: Vital Signs: Last Vital Signs Temp 98.2 F 12/18/22 09:23 Pulse 83 12/18/22 09:23 BP 130/74 12/18/22 09:23 Pulse Ox 94 12/18/22 09:23 O2 Del Method Room Air 12/18/22 09:23 BMI result Body Mass Index 39.3 Constitutional - Awake and Alert, No apparent distress Eyes - PERRLA, EOMI Cardiovascular - S1S2, RRR, No edema Respiratory - Normal lung expansion, Normal respiratory effort, No respiratory distress, CTA bilaterally Gastrointestinal - NT / ND; +BS; No rebound or guarding Extremities - no calf tenderness bilaterally, no swelling Musculoskeletal - Normal inspection, normal ROM Skin - Warm/Dry Neurological - Alert & oriented x3, CN II-XII in tact, 5/5 strength BUE and BLE Results Labs Labs: Laboratory Results - last 24 hr 12/18/22 12/18/22 08:31 08:31 Estimat Average Glucose 126 Hemoglobin A1c % 6.0 Magnesium 2.2 Triglycerides 291 Cholesterol 148 LDL Cholesterol, Calc 60 HDL Cholesterol 30 Vitamin B12 606 Folate 13.2 TSH 2.69 Free T4 1.26 Assessment and Plan (1) Routine medical exam: Status: Acute Plan 47-year-old male with history of anxiety depression, GERD, hyperlipidemia, hypothyroidism, PTSD, prediabetes, schizoaffective disorder bipolar type, and severe obesity admitted to Psychiatry from [facility] ED with consult placed to hospitalist service for medical H and P. #Schizoaffective disorder bipolar type -plan per psychiatry #GERD -continue ppi -antacids prn #Hypothyroidism -Euthyroid -Continue levothyroxine #Prediabetes -pt has been working on lower carbohydrate diet -Encouraged to continue with this and educated on reversibility of the condition -Hgb A1c 6.0% #HLD -continue statin #Chronic shoulder pain -tylenol, ibuprofen prn. Lidocaine patches -outpt follow up with pcp/ortho #Blurred vision- chronic -outpt follow up with Ophthalmology Thank you for allowing me to participate in this consult. Signing off at this time. Please do not hesitate to call for further questions. Time Spent With Patient Time: Total time managing care of this patient today ____ minutes.
[2022-12-18] MEDS: Atorvastatin Calcium 40 MG TABLET PO (21:01)
[2022-12-18] MEDS: traZODone HCL 100 MG TABLET PO (21:01)
[2022-12-18] MEDS: QUEtiapine Fumarate 300 MG TABLET PO (21:01)
[2022-12-18] MEDS: Melatonin 3 MG TABLET 9 MG PO (21:01)
[2022-12-18 21:06] VITALS: BP 139/82; PULSE 88; TEMP 36.7; O2SAT 92
[2022-12-19] MEDS: Omeprazole 20 MG CAPSULE.DR PO ×2 (06:51→20:28)
[2022-12-19] MEDS: Levothyroxine Sodium 112 MCG TABLET PO (06:51)
[2022-12-19 08:00] VITALS: BP 134/85; PULSE 87; RESP 18; TEMP 36.8; O2SAT 96
[2022-12-19] MEDS: HaloperidoL 5 MG TABLET 10 MG PO ×3 (09:52→20:29)
[2022-12-19] MEDS: lamoTRIgine 25 MG TABLET PO (09:53)
[2022-12-19] MEDS: Topiramate 25 MG TABLET PO ×2 (09:53→20:29)
[2022-12-19] MEDS: Aspirin Enteric Coated 81 MG TABLET.DR PO (09:53)
[2022-12-19] MEDS: hydrOXYzine HCL 25 MG TABLET PO (10:17)
--- NOTE | 2022-12-19 12:38 | PC.NURSE ---
Pt recieved back to floor from OR from Lumbar Puncture, pT awake and alert oriented x4. Denies pain at this time . Pt is redirected frequently to lay flat in bed. However se continues to sit up and walk . 1:1 sitter at Pts bed side.
[2022-12-19] MEDS: traZODone HCL 100 MG TABLET PO (20:29)
[2022-12-19] MEDS: Melatonin 3 MG TABLET 9 MG PO (20:29)
[2022-12-19] MEDS: QUEtiapine Fumarate 300 MG TABLET PO (20:29)
[2022-12-19] MEDS: Atorvastatin Calcium 40 MG TABLET PO (20:29)
[2022-12-19 20:32] VITALS: BP 139/73; PULSE 95; RESP 18; TEMP 36.6; O2SAT 94
--- NOTE | 2022-12-19 22:42 | P.PNPSI_ITS ---
Subjective Subjective Date of Service: 12/19/22 Reason For Visit: Schizophrenia Subjective Notes: Conditional Voluntary Interim History: Patient come cooperative psychotically preoccupied but not agitated Mental Status Exam Mental Status Exam Narrative: Appearance: MO, disheveled with poor hygiene, in NAD Behavior: dismissive Psychomotor: no agitation or retardation noted Speech: mumbles at times, some delayed in response, spontaneous TP: disorganized TC: hearing voices telling him to assembly instructions writer letter to the president to save the world Mood: okay Affect: Calm SI: denies HI: denies AH: reports hearing voices not overly concerned when seen VH: seeing shadows, demons Insight/judgment: impaired x 2. Memory/cog: alert, oriented to place, month, year not situation Diagnostics Vital Signs (24Hr): Vital Signs - 24 hr 12/19/22 08:00 12/19/22 20:32 Temperature 98.3 F 97.9 F Pulse Rate 87 95 Respiratory Rate 18 18 Blood Pressure 134/85 139/73 Pulse Oximetry 96 94 Oxygen Delivery Method Room Air Room Air BMI result Body Mass Index 39.3 Labs Labs: Laboratory Results - last 48 hr 12/18/22 12/18/22 08:31 08:31 Estimat Average Glucose 126 Hemoglobin A1c % 6.0 Magnesium 2.2 Triglycerides 291 Cholesterol 148 LDL Cholesterol, Calc 60 HDL Cholesterol 30 Vitamin B12 606 Folate 13.2 TSH 2.69 Free T4 1.26 Medications Medications Current Medications Acetaminophen (Acetaminophen 325 Mg Tablet) 650 mg PO Q6H PRN PRN Reason: Headache/Pain Mild Scale (1-3) Al Hydroxide/Mg Hydroxide (Magnesium Hydrox/Alum Hydrox 30 Ml Oral.Susp) 30 ml PO Q6H PRN PRN Reason: Heartburn/Nausea Last Admin: 12/18/22 03:19 Dose: 30 ml Aspirin (Aspirin Enteric Coated 81 Mg Tablet.Dr) 81 mg PO DAILY [facility] Last Admin: 12/19/22 09:53 Dose: 81 mg Atorvastatin Calcium (Atorvastatin Calcium 40 Mg Tablet) 40 mg PO BEDTIME [facility] Last Admin: 12/19/22 20:29 Dose: 40 mg Haloperidol (Haloperidol 5 Mg Tablet) 10 mg PO TID [facility] Last Admin: 12/19/22 20:29 Dose: 10 mg Hydroxyzine HCl (Hydroxyzine Hcl 25 Mg Tablet) 25 mg PO Q6H PRN PRN Reason: Anxiety Last Admin: 12/19/22 10:17 Dose: 25 mg Lamotrigine (Lamotrigine 25 Mg Tablet) 25 mg PO DAILY [facility] Last Admin: 12/19/22 09:53 Dose: 25 mg Levothyroxine Sodium (Levothyroxine Sodium 112 Mcg Tablet) 112 mcg PO DAILY@0600 [facility] Last Admin: 12/19/22 06:51 Dose: 112 mcg Magnesium Hydroxide (Milk Of Magnesia 30 Ml Oral.Susp) 30 ml PO DAILY PRN PRN Reason: Constipation Melatonin (Melatonin 3 Mg Tablet) 9 mg PO BEDTIME [facility] Last Admin: 12/19/22 20:29 Dose: 9 mg Omeprazole (Omeprazole 20 Mg Capsule.Dr) 20 mg PO BID [facility] Last Admin: 12/19/22 20:28 Dose: 20 mg Quetiapine Fumarate (Quetiapine Fumarate 300 Mg Tablet) 300 mg PO BEDTIME [facility] Last Admin: 12/19/22 20:29 Dose: 300 mg Topiramate (Topiramate 25 Mg Tablet) 25 mg PO BID [facility] Last Admin: 12/19/22 20:29 Dose: 25 mg Trazodone HCl (Trazodone Hcl 100 Mg Tablet) 100 mg PO BEDTIME [facility] Last Admin: 12/19/22 20:29 Dose: 100 mg Allergies Allergies Allergy/AdvReac Type Severity Reaction Status Date / Time No Known Allergies Allergy Verified 07/11/22 22:21 Assessment & Plan Assessment & Plan (1) Schizoaffective disorder, bipolar type: Status: Acute Code(s): F25.0 - Schizoaffective disorder, bipolar type Plan Mr. Palomares is a 47 year-old male with hx of schizophrenia who self presented to [facility] ED reporting that his house was full of demons and he did not feel safe in the community. He asked to be placed somewhere. He reported he stopped taking his medications.Pt presents with delusions of having special perdomo to save the world, AH telling him to assembly instructions writer to president. He also reports seeing demons and has crosses in his room. Utox is neg. BAL neg. We discussed risks, benefits and alternative tx options. Pt agrees to restart combination of haldol, seroquel. PLAN 1. Admit to M3, CV, 15 minutes checks for safety. 2. Continue haldol, seroquel 3. Obtain collateral information 4. Aftercare planning 12/19/2022 Patient less irritable and agitated continue Seroquel and Haldol monitor for adverse effects. Reason for contiued inpatient stay Substantial Risk for: inability to function and rapid decompensation Time Spent With Patient Time: Total time managing care of this patient today ____ minutes.
[2022-12-20] MEDS: Levothyroxine Sodium 112 MCG TABLET PO (06:28)
[2022-12-20] MEDS: lamoTRIgine 25 MG TABLET PO (09:53)
[2022-12-20] MEDS: Omeprazole 20 MG CAPSULE.DR PO ×2 (09:53→21:06)
[2022-12-20] MEDS: HaloperidoL 5 MG TABLET 10 MG PO ×3 (09:54→21:06)
[2022-12-20] MEDS: Topiramate 25 MG TABLET PO ×2 (09:54→21:06)
[2022-12-20] MEDS: Aspirin Enteric Coated 81 MG TABLET.DR PO (09:55)
[2022-12-20] MEDS: hydrOXYzine HCL 25 MG TABLET PO (13:23)
--- NOTE | 2022-12-20 18:35 | PC.NURSE ---
Patient was seen walking in the hallway and yelling random statements to include Arabic is the only language we should speak here. T/w asked patient if he needed anything and patient stated I'm working overtime. I was on the loudspeaker so everyone could here me. This manual writer encouraged to take a break and relax. Patient agreed and is now in his room, no further yelling noted.
[2022-12-20] MEDS: Atorvastatin Calcium 40 MG TABLET PO (21:06)
[2022-12-20] MEDS: QUEtiapine Fumarate 300 MG TABLET PO (21:06)
[2022-12-20] MEDS: Melatonin 3 MG TABLET 9 MG PO (21:06)
[2022-12-20] MEDS: traZODone HCL 100 MG TABLET PO (21:06)
[2022-12-20 21:09] VITALS: BP 169/87; PULSE 72; RESP 16; TEMP 35.7; O2SAT 98
--- NOTE | 2022-12-20 21:50 | HO.PSYCHPN ---
Subjective Subjective Date of Service: 12/20/22 Reason For Visit: Schizophrenia Subjective Notes: Conditional Voluntary Interim History: Patient psychotically preoccupied kayogeremias everett internally preoccupied Mental Status Exam Mental Status Exam Narrative: Appearance: MO, disheveled with poor hygiene, in NAD Behavior: dismissive Psychomotor: no agitation or retardation noted Speech: mumbles at times, some delayed in response, spontaneous TP: disorganized TC: hearing voices telling him to entry writer letter to the president to save the world Mood: okay Affect: Calm SI: denies HI: denies AH: reports hearing voices not overly concerned when seen VH: seeing shadows, demons Insight/judgment: impaired x 2. Memory/cog: alert, oriented to place, month, year not situation Diagnostics Vital Signs (24Hr): Vital Signs - 24 hr 12/20/22 21:09 Temperature 96.2 F L Pulse Rate 72 Respiratory Rate 16 Blood Pressure 169/87 H Pulse Oximetry 98 Oxygen Delivery Method Room Air BMI result Body Mass Index 39.3 Medications Medications Current Medications Acetaminophen (Acetaminophen 325 Mg Tablet) 650 mg PO Q6H PRN PRN Reason: Headache/Pain Mild Scale (1-3) Al Hydroxide/Mg Hydroxide (Magnesium Hydrox/Alum Hydrox 30 Ml Oral.Susp) 30 ml PO Q6H PRN PRN Reason: Heartburn/Nausea Last Admin: 12/18/22 03:19 Dose: 30 ml Aspirin (Aspirin Enteric Coated 81 Mg Tablet.Dr) 81 mg PO DAILY [facility] Last Admin: 12/20/22 09:55 Dose: 81 mg Atorvastatin Calcium (Atorvastatin Calcium 40 Mg Tablet) 40 mg PO BEDTIME [facility] Last Admin: 12/20/22 21:06 Dose: 40 mg Haloperidol (Haloperidol 5 Mg Tablet) 10 mg PO TID [facility] Last Admin: 12/20/22 21:06 Dose: 10 mg Hydroxyzine HCl (Hydroxyzine Hcl 25 Mg Tablet) 25 mg PO Q6H PRN PRN Reason: Anxiety Last Admin: 12/20/22 13:23 Dose: 25 mg Lamotrigine (Lamotrigine 25 Mg Tablet) 25 mg PO DAILY [facility] Last Admin: 12/20/22 09:53 Dose: 25 mg Levothyroxine Sodium (Levothyroxine Sodium 112 Mcg Tablet) 112 mcg PO DAILY [facility] Magnesium Hydroxide (Milk Of Magnesia 30 Ml Oral.Susp) 30 ml PO DAILY PRN PRN Reason: Constipation Melatonin (Melatonin 3 Mg Tablet) 9 mg PO BEDTIME [facility] Last Admin: 12/20/22 21:06 Dose: 9 mg Omeprazole (Omeprazole 20 Mg Capsule.) 20 mg PO BID [facility] Last Admin: 12/20/22 21:06 Dose: 20 mg Quetiapine Fumarate (Quetiapine Fumarate 300 Mg Tablet) 300 mg PO BEDTIME [facility] Last Admin: 12/20/22 21:06 Dose: 300 mg Topiramate (Topiramate 25 Mg Tablet) 25 mg PO BID [facility] Last Admin: 12/20/22 21:06 Dose: 25 mg Trazodone HCl (Trazodone Hcl 100 Mg Tablet) 100 mg PO BEDTIME [facility] Last Admin: 12/20/22 21:06 Dose: 100 mg Allergies Allergies Allergy/AdvReac Type Severity Reaction Status Date / Time No Known Allergies Allergy Verified 07/11/22 22:21 Assessment & Plan Assessment & Plan (1) Schizoaffective disorder, bipolar type: Status: Acute Code(s): F25.0 - Schizoaffective disorder, bipolar type Plan Mr. Palomares is a 47 year-old male with hx of schizophrenia who self presented to [facility] ED reporting that his house was full of demons and he did not feel safe in the community. He asked to be placed somewhere. He reported he stopped taking his medications.Pt presents with delusions of having special perdomo to save the world, AH telling him to entry writer to president. He also reports seeing demons and has crosses in his room. Utox is neg. BAL neg. We discussed risks, benefits and alternative tx options. Pt agrees to restart combination of haldol, seroquel. PLAN 1. Admit to M3, CV, 15 minutes checks for safety. 2. Continue haldol, seroquel 3. Obtain collateral information 4. Aftercare planning 12/19/2022 Patient less irritable and agitated continue Seroquel and Haldol monitor for adverse effects. 12/20/22 Cont plan of care monitor psychoses Reason for continued inpatient stay Substantial Risk for: inability to function and rapid decompensation Time Spent With Patient Time: Total time managing care of this patient today ____ minutes.
--- NOTE | 2022-12-20 22:28 | HO.PSYCHPN ---
Subjective Subjective Date of Service: 12/20/22 Reason For Visit: Schizophrenia Subjective Notes: Conditional Voluntary Interim History: Pt pacing on the mims. He reports he is writing multiple letter to the president Jeronimo but also to the First Lady. He believes the first lady is designated by God to be next president for eternity. He reports voices continue to tell him how to guide the president and first lady to save the world. 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 Pt states he is mostly in his room, not interacting with others because he is very busy. He denies SI/HI. Diagnostics Vital Signs (24Hr): Vital Signs - 24 hr 12/20/22 21:09 Temperature 96.2 F L Pulse Rate 72 Respiratory Rate 16 Blood Pressure 169/87 H Pulse Oximetry 98 Oxygen Delivery Method Room Air BMI result Body Mass Index 39.3 Medications Medications Current Medications Acetaminophen (Acetaminophen 325 Mg Tablet) 650 mg PO Q6H PRN PRN Reason: Headache/Pain Mild Scale (1-3) Al Hydroxide/Mg Hydroxide (Magnesium Hydrox/Alum Hydrox 30 Ml Oral.Susp) 30 ml PO Q6H PRN PRN Reason: Heartburn/Nausea Last Admin: 12/18/22 03:19 Dose: 30 ml Aspirin (Aspirin Enteric Coated 81 Mg Tablet.) 81 mg PO DAILY [facility] Last Admin: 12/20/22 09:55 Dose: 81 mg Atorvastatin Calcium (Atorvastatin Calcium 40 Mg Tablet) 40 mg PO BEDTIME [facility] Last Admin: 12/20/22 21:06 Dose: 40 mg Haloperidol (Haloperidol 5 Mg Tablet) 10 mg PO TID [facility] Last Admin: 12/20/22 21:06 Dose: 10 mg Hydroxyzine HCl (Hydroxyzine Hcl 25 Mg Tablet) 25 mg PO Q6H PRN PRN Reason: Anxiety Last Admin: 12/20/22 13:23 Dose: 25 mg Lamotrigine (Lamotrigine 25 Mg Tablet) 25 mg PO DAILY [facility] Last Admin: 12/20/22 09:53 Dose: 25 mg Levothyroxine Sodium (Levothyroxine Sodium 112 Mcg Tablet) 112 mcg PO DAILY [facility] Magnesium Hydroxide (Milk Of Magnesia 30 Ml Oral.Susp) 30 ml PO DAILY PRN PRN Reason: Constipation Melatonin (Melatonin 3 Mg Tablet) 9 mg PO BEDTIME [facility] Last Admin: 12/20/22 21:06 Dose: 9 mg Omeprazole (Omeprazole 20 Mg Capsule.) 20 mg PO BID [facility] Last Admin: 12/20/22 21:06 Dose: 20 mg Quetiapine Fumarate (Quetiapine Fumarate 300 Mg Tablet) 300 mg PO BEDTIME [facility] Last Admin: 12/20/22 21:06 Dose: 300 mg Topiramate (Topiramate 25 Mg Tablet) 25 mg PO BID [facility] Last Admin: 12/20/22 21:06 Dose: 25 mg Trazodone HCl (Trazodone Hcl 100 Mg Tablet) 100 mg PO BEDTIME [facility] Last Admin: 12/20/22 21:06 Dose: 100 mg Allergies Allergies Allergy/AdvReac Type Severity Reaction Status Date / Time No Known Allergies Allergy Verified 07/11/22 22:21 Assessment & Plan Assessment & Plan (1) Schizoaffective disorder, bipolar type: Status: Acute Code(s): F25.0 - Schizoaffective disorder, bipolar type Plan Mr. Palomares is a 47 year-old male with hx of schizophrenia who self presented to [facility] ED reporting that his house was full of demons and he did not feel safe in the community. He asked to be placed somewhere. He reported he stopped taking his medications.Pt presents with delusions of having special perdomo to save the world, AH telling him to comic book writer to president. He also reports seeing demons and has crosses in his room. Utox is neg. BAL neg. We discussed risks, benefits and alternative tx options. Pt agrees to restart combination of haldol, seroquel. PLAN 1. Admit to M3, CV, 15 minutes checks for safety. 2. Continue haldol, seroquel 3. Obtain collateral information 4. Aftercare planning 12/19/2022 Patient less irritable and agitated continue Seroquel and Haldol monitor for adverse effects. 12/20/22 continue tx. Reason for continued inpatient stay Substantial Risk for: inability to function Time Spent With Patient Time: Total time managing care of this patient today ____ minutes.
[2022-12-21] MEDS: Levothyroxine Sodium 112 MCG TABLET PO (07:09)
[2022-12-21 09:30] VITALS: BP 139/82; PULSE 96; RESP 18; TEMP 36.6; O2SAT 95
[2022-12-21] MEDS: Omeprazole 20 MG CAPSULE.DR PO ×2 (09:43→21:52)
[2022-12-21] MEDS: Aspirin Enteric Coated 81 MG TABLET.DR PO (09:43)
[2022-12-21] MEDS: Topiramate 25 MG TABLET PO ×2 (09:44→21:52)
[2022-12-21] MEDS: lamoTRIgine 25 MG TABLET PO (09:44)
[2022-12-21] MEDS: HaloperidoL 5 MG TABLET 10 MG PO ×3 (09:44→21:52)
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
[2022-12-21 21:45] VITALS: BP 175/83; PULSE 82; RESP 18; TEMP 36.5; O2SAT 99
[2022-12-21] MEDS: Atorvastatin Calcium 40 MG TABLET PO (21:51)
[2022-12-21] MEDS: QUEtiapine Fumarate 300 MG TABLET PO (21:51)
[2022-12-21] MEDS: Melatonin 3 MG TABLET 9 MG PO (21:51)
[2022-12-21] MEDS: traZODone HCL 100 MG TABLET PO (21:52)
[2022-12-22] MEDS: Levothyroxine Sodium 112 MCG TABLET PO (08:27)
[2022-12-22] MEDS: Acetaminophen 325 MG TABLET 650 MG PO (08:29)
[2022-12-22 08:30] VITALS: BP 135/75; PULSE 96; RESP 16; TEMP 37; O2SAT 95
[2022-12-22] MEDS: Aspirin Enteric Coated 81 MG TABLET.DR PO (09:39)
[2022-12-22] MEDS: lamoTRIgine 25 MG TABLET PO (09:39)
[2022-12-22] MEDS: Omeprazole 20 MG CAPSULE.DR PO ×2 (09:40→20:11)
[2022-12-22] MEDS: Topiramate 25 MG TABLET PO ×2 (09:40→20:11)
[2022-12-22] MEDS: HaloperidoL 5 MG TABLET 10 MG PO ×3 (09:40→20:11)
--- NOTE | 2022-12-22 13:37 | P.PNPSI_ITS ---
Subjective Subjective Date of Service: 12/22/22 Reason For Visit: Schizophrenia Subjective Notes: Laird Warning and 3 Day Interim History: Patient seen. Chart reviewed. Case discussed with RN. Patient had episode of agitation yesterday evening where he was yelling and slammed his door several times. Was able to stay in room and calm himself down after that. Signed 3 day notice. Was awake at 4 AM this morning. No PRNs given. Continues to be preoccupied with wanting to be back on paxil. Medication Compliance: Yes Side effects from medications: No Attending Groups: No Mental Status Exam Mental Status Exam Patient Appearance: Disheveled Level of Consciousness: Alert Patient Behavior: Guarded and Belligerent (at times) Mood Description: Withdrawn Affect Description: Anxious Speech Pattern: Clear and Loud (at times) Hallucinations: None Delusions: Paranoid Ideation Thought Content: positive for Perseveration and positive for Loose Associations Depressive Symptoms: Increased Irritability and Difficulty Sleeping Diagnostics Vital Signs (24Hr): Vital Signs - 24 hr 12/21/22 21:45 12/22/22 08:30 Temperature 97.7 F 98.6 F Pulse Rate 82 96 Respiratory Rate 18 16 Blood Pressure 175/83 H 135/75 Pulse Oximetry 99 95 Oxygen Delivery Method Room Air Room Air BMI result Body Mass Index 39.3 Medications Medications Current Medications Acetaminophen (Acetaminophen 325 Mg Tablet) 650 mg PO Q6H PRN PRN Reason: Headache/Pain Mild Scale (1-3) Last Admin: 12/22/22 08:29 Dose: 650 mg Al Hydroxide/Mg Hydroxide (Magnesium Hydrox/Alum Hydrox 30 Ml Oral.Susp) 30 ml PO Q6H PRN PRN Reason: Heartburn/Nausea Last Admin: 12/18/22 03:19 Dose: 30 ml Aspirin (Aspirin Enteric Coated 81 Mg Tablet.Dr) 81 mg PO DAILY [facility] Last Admin: 12/22/22 09:39 Dose: 81 mg Atorvastatin Calcium (Atorvastatin Calcium 40 Mg Tablet) 40 mg PO BEDTIME [facility] Last Admin: 12/21/22 21:51 Dose: 40 mg Haloperidol (Haloperidol 5 Mg Tablet) 10 mg PO TID [facility] Last Admin: 12/22/22 09:40 Dose: 10 mg Hydroxyzine HCl (Hydroxyzine Hcl 25 Mg Tablet) 25 mg PO Q6H PRN PRN Reason: Anxiety Last Admin: 12/20/22 13:23 Dose: 25 mg Lamotrigine (Lamotrigine 25 Mg Tablet) 25 mg PO DAILY [facility] Last Admin: 12/22/22 09:39 Dose: 25 mg Levothyroxine Sodium (Levothyroxine Sodium 112 Mcg Tablet) 112 mcg PO DAILY [facility] Last Admin: 12/22/22 08:27 Dose: 112 mcg Magnesium Hydroxide (Milk Of Magnesia 30 Ml Oral.Susp) 30 ml PO DAILY PRN PRN Reason: Constipation Melatonin (Melatonin 3 Mg Tablet) 9 mg PO BEDTIME [facility] Last Admin: 12/21/22 21:51 Dose: 9 mg Omeprazole (Omeprazole 20 Mg Capsule.Dr) 20 mg PO BID [facility] Last Admin: 12/22/22 09:40 Dose: 20 mg Quetiapine Fumarate (Quetiapine Fumarate 300 Mg Tablet) 300 mg PO BEDTIME [facility] Last Admin: 12/21/22 21:51 Dose: 300 mg Topiramate (Topiramate 25 Mg Tablet) 25 mg PO BID [facility] Last Admin: 12/22/22 09:40 Dose: 25 mg Trazodone HCl (Trazodone Hcl 100 Mg Tablet) 100 mg PO BEDTIME [facility] Last Admin: 12/21/22 21:52 Dose: 100 mg Allergies Allergies Allergy/AdvReac Type Severity Reaction Status Date / Time No Known Allergies Allergy Verified 07/11/22 22:21 Assessment & Plan Assessment & Plan (1) Schizoaffective disorder, bipolar type: Status: Acute Code(s): F25.0 - Schizoaffective disorder, bipolar type Plan Mr. Palomares is a 47 year-old male with hx of schizophrenia who self presented to [facility] ED reporting that his house was full of demons and he did not feel safe in the community. He asked to be placed somewhere. He reported he stopped taking his medications.Pt presents with delusions of having special perdomo to save the world, AH telling him to ad writer to president. He also reports seeing demons and has crosses in his room. Utox is neg. BAL neg. We discussed risks, benefits and alternative tx options. Pt agrees to restart combination of haldol, seroquel. PLAN 1. Admit to M3, CV, 15 minutes checks for safety. 2. Continue haldol, seroquel 3. Obtain collateral information 4. Aftercare planning 12/19/2022 Patient less irritable and agitated continue Seroquel and Haldol monitor for adverse effects. 12/20/22 continue tx. 12/21: No medication changes 12/22 Add PRN Seroquel Reason for continued inpatient stay Substantial Risk for: rapid decompensation Time Spent With Patient Time: Total time managing care of this patient today ____ minutes.
[2022-12-22] MEDS: Melatonin 3 MG TABLET 9 MG PO (20:10)
[2022-12-22] MEDS: traZODone HCL 100 MG TABLET PO (20:11)
[2022-12-22] MEDS: Atorvastatin Calcium 40 MG TABLET PO (20:11)
[2022-12-22] MEDS: QUEtiapine Fumarate 300 MG TABLET PO (20:12)
[2022-12-23] MEDS: Levothyroxine Sodium 112 MCG TABLET PO (08:08)
[2022-12-23] MEDS: Acetaminophen 325 MG TABLET 650 MG PO (09:26)
[2022-12-23] MEDS: Topiramate 25 MG TABLET PO ×2 (09:26→20:02)
[2022-12-23] MEDS: Omeprazole 20 MG CAPSULE.DR PO ×2 (09:27→20:01)
[2022-12-23] MEDS: HaloperidoL 5 MG TABLET 10 MG PO ×3 (09:27→20:02)
[2022-12-23] MEDS: Aspirin Enteric Coated 81 MG TABLET.DR PO (09:27)
[2022-12-23] MEDS: lamoTRIgine 25 MG TABLET PO (09:27)
--- NOTE | 2022-12-23 14:21 | HO.PSYCHPN ---
Subjective Subjective Date of Service: 12/23/22 Reason For Visit: Schizophrenia Subjective Notes: Laird Warning and 3 Day Interim History: More low canales although still wants to be back on paxil and perseverates about this issue. Slammed door a little yesterday but not as intense. Took PRN seroquel yesterday. Medication Compliance: Yes Side effects from medications: No Attending Groups: No Review of Systems Acute medical concerns: No Mental Status Exam Mental Status Exam Patient Appearance: Unkempt Level of Consciousness: Drowsy Patient Behavior: Isolative Mood Description: Apathetic Affect Description: Depressed Patient Cognition Impaired: No Speech Pattern: Mumbled Hallucinations: None Delusions: Not Present Thought Process: Slowed Thinking Thought Content: positive for Linear and positive for Perseveration Depressive Symptoms: Sleeping More Than Usual and Loss of Energy Judgement: Fair Diagnostics Vital Signs (24Hr): BMI result Body Mass Index 39.3 Medications Medications Current Medications Acetaminophen (Acetaminophen 325 Mg Tablet) 650 mg PO Q6H PRN PRN Reason: Headache/Pain Mild Scale (1-3) Last Admin: 12/23/22 09:26 Dose: 650 mg Al Hydroxide/Mg Hydroxide (Magnesium Hydrox/Alum Hydrox 30 Ml Oral.Susp) 30 ml PO Q6H PRN PRN Reason: Heartburn/Nausea Last Admin: 12/18/22 03:19 Dose: 30 ml Aspirin (Aspirin Enteric Coated 81 Mg Tablet.) 81 mg PO DAILY [facility] Last Admin: 12/23/22 09:27 Dose: 81 mg Atorvastatin Calcium (Atorvastatin Calcium 40 Mg Tablet) 40 mg PO BEDTIME [facility] Last Admin: 12/22/22 20:11 Dose: 40 mg Haloperidol (Haloperidol 5 Mg Tablet) 10 mg PO TID [facility] Last Admin: 12/23/22 09:27 Dose: 10 mg Lamotrigine (Lamotrigine 25 Mg Tablet) 25 mg PO DAILY [facility] Last Admin: 12/23/22 09:27 Dose: 25 mg Levothyroxine Sodium (Levothyroxine Sodium 112 Mcg Tablet) 112 mcg PO DAILY [facility] Last Admin: 12/23/22 08:08 Dose: 112 mcg Magnesium Hydroxide (Milk Of Magnesia 30 Ml Oral.Susp) 30 ml PO DAILY PRN PRN Reason: Constipation Melatonin (Melatonin 3 Mg Tablet) 9 mg PO BEDTIME [facility] Last Admin: 12/22/22 20:10 Dose: 9 mg Omeprazole (Omeprazole 20 Mg Capsule.) 20 mg PO BID [facility] Last Admin: 12/23/22 09:27 Dose: 20 mg Quetiapine Fumarate (Quetiapine Fumarate 300 Mg Tablet) 300 mg PO BEDTIME [facility] Last Admin: 12/22/22 20:12 Dose: 300 mg Quetiapine Fumarate (Quetiapine Fumarate 25 Mg Tablet) 25 mg PO BID PRN PRN Reason: agitation Topiramate (Topiramate 25 Mg Tablet) 25 mg PO BID [facility] Last Admin: 12/23/22 09:26 Dose: 25 mg Trazodone HCl (Trazodone Hcl 100 Mg Tablet) 100 mg PO BEDTIME [facility] Last Admin: 12/22/22 20:11 Dose: 100 mg Allergies Allergies Allergy/AdvReac Type Severity Reaction Status Date / Time No Known Allergies Allergy Verified 07/11/22 22:21 Assessment & Plan Assessment & Plan (1) Schizoaffective disorder, bipolar type: Status: Acute Code(s): F25.0 - Schizoaffective disorder, bipolar type Plan Mr. Palomares is a 47 year-old male with hx of schizophrenia who self presented to [facility] ED reporting that his house was full of demons and he did not feel safe in the community. He asked to be placed somewhere. He reported he stopped taking his medications.Pt presents with delusions of having special perdomo to save the world, AH telling him to law writer to president. He also reports seeing demons and has crosses in his room. Utox is neg. BAL neg. We discussed risks, benefits and alternative tx options. Pt agrees to restart combination of haldol, seroquel. PLAN 1. Admit to M3, CV, 15 minutes checks for safety. 2. Continue haldol, seroquel 3. Obtain collateral information 4. Aftercare planning 12/19/2022 Patient less irritable and agitated continue Seroquel and Haldol monitor for adverse effects. 12/20/22 continue tx. 12/21: No medication changes 12/22 Add PRN Seroquel 12/23 no med changes Reason for continued inpatient stay Substantial Risk for: inability to function Time Spent With Patient Time: Total time managing care of this patient today ____ minutes.
[2022-12-23 20:00] VITALS: BP 152/98; PULSE 96; RESP 18; TEMP 36.8; O2SAT 95
[2022-12-23] MEDS: Atorvastatin Calcium 40 MG TABLET PO (20:01)
[2022-12-23] MEDS: QUEtiapine Fumarate 300 MG TABLET PO (20:02)
[2022-12-23] MEDS: traZODone HCL 100 MG TABLET PO (20:02)
[2022-12-23] MEDS: Melatonin 3 MG TABLET 9 MG PO (20:02)
[2022-12-24] MEDS: Aspirin Enteric Coated 81 MG TABLET.DR PO (11:19)
[2022-12-24] MEDS: Omeprazole 20 MG CAPSULE.DR PO ×2 (11:19→22:22)
[2022-12-24] MEDS: lamoTRIgine 25 MG TABLET PO (11:20)
[2022-12-24] MEDS: Levothyroxine Sodium 112 MCG TABLET PO (11:20)
[2022-12-24] MEDS: Topiramate 25 MG TABLET PO ×2 (11:20→22:23)
[2022-12-24] MEDS: HaloperidoL 5 MG TABLET 10 MG PO ×2 (11:20→22:23)
[2022-12-24 11:24] VITALS: BP 139/90; PULSE 105; RESP 18; TEMP 36.6; O2SAT 97
[2022-12-24] MEDS: chlorproMAZINE HCl 25 MG/ML AMPUL 100 MG IM (12:29)
[2022-12-24] MEDS: LORazepam 2 MG/ML VIAL IM (12:30)
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
[2022-12-24 20:30] VITALS: BP 136/87; PULSE 107; TEMP 36.6; O2SAT 97
[2022-12-24] MEDS: LORazepam 1 MG TABLET PO (20:44)
[2022-12-24] MEDS: Melatonin 3 MG TABLET 9 MG PO (22:21)
[2022-12-24] MEDS: traZODone HCL 100 MG TABLET PO (22:22)
[2022-12-24] MEDS: Atorvastatin Calcium 40 MG TABLET PO (22:22)
[2022-12-24] MEDS: QUEtiapine Fumarate 300 MG TABLET PO (22:22)
[2022-12-25 06:00] VITALS: BP 132/84; PULSE 102; RESP 16; TEMP 36.7; O2SAT 98
[2022-12-25] MEDS: PARoxetine HCL 10 MG TABLET PO (10:30)
[2022-12-25] MEDS: Aspirin Enteric Coated 81 MG TABLET.DR PO (10:30)
[2022-12-25] MEDS: Levothyroxine Sodium 112 MCG TABLET PO (10:30)
[2022-12-25] MEDS: Topiramate 25 MG TABLET PO ×2 (10:30→20:41)
[2022-12-25] MEDS: lamoTRIgine 25 MG TABLET PO (10:30)
[2022-12-25] MEDS: HaloperidoL 5 MG TABLET 10 MG PO ×3 (10:31→20:41)
[2022-12-25] MEDS: Omeprazole 20 MG CAPSULE.DR PO ×2 (10:31→20:42)
[2022-12-25] MEDS: QUEtiapine Fumarate 100 MG TABLET PO (11:06)
[2022-12-25] MEDS: LORazepam 1 MG TABLET 2 MG PO (11:56)
[2022-12-25] MEDS: chlorproMAZINE HCl 100 MG TABLET PO (11:57)
--- NOTE | 2022-12-25 16:48 | P.PNPSI_ITS ---
Subjective Subjective Date of Service: 12/25/22 Reason For Visit: Schizophrenia Subjective Notes: Conditional Voluntary and 3 Day Interim History: Pt calmer, asking to add thorazine and ativan as he felt these medications helpful. He has been mostly in room, still irritable and disruptive when trying to go to group. He did show some insight as to his irritability, yelling and threatening and asking to adjust his medications to target these symptoms. He denies SI/HI. morning incident of yelling but did ask for PRN medications. Medication Compliance: Yes Side effects from medications: No Attending Groups: Yes Review of Systems Acute medical concerns: No Review of Systems Review of Systems General: No fevers, malaise, unintentional weight loss HEENT: +blurred vision. No diplopia. No sore throat, nasal congestion, rhinorrhea, sinus pain, ear pain Cardiovascular: No chest pain, palpitations, or leg edema Respiratory: No shortness of breath, wheezing, cough GI: No abdominal pain, nausea, vomiting, diarrhea, constipation, melena, hematochezia : No dysuria, hematuria, increased urinary frequency, decreased urinary output MSK: No myalgia, back pain. +bilateral shoulder pain Neuro: No headaches, weakness, paresthesias Skin: No rashes or lesions Mental Status Exam Mental Status Exam Narrative: Appearance: MO, disheveled with poor hygiene, in NAD Behavior: very agitated, paranoid, screaming at this resume writer Psychomotor: no agitation or retardation noted Speech: mumbles at times, some delayed in response, spontaneous TP: disorganized TC: hearing voices telling him to resume writer letter to the president to save the world Mood: get out Affect: agitated SI: denies HI: denies AH: reports hearing voices not overly concerned when seen VH: seeing shadows, demons Delusions: thinks staff at hospital are poisoning him, holding here since Halloween. Insight/judgment: impaired x 2. Memory/cog: alert, oriented to place, month, year not situation Diagnostics Vital Signs (24Hr): Vital Signs - 24 hr 12/24/22 20:30 12/25/22 06:00 Temperature 97.9 F 98.1 F Pulse Rate 107 H 102 H Respiratory Rate 16 Blood Pressure 136/87 132/84 Pulse Oximetry 97 98 Oxygen Delivery Method Room Air Room Air BMI result Body Mass Index 39.3 Medications Medications Current Medications Acetaminophen (Acetaminophen 325 Mg Tablet) 650 mg PO Q6H PRN PRN Reason: Headache/Pain Mild Scale (1-3) Last Admin: 12/23/22 09:26 Dose: 650 mg Al Hydroxide/Mg Hydroxide (Magnesium Hydrox/Alum Hydrox 30 Ml Oral.Susp) 30 ml PO Q6H PRN PRN Reason: Heartburn/Nausea Last Admin: 12/18/22 03:19 Dose: 30 ml Aspirin (Aspirin Enteric Coated 81 Mg Tablet.) 81 mg PO DAILY [facility] Last Admin: 12/25/22 10:30 Dose: 81 mg Atorvastatin Calcium (Atorvastatin Calcium 40 Mg Tablet) 40 mg PO BEDTIME [facility] Last Admin: 12/24/22 22:22 Dose: 40 mg Haloperidol (Haloperidol 5 Mg Tablet) 10 mg PO TID [facility] Last Admin: 12/25/22 15:00 Dose: 10 mg Lamotrigine (Lamotrigine 25 Mg Tablet) 25 mg PO DAILY [facility] Last Admin: 12/25/22 10:30 Dose: 25 mg Levothyroxine Sodium (Levothyroxine Sodium 112 Mcg Tablet) 112 mcg PO DAILY [facility] Last Admin: 12/25/22 10:30 Dose: 112 mcg Magnesium Hydroxide (Milk Of Magnesia 30 Ml Oral.Susp) 30 ml PO DAILY PRN PRN Reason: Constipation Melatonin (Melatonin 3 Mg Tablet) 9 mg PO BEDTIME [facility] Last Admin: 12/24/22 22:21 Dose: 9 mg Omeprazole (Omeprazole 20 Mg Capsule.) 20 mg PO BID [facility] Last Admin: 12/25/22 10:31 Dose: 20 mg Paroxetine HCl (Paroxetine Hcl 10 Mg Tablet) 10 mg PO DAILY [facility] Last Admin: 12/25/22 10:30 Dose: 10 mg Quetiapine Fumarate (Quetiapine Fumarate 300 Mg Tablet) 300 mg PO BEDTIME [facility] Last Admin: 12/24/22 22:22 Dose: 300 mg Quetiapine Fumarate (Quetiapine Fumarate 100 Mg Tablet) 100 mg PO BID PRN PRN Reason: agitation Last Admin: 12/25/22 11:06 Dose: 100 mg Topiramate (Topiramate 25 Mg Tablet) 25 mg PO BID [facility] Last Admin: 12/25/22 10:30 Dose: 25 mg Trazodone HCl (Trazodone Hcl 100 Mg Tablet) 100 mg PO BEDTIME [facility] Last Admin: 12/24/22 22:22 Dose: 100 mg Allergies Allergies Allergy/AdvReac Type Severity Reaction Status Date / Time No Known Allergies Allergy Verified 07/11/22 22:21 Assessment & Plan Assessment & Plan (1) Schizoaffective disorder, bipolar type: Status: Acute Code(s): F25.0 - Schizoaffective disorder, bipolar type Plan Mr. Palomares is a 47 year-old male with hx of schizophrenia who self presented to [facility] ED reporting that his house was full of demons and he did not feel safe in the community. He asked to be placed somewhere. He reported he stopped taking his medications.Pt presents with delusions of having special perdomo to save the world, AH telling him to resume writer to president. He also reports seeing demons and has crosses in his room. Utox is neg. BAL neg. We discussed risks, benefits and alternative tx options. Pt agrees to restart combination of haldol, seroquel. PLAN 1. Admit to M3, CV, 15 minutes checks for safety. 2. Continue haldol, seroquel 3. Obtain collateral information 4. Aftercare planning 12/19/2022 Patient less irritable and agitated continue Seroquel and Haldol monitor for adverse effects. 12/20/22 continue tx. 12/21: No medication changes 12/22 Add PRN Seroquel 12/23 no med changes 12/24 given Thorazine 100mg IM and ativan 2mg Im, pt increasingly more paranoid and threatening to harm staff. 12/25- will add thorazine for agitation. Pt at this point fixated on not discontinuing seroquel but adding thorazine to haldol and seroquel. Reason for continued inpatient stay Substantial Risk for: inability to function Time Spent With Patient Time: Total time managing care of this patient today ____ minutes.
[2022-12-25] MEDS: traZODone HCL 100 MG TABLET PO (20:41)
[2022-12-25] MEDS: QUEtiapine Fumarate 300 MG TABLET PO (20:41)
[2022-12-25] MEDS: Melatonin 3 MG TABLET 9 MG PO (20:41)
[2022-12-25] MEDS: LORazepam 1 MG TABLET PO (20:42)
[2022-12-25] MEDS: Atorvastatin Calcium 40 MG TABLET PO (20:42)
[2022-12-25 20:45] VITALS: BP 136/62; PULSE 96; RESP 20; TEMP 36.6; O2SAT 93
[2022-12-26 07:00] VITALS: BMI 40.4
[2022-12-26 09:54] VITALS: BP 138/84; PULSE 100; RESP 18; TEMP 36.4; O2SAT 95
[2022-12-26] MEDS: Acetaminophen 325 MG TABLET 650 MG PO ×2 (09:58→20:38)
[2022-12-26] MEDS: Topiramate 25 MG TABLET PO ×2 (09:58→20:39)
[2022-12-26] MEDS: LORazepam 1 MG TABLET PO ×2 (09:58→20:39)
[2022-12-26] MEDS: HaloperidoL 5 MG TABLET 10 MG PO ×3 (09:58→20:39)
[2022-12-26] MEDS: Levothyroxine Sodium 112 MCG TABLET PO (09:58)
[2022-12-26] MEDS: Omeprazole 20 MG CAPSULE.DR PO ×2 (09:58→20:39)
[2022-12-26] MEDS: lamoTRIgine 25 MG TABLET PO (09:58)
[2022-12-26] MEDS: PARoxetine HCL 10 MG TABLET PO (09:58)
[2022-12-26] MEDS: Aspirin Enteric Coated 81 MG TABLET.DR PO (09:58)
[2022-12-26] MEDS: chlorproMAZINE HCl 100 MG TABLET PO (09:59)
[2022-12-26 20:30] VITALS: BP 154/74; PULSE 100; RESP 18; TEMP 36.7; O2SAT 96
[2022-12-26] MEDS: Atorvastatin Calcium 40 MG TABLET PO (20:39)
[2022-12-26] MEDS: traZODone HCL 100 MG TABLET PO (20:39)
[2022-12-26] MEDS: Melatonin 3 MG TABLET 9 MG PO (20:40)
[2022-12-26] MEDS: QUEtiapine Fumarate 300 MG TABLET PO (20:40)
--- NOTE | 2022-12-26 21:46 | HO.PSYCHPN ---
Subjective Subjective Date of Service: 12/26/22 Reason For Visit: Schizophrenia Interim History: Pt has been mostly in his room. He has been sleeping most of the day. Pt reports he is not working with the [employer]- voices not telling him as much what to do. He denies SI/HI. He does note he is calmer. We discussed considering taper off one of the antipsychotics either seroquel or thorazine as he will be overly sedated. Medication Compliance: Yes Review of Systems Review of Systems General: No fevers, malaise, unintentional weight loss HEENT: +blurred vision. No diplopia. No sore throat, nasal congestion, rhinorrhea, sinus pain, ear pain Cardiovascular: No chest pain, palpitations, or leg edema Respiratory: No shortness of breath, wheezing, cough GI: No abdominal pain, nausea, vomiting, diarrhea, constipation, melena, hematochezia : No dysuria, hematuria, increased urinary frequency, decreased urinary output MSK: No myalgia, back pain. +bilateral shoulder pain Neuro: No headaches, weakness, paresthesias Skin: No rashes or lesions Mental Status Exam Mental Status Exam Narrative: Appearance: MO, disheveled with poor hygiene, in NAD Behavior: less guarded and less irritable Psychomotor: no agitation or retardation noted Speech: mumbles at times, regular rate/rhythm, spontaneous TP: disorganized TC: hearing voices telling him to engineering technical writer letter to the president to save the world Mood: better Affect: constricted, less irritable SI: denies HI: denies AH: reports hearing voices not overly concerned when seen VH: seeing shadows, demons Delusions: thinks staff at hospital are poisoning him, holding here since Halloween. Insight/judgment: impaired x 2. Memory/cog: alert, oriented to place, month, year not situation Diagnostics Vital Signs (24Hr): Vital Signs - 24 hr 12/26/22 09:54 Temperature 97.6 F Pulse Rate 100 Respiratory Rate 18 Blood Pressure 138/84 Pulse Oximetry 95 Oxygen Delivery Method Room Air BMI result Body Mass Index 40.4 Medications Medications Current Medications Acetaminophen (Acetaminophen 325 Mg Tablet) 650 mg PO Q6H PRN PRN Reason: Headache/Pain Mild Scale (1-3) Last Admin: 12/26/22 20:38 Dose: 650 mg Al Hydroxide/Mg Hydroxide (Magnesium Hydrox/Alum Hydrox 30 Ml Oral.Susp) 30 ml PO Q6H PRN PRN Reason: Heartburn/Nausea Last Admin: 12/18/22 03:19 Dose: 30 ml Aspirin (Aspirin Enteric Coated 81 Mg Tablet.) 81 mg PO DAILY [facility] Last Admin: 12/26/22 09:58 Dose: 81 mg Atorvastatin Calcium (Atorvastatin Calcium 40 Mg Tablet) 40 mg PO BEDTIME [facility] Last Admin: 12/26/22 20:39 Dose: 40 mg Chlorpromazine HCl (Chlorpromazine Hcl 100 Mg Tablet) 100 mg PO BID PRN PRN Reason: agitation Last Admin: 12/26/22 09:59 Dose: 100 mg Haloperidol (Haloperidol 5 Mg Tablet) 10 mg PO TID [facility] Last Admin: 12/26/22 20:39 Dose: 10 mg Lamotrigine (Lamotrigine 25 Mg Tablet) 25 mg PO DAILY [facility] Last Admin: 12/26/22 09:58 Dose: 25 mg Levothyroxine Sodium (Levothyroxine Sodium 112 Mcg Tablet) 112 mcg PO DAILY [facility] Last Admin: 12/26/22 09:58 Dose: 112 mcg Lorazepam (Lorazepam 1 Mg Tablet) 1 mg PO BID [facility] Last Admin: 12/26/22 20:39 Dose: 1 mg Lorazepam (Lorazepam 1 Mg Tablet) 1 mg PO BID PRN PRN Reason: severe anxiety/agitation Magnesium Hydroxide (Milk Of Magnesia 30 Ml Oral.Susp) 30 ml PO DAILY PRN PRN Reason: Constipation Melatonin (Melatonin 3 Mg Tablet) 9 mg PO BEDTIME [facility] Last Admin: 12/26/22 20:40 Dose: 9 mg Omeprazole (Omeprazole 20 Mg Capsule.) 20 mg PO BID [facility] Last Admin: 12/26/22 20:39 Dose: 20 mg Paroxetine HCl (Paroxetine Hcl 10 Mg Tablet) 10 mg PO DAILY [facility] Last Admin: 12/26/22 09:58 Dose: 10 mg Quetiapine Fumarate (Quetiapine Fumarate 300 Mg Tablet) 300 mg PO BEDTIME [facility] Last Admin: 12/26/22 20:40 Dose: 300 mg Topiramate (Topiramate 25 Mg Tablet) 25 mg PO BID [facility] Last Admin: 12/26/22 20:39 Dose: 25 mg Trazodone HCl (Trazodone Hcl 100 Mg Tablet) 100 mg PO BEDTIME [facility] Last Admin: 12/26/22 20:39 Dose: 100 mg Allergies Allergies Allergy/AdvReac Type Severity Reaction Status Date / Time No Known Allergies Allergy Verified 07/11/22 22:21 Assessment & Plan Assessment & Plan (1) Schizoaffective disorder, bipolar type: Status: Acute Code(s): F25.0 - Schizoaffective disorder, bipolar type Plan Mr. Palomares is a 47 year-old male with hx of schizophrenia who self presented to [facility] ED reporting that his house was full of demons and he did not feel safe in the community. He asked to be placed somewhere. He reported he stopped taking his medications.Pt presents with delusions of having special perdomo to save the world, AH telling him to engineering technical writer to president. He also reports seeing demons and has crosses in his room. Utox is neg. BAL neg. We discussed risks, benefits and alternative tx options. Pt agrees to restart combination of haldol, seroquel. PLAN 1. Admit to M3, CV, 15 minutes checks for safety. 2. Continue haldol, seroquel 3. Obtain collateral information 4. Aftercare planning 12/19/2022 Patient less irritable and agitated continue Seroquel and Haldol monitor for adverse effects. 12/20/22 continue tx. 12/21: No medication changes 12/22 Add PRN Seroquel 12/23 no med changes 12/24 given Thorazine 100mg IM and ativan 2mg Im, pt increasingly more paranoid and threatening to harm staff. 12/25- will add thorazine for agitation. Pt at this point fixated on not discontinuing seroquel but adding thorazine to haldol and seroquel. 12/26 continue tx. Reason for continued inpatient stay Substantial Risk for: harm to others and inability to function Time Spent With Patient Time: Total time managing care of this patient today ____ minutes.
[2022-12-27 09:40] VITALS: BP 134/84; PULSE 90; RESP 18; TEMP 36.7; O2SAT 97
[2022-12-27] MEDS: LORazepam 1 MG TABLET PO ×2 (09:40→20:35)
[2022-12-27] MEDS: Topiramate 25 MG TABLET PO ×2 (09:40→20:35)
[2022-12-27] MEDS: HaloperidoL 5 MG TABLET 10 MG PO ×3 (09:40→20:35)
[2022-12-27] MEDS: Levothyroxine Sodium 112 MCG TABLET PO (09:41)
[2022-12-27] MEDS: Aspirin Enteric Coated 81 MG TABLET.DR PO (09:41)
[2022-12-27] MEDS: chlorproMAZINE HCl 100 MG TABLET PO (09:41)
[2022-12-27] MEDS: Omeprazole 20 MG CAPSULE.DR PO ×2 (09:41→20:35)
[2022-12-27] MEDS: lamoTRIgine 25 MG TABLET PO (09:42)
[2022-12-27] MEDS: PARoxetine HCL 10 MG TABLET PO (09:42)
[2022-12-27] MEDS: Melatonin 3 MG TABLET 9 MG PO (20:34)
[2022-12-27] MEDS: traZODone HCL 100 MG TABLET PO (20:35)
[2022-12-27] MEDS: QUEtiapine Fumarate 300 MG TABLET PO (20:35)
[2022-12-27] MEDS: Atorvastatin Calcium 40 MG TABLET PO (20:35)
[2022-12-27 20:42] VITALS: BP 120/61; PULSE 102; TEMP 37.1; O2SAT 97
--- NOTE | 2022-12-27 21:53 | HO.PSYCHPN ---
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 Pt has been mostly in bed, somnolent. We discussed that as he gets better we have to lower some of the prn meds to avoid oversedation. However, pt states no! I want them like this. No further behavioral outbursts, less paranoid, but continues when going to groups to be disruptive to others. Medication Compliance: Yes Side effects from medications: No Attending Groups: Intermittent Review of Systems Review of Systems General: No fevers, malaise, unintentional weight loss HEENT: +blurred vision. No diplopia. No sore throat, nasal congestion, rhinorrhea, sinus pain, ear pain Cardiovascular: No chest pain, palpitations, or leg edema Respiratory: No shortness of breath, wheezing, cough GI: No abdominal pain, nausea, vomiting, diarrhea, constipation, melena, hematochezia : No dysuria, hematuria, increased urinary frequency, decreased urinary output MSK: No myalgia, back pain. +bilateral shoulder pain Neuro: No headaches, weakness, paresthesias Skin: No rashes or lesions Mental Status Exam Mental Status Exam Narrative: Appearance: MO, disheveled with poor hygiene, in NAD Behavior: less guarded and less irritable Psychomotor: no agitation or retardation noted Speech: mumbles at times, regular rate/rhythm, spontaneous TP: disorganized TC: hearing voices telling him to health science writer letter to the president to save the world Mood: better Affect: constricted, less irritable SI: denies HI: denies AH: reports hearing voices not overly concerned when seen VH: seeing shadows, demons Delusions: thinks staff at hospital are poisoning him, holding here since Halloween. Insight/judgment: impaired x 2. Memory/cog: alert, oriented to place, month, year not situation Diagnostics Vital Signs (24Hr): Vital Signs - 24 hr 12/27/22 09:40 12/27/22 20:42 Temperature 98.1 F 98.8 F Pulse Rate 90 102 H Respiratory Rate 18 Blood Pressure 134/84 120/61 Pulse Oximetry 97 97 Oxygen Delivery Method Room Air Room Air BMI result Body Mass Index 40.4 Medications Medications Current Medications Acetaminophen (Acetaminophen 325 Mg Tablet) 650 mg PO Q6H PRN PRN Reason: Headache/Pain Mild Scale (1-3) Last Admin: 12/26/22 20:38 Dose: 650 mg Al Hydroxide/Mg Hydroxide (Magnesium Hydrox/Alum Hydrox 30 Ml Oral.Susp) 30 ml PO Q6H PRN PRN Reason: Heartburn/Nausea Last Admin: 12/18/22 03:19 Dose: 30 ml Aspirin (Aspirin Enteric Coated 81 Mg Tablet.) 81 mg PO DAILY [facility] Last Admin: 12/27/22 09:41 Dose: 81 mg Atorvastatin Calcium (Atorvastatin Calcium 40 Mg Tablet) 40 mg PO BEDTIME [facility] Last Admin: 12/27/22 20:35 Dose: 40 mg Chlorpromazine HCl (Chlorpromazine Hcl 100 Mg Tablet) 100 mg PO BID PRN PRN Reason: agitation Last Admin: 12/27/22 09:41 Dose: 100 mg Haloperidol (Haloperidol 5 Mg Tablet) 10 mg PO TID [facility] Last Admin: 12/27/22 20:35 Dose: 10 mg Lamotrigine (Lamotrigine 25 Mg Tablet) 25 mg PO DAILY [facility] Last Admin: 12/27/22 09:42 Dose: 25 mg Levothyroxine Sodium (Levothyroxine Sodium 112 Mcg Tablet) 112 mcg PO DAILY [facility] Last Admin: 12/27/22 09:41 Dose: 112 mcg Lorazepam (Lorazepam 1 Mg Tablet) 1 mg PO BID [facility] Last Admin: 12/27/22 20:35 Dose: 1 mg Lorazepam (Lorazepam 1 Mg Tablet) 1 mg PO BID PRN PRN Reason: severe anxiety/agitation Magnesium Hydroxide (Milk Of Magnesia 30 Ml Oral.Susp) 30 ml PO DAILY PRN PRN Reason: Constipation Melatonin (Melatonin 3 Mg Tablet) 9 mg PO BEDTIME [facility] Last Admin: 12/27/22 20:34 Dose: 9 mg Omeprazole (Omeprazole 20 Mg Capsule.) 20 mg PO BID [facility] Last Admin: 12/27/22 20:35 Dose: 20 mg Paroxetine HCl (Paroxetine Hcl 10 Mg Tablet) 10 mg PO DAILY [facility] Last Admin: 12/27/22 09:42 Dose: 10 mg Quetiapine Fumarate (Quetiapine Fumarate 300 Mg Tablet) 300 mg PO BEDTIME [facility] Last Admin: 12/27/22 20:35 Dose: 300 mg Topiramate (Topiramate 25 Mg Tablet) 25 mg PO BID [facility] Last Admin: 12/27/22 20:35 Dose: 25 mg Trazodone HCl (Trazodone Hcl 100 Mg Tablet) 100 mg PO BEDTIME [facility] Last Admin: 12/27/22 20:35 Dose: 100 mg Allergies Allergies Allergy/AdvReac Type Severity Reaction Status Date / Time No Known Allergies Allergy Verified 07/11/22 22:21 Assessment & Plan Assessment & Plan (1) Schizoaffective disorder, bipolar type: Status: Acute Code(s): F25.0 - Schizoaffective disorder, bipolar type Plan Mr. Palomares is a 47 year-old male with hx of schizophrenia who self presented to [facility] ED reporting that his house was full of demons and he did not feel safe in the community. He asked to be placed somewhere. He reported he stopped taking his medications.Pt presents with delusions of having special perdomo to save the world, AH telling him to health science writer to president. He also reports seeing demons and has crosses in his room. Utox is neg. BAL neg. We discussed risks, benefits and alternative tx options. Pt agrees to restart combination of haldol, seroquel. PLAN 1. Admit to M3, CV, 15 minutes checks for safety. 2. Continue haldol, seroquel 3. Obtain collateral information 4. Aftercare planning 12/19/2022 Patient less irritable and agitated continue Seroquel and Haldol monitor for adverse effects. 12/20/22 continue tx. 12/21: No medication changes 12/22 Add PRN Seroquel 12/23 no med changes 12/24 given Thorazine 100mg IM and ativan 2mg Im, pt increasingly more paranoid and threatening to harm staff. 12/25- will add thorazine for agitation. Pt at this point fixated on not discontinuing seroquel but adding thorazine to haldol and seroquel. 12/26 continue tx. 12/27 continue tx. Reason for continued inpatient stay Substantial Risk for: inability to function Time Spent With Patient Time: Total time managing care of this patient today ____ minutes.
[2022-12-28] MEDS: chlorproMAZINE HCl 100 MG TABLET 50 MG PO (10:23)
[2022-12-28] MEDS: Aspirin Enteric Coated 81 MG TABLET.DR PO (10:24)
[2022-12-28] MEDS: Acetaminophen 325 MG TABLET 650 MG PO (10:25)
[2022-12-28] MEDS: LORazepam 1 MG TABLET PO ×2 (10:26→20:38)
[2022-12-28] MEDS: PARoxetine HCL 10 MG TABLET PO (10:26)
[2022-12-28] MEDS: HaloperidoL 5 MG TABLET 10 MG PO ×3 (10:27→20:38)
[2022-12-28] MEDS: Levothyroxine Sodium 112 MCG TABLET PO (10:27)
[2022-12-28] MEDS: lamoTRIgine 25 MG TABLET PO (10:27)
[2022-12-28] MEDS: Omeprazole 20 MG CAPSULE.DR PO ×2 (10:27→20:38)
--- NOTE | 2022-12-28 12:13 | P.PNPSI_ITS ---
Subjective Subjective Date of Service: 12/28/22 Reason For Visit: Schizophrenia Subjective Notes: Conditional Voluntary and 3 Day Healthcare Proxy: No Guardianship: No Medical Problems Affecting Mental Status: No Interim History: Patient was seen and discussed in rounds today. Records and plans were reviewed. He continues to be isolative and withdrawn. He has thought blocking. He is less angry. P.r.n. Thorazine has been helpful. Questions about pain medications discussed. Eating and sleeping adequately. No changes were made today Medication Compliance: Yes Attending Groups: Yes Review of Systems Review of Systems Yes all other systems are reviewed and are negative Mental Status Exam Mental Status Exam Narrative: In today's visit he is alert, oriented and pleasant. Normal speech. Little eye contact. Affect is appropriate and constricted. Some thought blocking present. No SI. No acute signs of psychosis. Cognitively he has slow thought processes and thought blocking. Judgment could not be assessed Diagnostics Vital Signs (24Hr): Vital Signs - 24 hr 12/27/22 20:42 Temperature 98.8 F Pulse Rate 102 H Blood Pressure 120/61 Pulse Oximetry 97 Oxygen Delivery Method Room Air BMI result Body Mass Index 40.4 Medications Medications Current Medications Acetaminophen (Acetaminophen 325 Mg Tablet) 650 mg PO Q6H PRN PRN Reason: Headache/Pain Mild Scale (1-3) Last Admin: 12/28/22 10:25 Dose: 650 mg Al Hydroxide/Mg Hydroxide (Magnesium Hydrox/Alum Hydrox 30 Ml Oral.Susp) 30 ml PO Q6H PRN PRN Reason: Heartburn/Nausea Last Admin: 12/18/22 03:19 Dose: 30 ml Aspirin (Aspirin Enteric Coated 81 Mg Tablet.) 81 mg PO DAILY [facility] Last Admin: 12/28/22 10:24 Dose: 81 mg Atorvastatin Calcium (Atorvastatin Calcium 40 Mg Tablet) 40 mg PO BEDTIME [facility] Last Admin: 12/27/22 20:35 Dose: 40 mg Chlorpromazine HCl (Chlorpromazine Hcl 100 Mg Tablet) 50 mg PO BID PRN PRN Reason: agitation Last Admin: 12/28/22 10:23 Dose: 50 mg Haloperidol (Haloperidol 5 Mg Tablet) 10 mg PO TID [facility] Last Admin: 12/28/22 10:27 Dose: 10 mg Lamotrigine (Lamotrigine 25 Mg Tablet) 25 mg PO DAILY [facility] Last Admin: 12/28/22 10:27 Dose: 25 mg Levothyroxine Sodium (Levothyroxine Sodium 112 Mcg Tablet) 112 mcg PO DAILY [facility] Last Admin: 12/28/22 10:27 Dose: 112 mcg Lorazepam (Lorazepam 1 Mg Tablet) 1 mg PO BID [facility] Last Admin: 12/28/22 10:26 Dose: 1 mg Lorazepam (Lorazepam 1 Mg Tablet) 1 mg PO BID PRN PRN Reason: severe anxiety/agitation Magnesium Hydroxide (Milk Of Magnesia 30 Ml Oral.Susp) 30 ml PO DAILY PRN PRN Reason: Constipation Melatonin (Melatonin 3 Mg Tablet) 9 mg PO BEDTIME [facility] Last Admin: 12/27/22 20:34 Dose: 9 mg Omeprazole (Omeprazole 20 Mg Capsule.Dr) 20 mg PO BID [facility] Last Admin: 12/28/22 10:27 Dose: 20 mg Paroxetine HCl (Paroxetine Hcl 10 Mg Tablet) 10 mg PO DAILY [facility] Last Admin: 12/28/22 10:26 Dose: 10 mg Quetiapine Fumarate (Quetiapine Fumarate 300 Mg Tablet) 300 mg PO BEDTIME [facility] Last Admin: 12/27/22 20:35 Dose: 300 mg Trazodone HCl (Trazodone Hcl 100 Mg Tablet) 100 mg PO BEDTIME [facility] Last Admin: 12/27/22 20:35 Dose: 100 mg Allergies Allergies Allergy/AdvReac Type Severity Reaction Status Date / Time No Known Allergies Allergy Verified 07/11/22 22:21 Assessment & Plan Assessment & Plan (1) Schizoaffective disorder, bipolar type: Status: Acute Code(s): F25.0 - Schizoaffective disorder, bipolar type Plan Mr. Palomares is a 47 year-old male with hx of schizophrenia who self presented to [facility] ED reporting that his house was full of demons and he did not feel safe in the community. He asked to be placed somewhere. He reported he stopped taking his medications.Pt presents with delusions of having special perdomo to save the world, AH telling him to selling underwriter to president. He also reports seeing demons and has crosses in his room. Utox is neg. BAL neg. We discussed risks, benefits and alternative tx options. Pt agrees to restart combination of haldol, seroquel. PLAN 1. Admit to M3, CV, 15 minutes checks for safety. 2. Continue haldol, seroquel 3. Obtain collateral information 4. Aftercare planning 12/19/2022 Patient less irritable and agitated continue Seroquel and Haldol monitor for adverse effects. 12/20/22 continue tx. 12/21: No medication changes 12/22 Add PRN Seroquel 12/23 no med changes 12/24 given Thorazine 100mg IM and ativan 2mg Im, pt increasingly more paranoid and threatening to harm staff. 12/25- will add thorazine for agitation. Pt at this point fixated on not discontinuing seroquel but adding thorazine to haldol and seroquel. 12/26 continue tx. 12/27 continue tx. 12/28: Continue current regimen and plans Reason for continued inpatient stay Substantial Risk for: med/psych decompensation Time Spent With Patient Time: Total time managing care of this patient today ____ minutes.
[2022-12-28] MEDS: QUEtiapine Fumarate 300 MG TABLET PO (20:37)
[2022-12-28] MEDS: Atorvastatin Calcium 40 MG TABLET PO (20:37)
[2022-12-28] MEDS: Melatonin 3 MG TABLET 9 MG PO (20:37)
[2022-12-28] MEDS: traZODone HCL 100 MG TABLET PO (20:38)
[2022-12-28 20:41] VITALS: BP 144/87; PULSE 84; TEMP 36.9; O2SAT 95
[2022-12-29 07:49] VITALS: BP 150/79; PULSE 88; RESP 18; TEMP 36.7; O2SAT 94
[2022-12-29] MEDS: Acetaminophen 325 MG TABLET 650 MG PO (07:53)
[2022-12-29] MEDS: lamoTRIgine 25 MG TABLET PO (07:54)
[2022-12-29] MEDS: Levothyroxine Sodium 112 MCG TABLET PO (07:54)
[2022-12-29] MEDS: Omeprazole 20 MG CAPSULE.DR PO ×2 (07:55→20:59)
[2022-12-29] MEDS: LORazepam 1 MG TABLET PO ×2 (07:55→20:59)
[2022-12-29] MEDS: chlorproMAZINE HCl 100 MG TABLET 50 MG PO (07:55)
[2022-12-29] MEDS: Aspirin Enteric Coated 81 MG TABLET.DR PO (07:55)
[2022-12-29] MEDS: PARoxetine HCL 10 MG TABLET PO ×2 (07:56→13:16)
[2022-12-29] MEDS: HaloperidoL 5 MG TABLET 10 MG PO ×3 (07:56→20:59)
--- NOTE | 2022-12-29 11:42 | P.PNPSI_ITS ---
Subjective Subjective Date of Service: 12/29/22 Reason For Visit: Schizophrenia Subjective Notes: Conditional Voluntary and 3 Day Healthcare Proxy: No Guardianship: No Medical Problems Affecting Mental Status: No Interim History: Patient was seen and discussed in rounds today. Records and plans were reviewed. He has been stable but states that he needs to increase his Paxil to his original dose of 20 mg to have some affect. I will change that today. Eating and sleeping adequately. He does have a 3 day notice an which is up tomorrow. He also has lot of dryness on his scalp and is requesting something to help with that. Eucerin cream is ordered. Medication Compliance: Yes Attending Groups: Yes Review of Systems Review of Systems Dry skin/scalp Yes all other systems are reviewed and are negative Mental Status Exam Mental Status Exam Narrative: In today's visit he is alert, oriented and pleasant. Normal speech. Little eye contact. Affect is appropriate and constricted. Some thought blocking present. No SI. No acute signs of psychosis. No acute signs of psychosis but chronic parameters persisting. Cognitively he has slow thought processes and thought blocking. Judgment could not be assessed Diagnostics Vital Signs (24Hr): Vital Signs - 24 hr 12/28/22 20:41 12/29/22 07:49 Temperature 98.5 F 98.0 F Pulse Rate 84 88 Respiratory Rate 18 Blood Pressure 144/87 H 150/79 H Pulse Oximetry 95 94 Oxygen Delivery Method Room Air Room Air BMI result Body Mass Index 40.4 Medications Medications Current Medications Acetaminophen (Acetaminophen 325 Mg Tablet) 650 mg PO Q6H PRN PRN Reason: Headache/Pain Mild Scale (1-3) Last Admin: 12/29/22 07:53 Dose: 650 mg Al Hydroxide/Mg Hydroxide (Magnesium Hydrox/Alum Hydrox 30 Ml Oral.Susp) 30 ml PO Q6H PRN PRN Reason: Heartburn/Nausea Last Admin: 12/18/22 03:19 Dose: 30 ml Aspirin (Aspirin Enteric Coated 81 Mg Tablet.) 81 mg PO DAILY [facility] Last Admin: 12/29/22 07:55 Dose: 81 mg Atorvastatin Calcium (Atorvastatin Calcium 40 Mg Tablet) 40 mg PO BEDTIME [facility] Last Admin: 12/28/22 20:37 Dose: 40 mg Chlorpromazine HCl (Chlorpromazine Hcl 100 Mg Tablet) 50 mg PO BID PRN PRN Reason: agitation Last Admin: 12/29/22 07:55 Dose: 50 mg Haloperidol (Haloperidol 5 Mg Tablet) 10 mg PO TID [facility] Last Admin: 12/29/22 07:56 Dose: 10 mg Lamotrigine (Lamotrigine 25 Mg Tablet) 25 mg PO DAILY [facility] Last Admin: 12/29/22 07:54 Dose: 25 mg Levothyroxine Sodium (Levothyroxine Sodium 112 Mcg Tablet) 112 mcg PO DAILY [facility] Last Admin: 12/29/22 07:54 Dose: 112 mcg Lorazepam (Lorazepam 1 Mg Tablet) 1 mg PO BID [facility] Last Admin: 12/29/22 07:55 Dose: 1 mg Lorazepam (Lorazepam 1 Mg Tablet) 1 mg PO BID PRN PRN Reason: severe anxiety/agitation Magnesium Hydroxide (Milk Of Magnesia 30 Ml Oral.Susp) 30 ml PO DAILY PRN PRN Reason: Constipation Melatonin (Melatonin 3 Mg Tablet) 9 mg PO BEDTIME [facility] Last Admin: 12/28/22 20:37 Dose: 9 mg Omeprazole (Omeprazole 20 Mg Capsule.Dr) 20 mg PO BID [facility] Last Admin: 12/29/22 07:55 Dose: 20 mg Paroxetine HCl (Paroxetine Hcl 20 Mg Tablet) 20 mg PO DAILY [facility] Quetiapine Fumarate (Quetiapine Fumarate 300 Mg Tablet) 300 mg PO BEDTIME [facility] Last Admin: 12/28/22 20:37 Dose: 300 mg Trazodone HCl (Trazodone Hcl 100 Mg Tablet) 100 mg PO BEDTIME [facility] Last Admin: 12/28/22 20:38 Dose: 100 mg Allergies Allergies Allergy/AdvReac Type Severity Reaction Status Date / Time No Known Allergies Allergy Verified 07/11/22 22:21 Assessment & Plan Assessment & Plan (1) Schizoaffective disorder, bipolar type: Status: Acute Code(s): F25.0 - Schizoaffective disorder, bipolar type Plan Mr. Palomares is a 47 year-old male with hx of schizophrenia who self presented to [facility] ED reporting that his house was full of demons and he did not feel safe in the community. He asked to be placed somewhere. 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 He also reports seeing demons and has crosses in his room. Utox is neg. BAL neg. We discussed risks, benefits and alternative tx options. Pt agrees to restart combination of haldol, seroquel. PLAN 1. Admit to M3, CV, 15 minutes checks for safety. 2. Continue haldol, seroquel 3. Obtain collateral information 4. Aftercare planning 12/19/2022 Patient less irritable and agitated continue Seroquel and Haldol monitor for adverse effects. 12/20/22 continue tx. 12/21: No medication changes 12/22 Add PRN Seroquel 12/23 no med changes 12/24 given Thorazine 100mg IM and ativan 2mg Im, pt increasingly more paranoid and threatening to harm staff. 12/25- will add thorazine for agitation. Pt at this point fixated on not discontinuing seroquel but adding thorazine to haldol and seroquel. 12/26 continue tx. 12/27 continue tx. 12/28: Continue current regimen and plans 12/29: Continue current regimen and plans. Increase Paxil to 20 mg Patient educated on: medication risk/benefits Reason for continued inpatient stay Substantial Risk for: med/psych decompensation Time Spent With Patient Time: Total time managing care of this patient today ____ minutes.
[2022-12-29] MEDS: Mineral Oil/Petrolatum,White 106 GM Tube 1 APPL TOPICAL (13:16)
[2022-12-29 20:19] VITALS: BP 150/78; PULSE 104; RESP 16; TEMP 37; O2SAT 98
[2022-12-29] MEDS: traZODone HCL 100 MG TABLET PO (20:59)
[2022-12-29] MEDS: QUEtiapine Fumarate 300 MG TABLET PO (20:59)
[2022-12-29] MEDS: Melatonin 3 MG TABLET 9 MG PO (20:59)
[2022-12-29] MEDS: Atorvastatin Calcium 40 MG TABLET PO (20:59)
[2022-12-30 08:50] VITALS: BP 118/75; PULSE 86; RESP 18; TEMP 36.4; O2SAT 94
[2022-12-30] MEDS: lamoTRIgine 25 MG TABLET PO (09:17)
[2022-12-30] MEDS: Levothyroxine Sodium 112 MCG TABLET PO (09:17)
[2022-12-30] MEDS: HaloperidoL 5 MG TABLET 10 MG PO ×2 (09:18→14:14)
[2022-12-30] MEDS: PARoxetine HCL 20 MG TABLET PO (09:18)
[2022-12-30] MEDS: Aspirin Enteric Coated 81 MG TABLET.DR PO (09:18)
[2022-12-30] MEDS: LORazepam 1 MG TABLET PO (09:19)
[2022-12-30] MEDS: Acetaminophen 325 MG TABLET 650 MG PO (09:19)
[2022-12-30] MEDS: Omeprazole 20 MG CAPSULE.DR PO (09:19)
--- NOTE | 2022-12-30 12:27 | PC.NURSE ---
Patient alert, looking forward to discharge. Patient denies SI/HI, denies VH- reports chronic AH which he reports are chronic and are currently in control and not concerning him. Reviewed belongings, valuables with pt- pt reports all belongings and valuables are accounted for, no concerns reported.
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
--- NOTE | 2022-12-30 14:55 | PC.NURSE ---
Lyft ride arranged by DARSH[facility]. Patient aware, escorted to main entrance to catch Lyft ride.
== END 2022-12-30 14:56 | disposition home or self-care (01) | DRG 885 ==
PROVIDERS: Clinical Nurse Specialist Psychiatric/Mental Health, Adult; Admitting Provider Psychiatry & Neurology Psychiatry; Visit Provider Psychiatry & Neurology Psychiatry
DX: F25.0 Schizoaffective disorder, bipolar type (principal); Z68.41 Body mass index [BMI] 40.0-44.9, adult; E78.5 Hyperlipidemia, unspecified; R73.03 Prediabetes; G89.29 Other chronic pain; K21.9 Gastro-esophageal reflux disease without esophagitis; F43.10 Post-traumatic stress disorder, unspecified; E03.9 Hypothyroidism, unspecified; E66.01 Morbid (severe) obesity due to excess calories; Z91.148 Patient's other noncompliance with medication regimen for other reason; Z79.82 Long term (current) use of aspirin; Z79.890 Hormone replacement therapy; Z79.899 Other long term (current) drug therapy
CPT/HCPCS: 36415; 80061; 82607; 82746; 83036; 83735; 84439; 84443; 93005; J2060; J3230